=== PATIENT | male | born 1955 | race Caucasian/White ===

== ENCOUNTER → 2016-06-10 | Outpatient (CLI) | payer OTHER ==
[2015-01-23 12:28] VITALS: BP 140/76
--- NOTE | 2016-06-10 16:49 | VAS ---
HISTORY: Bilateral leg pain. Both feet swollen. Study: Bilateral lower extremity venous Doppler Comparison: None. TECHNIQUE: Real-time dynamic grayscale, color flow and complete spectral Doppler ultrasound examina tion of the major deep venous structures were obtained of both lower extremities. FINDINGS: Right lower extremity: Real-time examination shows no evidence of thrombus within the common femora l, superficial femoral, or popliteal veins. There is normal compressibility throughout. Color flow i maging shows normal venous blood flow within the major vessels. Doppler examination shows normal katie ous waveforms with appropriate respiratory variation and augmentation. Left lower extremity: Real-time examination shows no evidence of thrombus within the common femoral, superficial femoral, or popliteal veins. There is normal compressibility throughout. Color flow bob ging shows normal venous blood flow within the major vessels. Doppler examination shows normal venou s waveforms with appropriate respiratory variation and augmentation. IMPRESSION: 1. Normal bilateral lower extremity venous Doppler, without evidence of DVT. Reported By:
== END ==
LOC: RAD 15:32
PROVIDERS: ATTEND Internal Medicine
DX: M79.604 Pain in right leg (principal); M79.605 Pain in left leg; R60.1 Generalized edema
CPT/HCPCS: 93970

== ENCOUNTER → 2016-07-20 | Outpatient (CLI) | payer OTHER ==
[2015-01-23 12:28] VITALS: BP 140/76
--- NOTE | 2016-07-20 16:54 | MRI ---
MRI right shoulder without contrast Indication: Right shoulder pain. Comparison: Radiograph 05/26/2016 Technique: Multiplanar, multisequence MR images of the right shoulder were obtained without contrast . Findings: There is widening of the AC joint, similar to the recent radiograph, without significant d isplacement of the distal clavicle in the craniocaudal plane. There is a moderate amount of fluid wi thin and about the AC joint. The coracoclavicular and coracoacromial ligaments appear grossly intact . There is a high-grade undersurface tear of the anterior distal supraspinatus with tear propagation t hrough the intra substance supraspinatus critical zone fibers, likely into the infra spinatus at the musculotendinous junction, as there is a small amount of fluid noted in this region. There is a full-thickness tear component involving the leading edge supraspinatus fibers, with approximately 1. 6 cm of medial tendon retraction. There is also a high-grade partial undersurface tear of the distal supraspinatus, associated with significant medial dislocation of the long head biceps tendon just a nterior to the glenohumeral articulation. The biceps tendon is diffusely thickened and frayed in thi s region, suggesting partial intrasubstance tear. The teres minor is intact. There is cystic change of superior humeral head underlying the conjoined tendon footplate, consisten t with chronic tendinopathy. There is mild diffuse glenohumeral chondrosis, without full-thickness c hondral defect. There is degenerative fraying of the superior labrum. No overt labral tear is identi fied. There is a moderate-sized joint effusion. No significant muscle atrophy is appreciated. Impression: 1. High-grade articular sided tear of the supraspinatus with mildly retracted full-thickness compone nt involving the leading edge fibers. There is also tear propagation posteriorly to the infraspinatus tendon, where there is a delaminating component along the musculotendinous junction. 2. High-grade subscapularis tear with with medial dislocation of the long head biceps tendon with pr obable intra substance biceps tendon tear. 3. Low grade AC joint injury 4. Joint effusion Reported By:
== END | disposition home or self-care (01) ==
LOC: RAD 13:13
PROVIDERS: ATTEND Internal Medicine
DX: M25.511 Pain in right shoulder (principal); S49.81XA Other specified injuries of right shoulder and upper arm, initial encounter; M25.411 Effusion, right shoulder; S46.811A Strain of other muscles, fascia and tendons at shoulder and upper arm level, right arm, initial encounter; X58.XXXA Exposure to other specified factors, initial encounter
CPT/HCPCS: 73221

== ENCOUNTER → 2017-04-25 | Outpatient (CLI) | payer OTHER ==
[2015-01-23 12:28] VITALS: BP 140/76
[~2017-04-25] MED LIST: NS 100 ML IV 100 ML IV ONE
[2017-04-25 11:07] LABS: CREATININE 1.26 mg/dL (0.70-1.30)
--- NOTE | 2017-04-25 12:59 | CT ---
HISTORY: Bronchopneumonia, mild cysts, and cough. Study: CT chest with contrast Comparison: Chest x-ray dated January 26, 2014. Technique: Multiple axial images of the chest were obtained from the thoracic inlet to the upper abdo men after the administration of IV contrast. MIP images were obtained. Dose reduction techniques incl uding Automated Exposure Control (AEC) and adjustment of mA and kV were utilized. Findings: The mediastinum does not demonstrate significant pathological lymphadenopathy. There is no paracardi al effusion observed. The thoracic aorta is normal in its contour without evidence for aneurysmal di latation. The central pulmonary arterial system does not demonstrate central filling defects to sugg est pulmonary emboli. Moderate atherosclerotic vascular calcifications of the coronary arteries. Biapical scarring. Scattered tree-in-bud and ground-glass opacities are seen throughout the lungs. No suspicious pulmonary nodules, masses, pleural effusion, focal consolidation, or pneumothorax. The ga llbladder is surgically absent. 1.7 cm simple appearing cyst within the left interpolar kidney. Remai brandon upper abdominal structures demonstrate a normal contrast appearance. Mild degenerative changes o f the spine. No aggressive osseous lesions. IMPRESSION: 1. Bilateral scattered tree-in-bud and ground-glass opacities are seen throughout the lungs. This li donya represents an underlying atypical mycobacterial infection. However, recommend clinical/laborator y correlation. 2. No CT evidence to suggest pulmonary embolus. 3. Other chronic findings as above. Reported By:
== END ==
LOC: RAD 10:40
PROVIDERS: ATTEND Internal Medicine
DX: J18.0 Bronchopneumonia, unspecified organism (principal); R05 Cough; R04.2 Hemoptysis
CPT/HCPCS: 36415; 71260; 82565; 84520; A4222

== ENCOUNTER 2017-05-31 22:37 | Inpatient (IN) | payer OTHER ==
[2017-05-31] MEDS ORDERED: NS 1000 ML 1,000 ML ONE (22:48)
--- NOTE | 2017-05-31 23:17 | DR.ABDMALE ---
HPI - Time seen Time seen: 23:00 - PCP Primary Care Physician: Farhan - Complaint Chief Complaint Doctors Comments: Patient admits to having epigastric pain around 1500 today, pain would not ease tried to vomit but pain got worse. He admits to a history of pancreatitis diagnosed 2013. The pain is epigastric non- radiating. Chief Complaint:: Started having severe abdominal pain around 3:00pm today which has became worse - Mode of arrival Mode of Arrival: EMS - Timing Onset of Chief Complaint: 05/31/17 PMH - PMH Past Medical History: Yes Past Medical History: GERD Past Medical History Comment: Hx. of Pancreatitis Past Surgical History: Yes Surgical History: Cholecystectomy, Ortho Surgery - Family History History of Family Medical Conditions: No Family Medical History: Diabetes Mellitus, Coronary Artery Disease, Hypertension - Social History Does any household member use tobacco: No Alcohol Use: None Do you use any recreational Drugs:: No Lives With: Significant Other Lives Where: Home - infectious screening In the last 2 months have you had wt loss of >10#?: NO Have you traveled outside the country in the last 6 months?: No Isolation: Standard ROS - Review of Systems Eyes: No Symptoms Reported ENTM: No Symptoms Reported Respiratoy: No Symptoms Reported Cardiovascular: No Symptoms Reported Gastrointestinal/Abdominal: No Symptoms Reported Genitourinary: No Symptoms Reported Neurological: No Symptoms Reported Musculoskeletal: No Symptoms Reported Integumentary: No Symptoms Reported Hematologic/Lymphatic: No Symptoms Reported Endocrine: No Symptoms Reported Psychiatric: No Symptoms Reported All Other Systems: Reviewed and Negative PE - Vital Signs Vital Signs: Temp Pulse Resp BP BP BP Pulse Ox 06/01/17 00:30 205/99 05/31/17 22:40 97.2 F L 58 L 18 181/95 96 01/23/15 12:00 140/76 140/76 01/22/15 04:00 136/82 - General Limitations: No Limitations General Appearance: Alert, In No Apparent Distress - Head Head Exam: Normal Inspection, Atraumatic - Eyes Eye exam: Normal Appearance, PERRL, EOMI - ENT ENT Exam: Normal Exam - Neck Neck Exam: Normal Inspection, Full ROM - Chest Chest Inspection: Normal Inspection - Respiratory Respiratory Exam: Normal Lung Sounds Bilat Respiratory Exam: Bilateral Clear to Auscultation - Cardiovascular Cardiovascular Exam: Regular Rate, Normal Rhythm - Abdominal Exam Abdominal Exam: Normal Inspection, Distention, Tenderness (epigastric). negative: Rebound, Rigidity Abdominal Tenderness: Epigastrium - Rectal Rectal Exam: Deferred - Back Back Exam: Normal Inspection - Extremeties Extremities Exam: Normal Inspection, Full ROM - Exam: Male: Deferred - Neurologic Neurological Exam: Alert, Oriented X3, CN II-XII Intact - Psychiatric Psychiatric Exam: Normal Affect - Skin Skin Exam: Warm, Dry, Intact Course - Reevaluation 1st: Improved - Consultation Called: 01:10 - Education/Counseling Educated On: Treatment, Diagnosis, Prognosis ROR - Labs Reviewed Result Diagrams: 05/31/17 23:40 05/31/17 23:40 Laboratory: WBC 17.5 X10^3/uL (3.6-10.0) H 05/31/17 23:40 RBC 4.68 X10^6/uL (4.7-6.0) L 05/31/17 23:40 Hgb 15.2 g/dL (13.5-18.0) 05/31/17 23:40 Hct 43.2 % (42.0-54.0) 05/31/17 23:40 MCV 92.3 fL (80.0-100.0) 05/31/17 23:40 MCH 32.5 pg (27.0-34.0) 05/31/17 23:40 MCHC 35.2 g/dL (33.0-35.0) H 05/31/17 23:40 RDW 14.5 % (11.6-16.5) 05/31/17 23:40 Plt Count 300 X10^3/uL (150.0-450.0) 05/31/17 23:40 MPV 7.8 fL (7.4-11.0) 05/31/17 23:40 Neut % 87.4 % (42.0-75.0) H 05/31/17 23:40 Lymph % 6.9 % (21.0-51.0) L 05/31/17 23:40 Jasper % 5.3 % (0.0-13.0) 05/31/17 23:40 Eos % 0.1 % (0.9-2.9) L 05/31/17 23:40 Baso % 0.3 % (0.2-1.0) 05/31/17 23:40 Neut # 15.3 x10^3/uL (2.2-4.8) H 05/31/17 23:40 Lymph # 1.2 X10^3/uL (1.3-2.9) L 05/31/17 23:40 Jasper # 0.9 x10^3/uL (0.3-0.8) H 05/31/17 23:40 Eos # 0.0 x10^3/uL (0.0-0.2) 05/31/17 23:40 Baso # 0.0 X10^3/uL (0.0-0.1) 05/31/17 23:40 Absolute Nucleated RBC 0.0 /100WBC 05/31/17 23:40 Sodium 141 mmol/L (136-145) 05/31/17 23:40 Corrected Sodium TNP 05/31/17 23:40 Potassium 2.3 mmol/L (3.5-5.1) L* 05/31/17 23:40 Chloride 99 mmol/L (98-107) 05/31/17 23:40 Carbon Dioxide 35.7 mmol/L (21-32) H 05/31/17 23:40 BUN 5 mg/dL (7-18) L 05/31/17 23:40 Creatinine 1.05 mg/dL (0.70-1.30) 05/31/17 23:40 Est GFR (MDRD) Af Amer > 60 (>60) 05/31/17 23:40 Est GFR (MDRD) Non-Af > 60 (>60) 05/31/17 23:40 Glucose 105 mg/dL (65-99) H 05/31/17 23:40 Calcium 8.5 mg/dL (8.5-10.1) 05/31/17 23:40 Corrected Calcium TNP 05/31/17 23:40 Total Bilirubin 0.40 mg/dL (0.2-1.0) 05/31/17 23:40 AST 20 Units/L (15-37) 05/31/17 23:40 ALT 16 Units/L (12-78) 05/31/17 23:40 Alkaline Phosphatase 74 Units/L (46-116) 05/31/17 23:40 C-Reactive Protein 8.10 mg/L (0-3.0) H 05/31/17 23:40 Total Protein 8.1 g/dL (6.4-8.2) 05/31/17 23:40 Albumin 3.9 g/dL (3.4-5.0) 05/31/17 23:40 Globulin 4.2 g/dL (2.5-4.5) 05/31/17 23:40 Albumin/Globulin Ratio 0.9 Ratio (1.1-2.1) L 05/31/17 23:40 Amylase 648 Units/L (25-115) H 05/31/17 23:40 Lipase 4958 Units/L (73-393) H 05/31/17 23:40 H. pylori IgG Antibody Positive (NEGATIVE) A 05/31/17 23:40 - XRAY XRAY Interpreted by: Radiologist (CT Abdomen: There is peripancreatic stranding , particularly about the head of the pancreas with small calcific density seen on axial image 33 near the proximal pancreas duct. There is fluid around the pancreas in the adjacvent mesenteric. There is mild thickening of the adjacent duodenum. Intrahepatic biliary dilatation noted. The gallbladder is absent. The liver, spleen, adrenal glands, stomach and small bowel are normal. Colonic diverticulosis is noted without inflammatory change. The colon and appendix show no acute abnormality. Vasculature shows minimal palque. The kidneys show no hydronephrosis with a few cyst noted. The urinary bladder and rectum are irvin. Prostate gland is normal. Inpression; Acute pancreatitis without convincing pancreas necrosis or organized fluid collection. Biliary dilatation, colonic diverticulosis, renal cysts and patchy pulmonary opacities. Chronic interstitial lung change favored.) - Diagnosis Discharge Problem: Hypokalemia Acute pancreatitis Qualifiers: Pancreatitis type: unspecified pancreatitis type Acute pancreatitis complication: unspecified Qualified Code(s): K85.90 - Acute pancreatitis without necrosis or infection, unspecified - Discharge Plan Condition: Stable - Follow ups/Referrals Follow ups/Referrals: Micah Real [Primary Care Provider] - 3 days - Instructions
[2017-05-31] MEDS ORDERED: NS 1000 ML 1,000 ML IV SCH (23:45)
[2017-05-31 23:55] LABS: BASOPHILS % (AUTO) 0.3 % (0.2-1.0); EOSINOPHILS % (AUTO) 0.1 % (0.9-2.9); HEMATOCRIT 43.2 % (42.0-54.0); HEMOGLOBIN 15.2 g/dL (13.5-18.0); LYMPHOCYTES # (AUTO) 1.2 X10^3/uL (1.3-2.9); LYMPHOCYTES % (AUTO) 6.9 % (21.0-51.0); MEAN CORPUSCULAR HEMOGLOBIN 32.5 pg (27.0-34.0); MEAN CORPUSCULAR HGB CONC 35.2 g/dL (33.0-35.0); MEAN CORPUSCULAR VOLUME 92.3 fL (80.0-100.0); MEAN PLATELET VOLUME 7.8 fL (7.4-11.0); MONOCYTES # (AUTO) 0.9 x10^3/uL (0.3-0.8); MONOCYTES % (AUTO) 5.3 % (0.0-13.0); NEUTROPHILS # (AUTO) 15.3 x10^3/uL (2.2-4.8); NEUTROPHILS % (AUTO) 87.4 % (42.0-75.0); PLATELET COUNT 300 X10^3/uL (150.0-450.0); RED BLOOD COUNT 4.68 X10^6/uL (4.7-6.0); RED CELL DISTRIBUTION WIDTH 14.5 % (11.6-16.5); WHITE BLOOD COUNT 17.5 X10^3/uL (3.6-10.0)
[2017-05-31 23:59] LABS: BLOOD UREA NITROGEN 5 mg/dL (7-18); CALCIUM 8.5 mg/dL (8.5-10.1); CARBON DIOXIDE 35.7 mmol/L (21-32); CHLORIDE 99 mmol/L (98-107); CREATININE 1.05 mg/dL (0.70-1.30); SODIUM 141 mmol/L (136-145); eGFR BLACK RACES > 60 (>60); eGFR NON BLACK RACES > 60 (>60)
[2017-06-01 00:04] LABS: ALANINE AMINOTRANSFERASE 16 Units/L (12-78); ALBUMIN 3.9 g/dL (3.4-5.0); ALKALINE PHOSPHATASE 74 Units/L (46-116); AMYLASE 648 Units/L (25-115); ASPARTATE AMINO TRANSFERASE 20 Units/L (15-37); TOTAL PROTEIN 8.1 g/dL (6.4-8.2)
[2017-06-01] MEDS ORDERED: K-LYTE EFFERVESCENT PO ONE (00:06)
[2017-06-01] MEDS ORDERED: K-LYTE EFFERVESCENT ONE (00:13)
[2017-06-01] MEDS ORDERED: DILAUDID INJ IVP ONE (00:20)
[2017-06-01] MEDS ORDERED: DILAUDID INJ ONE (00:22)
[2017-06-01 00:37] LABS: LIPASE 4958 Units/L (73-393)
[2017-06-01] MEDS ORDERED: CATAPRES TAB 0.2 MG ONE ×2 (00:43→02:47)
[2017-06-01] MEDS ORDERED: CATAPRES TAB 0.2 MG PO ONE ×2 (01:00→02:45)
--- NOTE | 2017-06-01 01:51 | CT ---
CT abdomen and pelvis with contrast Indication: Abdominal pain and pancreatitis Technique: Helical images through the abdomen and pelvis after IV contrast. Coronal and sagittal re formats provided. Comparison: 01/29/2014 CT Findings: Limited images through the lower chest shows patchy peribronchial thickening. Review of b one windows shows no destructive osseous lesion. Abdomen: There is peripancreatic stranding, particularly about the head of the pancreas with small c alcific density seen on axial image 33 near the proximal pancreas duct. There is fluid around the pa ncreas in the adjacent mesenteric. There is mild thickening of the adjacent duodenum. Intrahepatic biliary dilatation noted. The gallbladder is absent. The liver, spleen, adrenal glands, stomach and small bowel are normal. Colonic diverticulosis is noted without inflammatory change. The colon and appendix show no acute abnormality. Vasculature shows minimal plaque. The kidneys show no hydronep hrosis with a few cyst noted. Pelvis: The urinary bladder and rectum are normal. Prostate gland is normal. Impression: 1. Acute pancreatitis without convincing pancreas necrosis or organized fluid collection. 2. Biliary dilatation, colonic diverticulosis, renal cysts, and patchy pulmonary opacities. Chronic interstitial lung change favored. Reported By:
[2017-06-01] MEDS ORDERED: DILAUDID INJ IVP PRN (02:47)
[2017-06-01] MEDS ORDERED: NS + KCL 20 MEQ/L 1,000 ML IV ONE (03:30)
[2017-06-01] MEDS: NS IV SCH ×6 (03:41→20:34)
[2017-06-01] MEDS: POTASSIUM CHLORIDE IV SCH ×6 (03:41→20:34)
[2017-06-01] MEDS: NICOTINE PATCH TD SCH ×2 (03:42→08:54)
[2017-06-01] MEDS: ZANAFLEX PO SCH ×3 (05:24→21:42)
[2017-06-01 06:26] LABS: BLOOD UREA NITROGEN 6 mg/dL (7-18); CALCIUM 8.3 mg/dL (8.5-10.1); CHLORIDE 100 mmol/L (98-107); COR NA(FOR HYPERGLY) 143 mmol/L (136-145); CREATININE 1.04 mg/dL (0.70-1.30); SODIUM 142 mmol/L (136-145); eGFR BLACK RACES > 60 (>60); eGFR NON BLACK RACES > 60 (>60)
[2017-06-01] MEDS ORDERED: MAG-OX TAB PO PRN (06:28)
[2017-06-01] MEDS ORDERED: K-LYTE EFFERVESCENT PO PRN (06:28)
[2017-06-01] MEDS ORDERED: MAGNESIUM SULFATE 1 GM/100 mL PREMIX 1 GM/100 ML BAG IV PRN (06:28)
[2017-06-01] MEDS ORDERED: POTASSIUM CHL 40 MEQ/NS 0.45% 500 ML IV PRN (06:28)
[2017-06-01] MEDS ORDERED: POTASSIUM CHLORIDE LIQ 20 MEQ UDC PO PRN (06:28)
[2017-06-01] MEDS ORDERED: K-RIDER 10 MEQ/NS 100 ML 10 MEQ/100 ML BAG IV PRN (06:28)
[2017-06-01] MEDS: POTASSIUM CHL 60 MEQ/NS 0.45% 500 ML IV PRN ×2 (06:44→17:50)
[2017-06-01 08:17] LABS: BILIRUBIN,URINE NEGATIVE (NEGATIVE); BLOOD/HEMOGLOBIN,URINE 1+ (NEGATIVE); GLUCOSE, URINE NEGATIVE (NEGATIVE); KETONES,URINE NEGATIVE (NEGATIVE); LEUKOCYTE ESTERASE ,URINE NEGATIVE (NEGATIVE); NITRITES,URINE NEGATIVE (NEGATIVE); PROTEIN,URINE 2+ (NEGATIVE); UROBILINOGEN,URINE NORMAL (NORMAL)
[2017-06-01 08:26] LABS: APPEARANCE,URINE CLEAR (CLEAR); BACTERIA,URINE TRACE /HPF (NEGATIVE); COLOR,URINE YELLOW (YELLOW); RBC,URINE 0-3 /HPF (NONE SEEN); SQUAMOUS EPITHELIAL CELL,UR RARE /HPF (NEGATIVE)
[2017-06-01] MEDS: VALIUM PO PRN (08:52)
[2017-06-01] MEDS: ZEBETA TAB 5 MG PO SCH (08:52)
[2017-06-01] MEDS: FOLIC ACID TAB 1 MG PO SCH (08:52)
[2017-06-01] MEDS: NORVASC TAB 5 MG PO SCH (08:52)
[2017-06-01] MEDS: CELEBREX PO SCH (08:53)
[2017-06-01] MEDS ORDERED: NEBIVOLOL HCL 10 MG PO SCH (09:00)
[2017-06-01] MEDS: DILAUDID INJ IVP PRN ×3 (10:21→20:31)
--- NOTE | 2017-06-01 12:48 | DR.H&P ---
H&P - History & Physical for Day of: H&P Date: 06/01/17 (A) - Chief Complaint Chief Complaint: ABDOMINAL PAIN - Allergies Allergies/Adverse Reactions: Allergies Allergy/AdvReac Type Severity Reaction Status Date / Time No Known Drug Allergies Allergy Verified 06/01/17 00:31 - History of Present Illness History of Present Illness: IS A 61 YEAR OLD PATIENT OF OURS WHO PRESENTED TO THE EMERGENCY ROOM WITH COMPLAINTS OF SEVERE ABDOMINAL PAIN. PATIENT REPORTS THAT PAIN BEGAN AROUND 12 HOURS PRIOR TO ARRIVAL TO THE ER AND HAS PROGRESSIVELY GOTTEN WORSE. PATIENT REPORTS THAT PAIN IS IN THE EPIGASTRIC AREA AND IS NON-RADIATING. MEDICAL HISTORY INCLUDES GERD, HTN, CAD, HYPERLIPIDEMIA, HX OF PANCREATITIS, CHRONIC NECK AND BACK PAIN, ANXIETY, DEPRESSION, CHOLECYSTECTOMY, BILATERAL TKA, NECK SURGERY, AND ORAL SURGERY. ON ARRIVAL TO THE ER, VITALS WERE 97.2-58-18-96%-181/95. LABS WERE OBTAINED. ABNORMAL LAB VALUES INCLUDE THE FOLLOWING: WBC 17.5, RBC 4.68, POTASSIUM 2.6, BUN 6, GLUCOSE 126, CALCIUM 8.3, CRP 8.10, AMYLASE 648, LIPASE 4958. PATIENT WAS ALSO POSITIVE FOR H-PYLORI. AN ABD/PELVIS CT WAS OBTAINED AND REVEALED: Acute pancreatitis without convincing pancreas necrosis or organized fluid collection. Biliary dilatation, colonic diverticulosis, renal cysts and patchy pulmonary opacities. Chronic interstitial lung change favored. PATIENT WAS GIVEN CATAPRES 0.2MG PO X 2TABS, DILAUDID 1MG IV X 1, K-LYTE EFFERVESCENT TABS 25MEQ X 2, AND NORMAL SALINE @125ML/HR IN THE ER. HE REPORTED SLIGHT IMPROVEMENT IN PAIN. A DECREASE IN BLOOD PRESSURE TO 129/74 WAS NOTED. WE ADMITTED PATIENT TO THE HOSPITAL FOR FURTHER TREATMENT AND EVALUATION. WE PLAN TO FOLLOW UP WITH AM LABS AND CONTINUE TO MONITOR PATIENT. - Past Medical History Past Medical History: Anxiety, Arthritis, Coronary Artery Disease, Depression, Dyslipidemia, GERD, Hypertension Additional Medical History: Muscle Weakness, Chronic Neck and Back pain, PANCREATITIS - Past Surgical History Surgical History: Cholecystectomy, Ortho Surgery - Family History Family Medical History: Diabetes Mellitus, Coronary Artery Disease, Hypertension - Social History Does patient currently use any type of tobacco product: Yes Have you used tobacco products in the last 12 months: Yes Type of Tobacco Use: Cigarettes Does any household member use tobacco: No Alcohol Use: None Drug Use: None - Medications Home Medications: Alprazolam [Alprazolam] 1 tab PO HS 06/01/17 [History Confirmed 06/01/17] Celecoxib [CELEBREX 100 MG *] 200 mg PO DAILY 06/01/17 [History Confirmed ] Clonazepam [Clonazepam] 2 mg PO HS 06/01/17 [History Confirmed 06/01/17] Clonidine HCl [CATAPRES 0.2 MG TAB *] 1 tab PO HS 06/01/17 [History Confirmed ] Diazepam [Valium] 5 mg PO Q8H PRN 06/01/17 [History Confirmed 06/01/17] Esomeprazole Magnesium [Nexium 20 mg] 1 - 2 tabs PO DAILY 06/01/17 [History Confirmed 06/01/17] Folic Acid [Folic Acid] 1 tab PO DAILY 06/01/17 [History Confirmed 06/01/17] Meloxicam [Meloxicam] 1 tab PO DAILY 06/01/17 [History Confirmed 06/01/17] Oxycodone HCl/Acetaminophen [Oxycodone/Acetaminophen 10-325 mg] 1 tab PO BID PRN 06/01/17 [History Confirmed 06/01/17] Tizanidine HCl [Tizanidine HCl] 1 tab PO TID 06/01/17 [History Confirmed ] Zolpidem Tartrate [Zolpidem Tartrate] 1 tab PO HS 06/01/17 [History Confirmed ] - Review of Systems Constitutional: No Symptoms Reported Eyes: No Symptoms Reported. denies: See HPI, Pain, Vision Change, Conjunctivae Inflammation, Eyelid Inflammation, Redness, Other ENT: No Symptoms Reported. denies: See HPI, Ear Pain, Ear Discharge, Nose Pain , Nose Discharge, Nose Congestion, Mouth Pain, Mouth Swelling, Throat Pain, Throat Swelling, Other Respiratory: No Symptoms Reported. denies: See HPI, Cough, Dry, Shortness of Breath, Hemoptysis, SOB with Excertion, Pleuritic Pain, Sputum, Wheezing, Other Cardiovascular: No Symptoms Reported. denies: Chest Pain, See HPI, Palpitations , Orthopnea, Paroxysmal Noc. Dyspnea, Edema, Light Headedness, Other Gastrointestinal: See HPI, Nausea, Vomiting, Abdominal Pain Genitourinary: No Symptoms Reported. denies: See HPI, Dysuria, Frequency, Incontinence, Hematuria, Retention, Other Musculoskeletal: No Symptoms Reported. denies: See HPI, Shoulder Pain, Arm Pain , Back Pain, Hand Pain, Leg Pain, Foot Pain, Neck Pain, Other Skin: No Symptoms Reported. denies: See HPI, Rash, Lesions, Jaundice, Bruising , Wound, Ecchymosis, Other Neurological: No Symptoms Reported. denies: See HPI, Weakness, Numbness, Incoordination, Change in Speech, Confusion, Seizures, Other - Physical Exam Vital Signs: Temperature 98 F Pulse Rate [Left Brachial] 57 Pulse Rate [Apical] 65 Pulse Rate 58 Respiratory Rate 18 Blood Pressure [Left Arm] 149/83 Blood Pressure [Right Arm] 129/74 Blood Pressure 181/95 O2 Sat by Pulse Oximetry 96 Oriented: Normal. negative: Time, Person, Place, Not Oriented, Unable to test, Other Eyes: Normal. negative: Blurred Vision, Diplopia, Discharge, Pain, Redness, Photophobia, Other Ear: Normal. negative: Right, Left, Swelling, Ecchymosis, Hemotypanum, Abrasion , Laceration Nose: Normal Throat: Normal Respiratory: Clear Throughout Cardiovascular: Normal : Normal Auscultation: Bowel Sounds: Normal Palpation: Normal Tenderness: Epigastric, Moderate. negative: Rebound, Guarding, Rigidity Skin: Normal Musculoskeletal: Normal Psychiatric: Normal Mood Description: Calm Affect: Normal Speech Pattern: Clear - Assessment/Plan (1) Acute pancreatitis Qualifiers: Pancreatitis type: unspecified pancreatitis type Acute pancreatitis complication: unspecified Qualified Code(s): K85.90 - Acute pancreatitis without necrosis or infection, unspecified Status: Acute Plan: NORMAL SALINE WITH 20MEQ KCL @ 125ML/HR, DILAUDID 2MG IV Q4H, CONTINUE TO MONITOR
[2017-06-01] MEDS: CATAPRES TAB 0.2 MG PO SCH (20:28)
[2017-06-01] MEDS: AMBIEN PO SCH (20:28)
[2017-06-01] MEDS: XANAX PO SCH (20:29)
[2017-06-01] MEDS: KLONOPIN TAB 1 MG PO SCH (20:29)
[2017-06-01] MEDS ORDERED: PATIENT'S HOME MEDICATION (Alprazolam [Alprazolam] 1 TAB) PO SCH (21:00)
[2017-06-02] MEDS: DILAUDID INJ IVP PRN ×4 (02:50→19:59)
[2017-06-02] MEDS: VALIUM PO PRN (02:50)
[2017-06-02] MEDS: NS IV SCH ×2 (03:53)
[2017-06-02] MEDS: POTASSIUM CHLORIDE IV SCH ×2 (03:53)
[2017-06-02 05:25] LABS: BASOPHILS % (AUTO) 0.4 % (0.2-1.0); EOSINOPHILS # (AUTO) 0.4 x10^3/uL (0.0-0.2); EOSINOPHILS % (AUTO) 3.3 % (0.9-2.9); HEMATOCRIT 44.2 % (42.0-54.0); HEMOGLOBIN 15.5 g/dL (13.5-18.0); LYMPHOCYTES # (AUTO) 2.2 X10^3/uL (1.3-2.9); MEAN CORPUSCULAR HEMOGLOBIN 32.3 pg (27.0-34.0); MEAN CORPUSCULAR VOLUME 92.3 fL (80.0-100.0); MEAN PLATELET VOLUME 7.9 fL (7.4-11.0); MONOCYTES # (AUTO) 1.1 x10^3/uL (0.3-0.8); MONOCYTES % (AUTO) 9.6 % (0.0-13.0); NEUTROPHILS # (AUTO) 7.4 x10^3/uL (2.2-4.8); NEUTROPHILS % (AUTO) 66.7 % (42.0-75.0); PLATELET COUNT 259 X10^3/uL (150.0-450.0); RED BLOOD COUNT 4.78 X10^6/uL (4.7-6.0); RED CELL DISTRIBUTION WIDTH 14.8 % (11.6-16.5); WHITE BLOOD COUNT 11.1 X10^3/uL (3.6-10.0)
[2017-06-02] MEDS: ZANAFLEX PO SCH ×3 (05:31→21:41)
[2017-06-02 05:36] LABS: ALANINE AMINOTRANSFERASE 17 Units/L (12-78); ALBUMIN 3.4 g/dL (3.4-5.0); ALKALINE PHOSPHATASE 78 Units/L (46-116); AMYLASE 366 Units/L (25-115); ASPARTATE AMINO TRANSFERASE 16 Units/L (15-37); BLOOD UREA NITROGEN 7 mg/dL (7-18); CALCIUM 8.1 mg/dL (8.5-10.1); CARBON DIOXIDE 31.9 mmol/L (21-32); CHLORIDE 104 mmol/L (98-107); CREATININE 0.99 mg/dL (0.70-1.30); LIPASE 1500 Units/L (73-393); SODIUM 142 mmol/L (136-145); TOTAL PROTEIN 7.4 g/dL (6.4-8.2); eGFR BLACK RACES > 60 (>60); eGFR NON BLACK RACES > 60 (>60)
[2017-06-02 08:36] LABS: CHOL/HDL RATIO 5.8 (0.0-5.0)
[2017-06-02] MEDS: CELEBREX PO SCH (09:22)
[2017-06-02] MEDS: NORVASC TAB 5 MG PO SCH (09:22)
[2017-06-02] MEDS: ZEBETA TAB 5 MG PO SCH (09:22)
[2017-06-02] MEDS: FOLIC ACID TAB 1 MG PO SCH (09:22)
[2017-06-02] MEDS: NICOTINE PATCH TD SCH (09:23)
[2017-06-02 09:36] VITALS: BMI 24.4
[2017-06-02] MEDS ORDERED: NS 1000 ML 1,000 ML IV ONE ×2 (09:42→10:11)
[2017-06-02] MEDS: NS 1000 ML 1,000 ML IV SCH ×2 (14:05→19:58)
[2017-06-02] MEDS: AMBIEN PO SCH (20:42)
[2017-06-02] MEDS: CATAPRES TAB 0.2 MG PO SCH (20:43)
[2017-06-02] MEDS: MILK OF MAGNESIA PO SCH (20:43)
[2017-06-02] MEDS: XANAX PO SCH (20:43)
[2017-06-02] MEDS: KLONOPIN TAB 1 MG PO SCH (20:43)
[2017-06-03] MEDS: NS 1000 ML 1,000 ML IV SCH (04:35)
[2017-06-03] MEDS: DILAUDID INJ IVP PRN (05:12)
[2017-06-03] MEDS: ZANAFLEX PO SCH (05:18)
[2017-06-03 06:07] LABS: BASOPHILS % (AUTO) 0.4 % (0.2-1.0); EOSINOPHILS # (AUTO) 0.3 x10^3/uL (0.0-0.2); EOSINOPHILS % (AUTO) 3.6 % (0.9-2.9); HEMATOCRIT 39.6 % (42.0-54.0); LYMPHOCYTES # (AUTO) 1.9 X10^3/uL (1.3-2.9); LYMPHOCYTES % (AUTO) 22.8 % (21.0-51.0); MEAN CORPUSCULAR HEMOGLOBIN 32.5 pg (27.0-34.0); MEAN CORPUSCULAR HGB CONC 35.4 g/dL (33.0-35.0); MEAN CORPUSCULAR VOLUME 91.7 fL (80.0-100.0); MEAN PLATELET VOLUME 7.9 fL (7.4-11.0); MONOCYTES # (AUTO) 0.8 x10^3/uL (0.3-0.8); MONOCYTES % (AUTO) 9.5 % (0.0-13.0); NEUTROPHILS # (AUTO) 5.5 x10^3/uL (2.2-4.8); NEUTROPHILS % (AUTO) 63.7 % (42.0-75.0); PLATELET COUNT 277 X10^3/uL (150.0-450.0); RED BLOOD COUNT 4.32 X10^6/uL (4.7-6.0); RED CELL DISTRIBUTION WIDTH 14.4 % (11.6-16.5); WHITE BLOOD COUNT 8.6 X10^3/uL (3.6-10.0)
[2017-06-03 06:25] LABS: ALANINE AMINOTRANSFERASE 37 Units/L (12-78); ALKALINE PHOSPHATASE 158 Units/L (46-116); AMYLASE 126 Units/L (25-115); ASPARTATE AMINO TRANSFERASE 89 Units/L (15-37); BLOOD UREA NITROGEN 6 mg/dL (7-18); CALCIUM 7.4 mg/dL (8.5-10.1); CARBON DIOXIDE 28.1 mmol/L (21-32); CHLORIDE 105 mmol/L (98-107); COR CA(FOR HYPOALB) 8.2 mg/dL (8.5-10.1); CREATININE 0.91 mg/dL (0.70-1.30); LIPASE 856 Units/L (73-393); SODIUM 141 mmol/L (136-145); TOTAL PROTEIN 6.8 g/dL (6.4-8.2); eGFR BLACK RACES > 60 (>60); eGFR NON BLACK RACES > 60 (>60)
[2017-06-03] MEDS: POTASSIUM CHL 60 MEQ/NS 0.45% 500 ML IV PRN (08:53)
[2017-06-03] MEDS: NORVASC TAB 5 MG PO SCH (08:57)
[2017-06-03] MEDS: FOLIC ACID TAB 1 MG PO SCH (08:57)
[2017-06-03] MEDS: MILK OF MAGNESIA PO SCH ×2 (08:57→09:03)
[2017-06-03] MEDS: ZEBETA TAB 5 MG PO SCH (08:57)
[2017-06-03] MEDS: CELEBREX PO SCH (08:57)
[2017-06-03] MEDS: NICOTINE PATCH TD SCH (08:58)
[2017-06-03 13:49] VITALS: BP 150/77
== END 2017-06-03 12:50 | disposition home or self-care (01) | DRG 440 ==
LOC: ER 22:40 → MED/SURG 06-01 02:37
PROVIDERS: ADMIT Internal Medicine; ATTEND Internal Medicine
DX: K85.80 Other acute pancreatitis without necrosis or infection (principal); B96.81 Helicobacter pylori [H. pylori] as the cause of diseases classified elsewhere; R10.13 Epigastric pain; E87.6 Hypokalemia; R10.84 Generalized abdominal pain; K21.9 Gastro-esophageal reflux disease without esophagitis; I10 Essential (primary) hypertension; I25.10 Atherosclerotic heart disease of native coronary artery without angina pectoris; E78.2 Mixed hyperlipidemia
CPT/HCPCS: 36415; 74177; 80048; 80053; 80061; 81001; 82150; 83690; 83735; 84132; 85025; 86140; 86677; 94760; 96365; 96367; 96374; 99284; A4216; J1170; J3480

== ENCOUNTER 2019-08-11 16:05 | Inpatient (IN) ==
[2019-08-11] MEDS ORDERED: CATAPRES TAB 0.2 MG PO ONE (16:15)
[2019-08-11] MEDS ORDERED: CATAPRES TAB 0.2 MG ONE (16:16)
--- NOTE | 2019-08-11 16:28 | DR.AMS ---
HPI Time Seen Time Seen by Provider: 08/11/19 16:23 PCP Primary Care Physician: DR MARIO HPI Comment HPI Comment: PATIENT IS 63YR OLS MALE WITH HISTORY OF HYPERTENSIN CURRENTLY ON BYSTORIC 10MG DAILY, NORVASE 5MG DAILY AND CLONIDINE IS IN ER WITH ELEVATED BP AND AMS THAT HAVE IMPROVE. HR IS NOTED TO BE IN THE 40S. PATIENT HAVE SLIGHT HEADACHE BUT DENIES CHEST PAIN. NO FEVER, COUGH OR CONGESTION. Complaint Cheif Complaint Doctors Comments: ELEVATED BP TIMES 2 DAYS. 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 Chief Complaint:: ACCORDING TO NURSE AT [facility] PT HAS HAD HIGH BP X 2 DAYS. TODAY NURSE STATES THAT PT "JUST WASN'T ACTING HIMSELF AND SEEMED TO BE MORE CONFUSED THAN USUAL. " PT IS ALERT COVID-19 Coronavirus risk:travel/contact w/high risk person: No Has patient experienced Coronavirus symptoms: No Reviewed Nurses Notes Reviewed: Yes Source History Provided: Patient and Law Enforcement Mode of Arrival Mode of Arrival: Ambulatory Timing Onset of Chief Complaint: 08/11/19 Came On: Suddenly Symptoms: Improving Symptom Onset: Unknown Duration Duration: Intermittent Duration: Days Quality Quality: Decreased Alertness Context Recent: None History Of: None Associated Signs and Symptoms Associated Signs and Symptoms: Headache and Other (DECREASE ALERTNESS.) PMH PMH Past Medical History: Yes Past Medical History: Anxiety, Arthritis, Coronary Artery Disease, Depression, Dyslipidemia, GERD and Hypertension Past Surgical History: Yes Surgical History: Cholecystectomy and Ortho Surgery Family History History of Family Medical Conditions: Yes Family Medical History: Diabetes Mellitus, Coronary Artery Disease and Hypertension Social History Have you used tobacco products in the last 12 months: No Type of Tobacco Use: None Alcohol Use: None Do you use any recreational Drugs:: No Lives With: Other Lives Where: [facility] Travel Risk Coronavirus risk:travel/contact w/high risk person: No Has patient experienced Coronavirus symptoms: No Infectious screening In the last 2 months have you had wt loss of >10#?: NO Have you had fever, night sweats or hemotysis?: No Have you traveled outside the country in the last 6 months?: No Isolation: Standard ROS Review of Systems Constitutional: See HPI, Weakness and Fatigue; negative Fever Eyes: No Symptoms Reported and See HPI; negative Blurred Vision and Diplopia ENTM: No Symptoms Reported and See HPI; negative Ear Pain, Nose Discharge, Nose Congestion and Throat Pain Respiratoy: No Symptoms Reported and See HPI; negative Moist Cough, Short of Breath and Wheezing Cardiovascular: No Symptoms Reported and See HPI; negative Chest Pain, Edema and Palpitations Gastrointestinal/Abdominal: No Symptoms Reported and See HPI; negative Abdominal Pain, Diarrhea, Nausea and Vomiting Genitourinary: No Symptoms Reported and See HPI; negative Dysuria, Frequency and Hematuria Neurological: No Symptoms Reported, See HPI, Headache and Weakness; negative Dizziness Musculoskeletal: No Symptoms Reported and See HPI; negative Back Pain and Muscle Pain Integumentary: No Symptoms Reported and See HPI; negative Change in Color, Rash and Juandice Hematologic/Lymphatic: No Symptoms Reported and See HPI; negative Easy Bruising and Swollen Glands Endocrine: No Symptoms Reported and See HPI; negative Increased Thirst, Increased Urine and Decreased Appetite Psychiatric: No Symptoms Reported and See HPI All Other Systems: Reviewed and Negative PE Vitals Vital Signs: Temp Pulse Resp BP BP BP Pulse Ox 08/11/19 22:30 53 L 19 164/80 97 08/11/19 22:21 50 L 18 164/80 98 08/11/19 22:15 50 L 18 95 08/11/19 22:00 47 L 17 188/99 98 08/11/19 21:53 185/88 08/11/19 21:45 44 L 20 192/93 97 08/11/19 21:41 46 L 21 192/93 97 08/11/19 21:33 47 L 18 96 08/11/19 21:28 51 L 18 180/95 97 08/11/19 21:21 50 L 19 180/95 98 08/11/19 21:15 53 L 20 98 08/11/19 21:01 49 L 18 192/79 08/11/19 21:00 48 L 20 08/11/19 20:45 48 L 19 08/11/19 20:41 50 L 20 179/82 08/11/19 20:30 60 42 H 08/11/19 20:21 51 L 20 205/87 08/11/19 20:15 53 L 19 08/11/19 20:01 52 L 19 177/82 08/11/19 20:00 52 L 20 08/11/19 19:45 66 08/11/19 19:41 52 L 19 202/90 08/11/19 19:30 59 L 22 08/11/19 19:21 63 167/96 08/11/19 19:15 51 L 19 08/11/19 19:00 54 L 19 178/91 08/11/19 18:45 53 L 18 08/11/19 18:40 54 L 20 190/134 08/11/19 18:30 54 L 19 96 08/11/19 18:21 54 L 19 186/91 96 08/11/19 18:15 54 L 19 96 08/11/19 18:01 51 L 19 198/91 96 08/11/19 18:00 53 L 19 96 08/11/19 17:45 47 L 18 98 08/11/19 17:41 48 L 17 175/86 98 08/11/19 17:30 48 L 19 99 08/11/19 17:19 50 L 18 161/84 97 08/11/19 17:15 49 L 17 97 08/11/19 17:00 49 L 18 98 08/11/19 16:50 48 L 17 98 08/11/19 16:30 52 L 17 98 08/11/19 16:20 58 L 24 179/87 97 08/11/19 16:15 47 L 22 98 08/11/19 16:14 53 L 20 196/91 99 08/11/19 16:10 48 L 18 98 08/11/19 16:06 98.4 F 48 L 18 200/93 99 09/29/17 17:43 119/62 119/62 09/29/17 17:00 194/96 General Limitations: No Limitations General Appearance: Alert Head Head Exam: Normal Inspection and Atraumatic Head Exam Physical: Other (NONE NOTED.) Eyes Eye exam: Normal Appearance, PERRL and EOMI; negative Scleral Icterus and Conjunctival Injection Pupils: Regular, Round: Bilateral and Reactive: Bilateral ENT ENT Exam: Normal Exam, Normal Oropharynx, Normal External Ear Exam and TM's Normal Bilaterally External Ear Exam: Normal External Inspection; negative Mastoid Tenderness TM/Canal Exam: Bilateral: Normal Nose Exam: Normal Nose Exam; negative Sinus Tenderness, Nasal Deviation and Septal Hematoma Mouth Exam: Normal Inspection; negative Lip Swelling and Tongue Swelling Throat Exam: Normal Inspection; negative Tonsillar Erythema, Tonsillomegaly and Tonsillar Exudate Neck Neck Exam: Normal Inspection and Trachea Midline; negative Tenderness and Lymphadenopathy Chest Chest Inspection: Normal Inspection; negative Symmetric Chest Wall Rise and Tenderness Respiratory Respiratory Exam: Normal Lung Sounds Bilat; negative Accessory Muscle Use, Chest Wall Tenderness and Respiratory Distress Respiratory Exam: Bilateral: Clear to Auscultation Cardiovascular Cardiovascular Exam: Regular Rate, Normal Rhythm and Normal Heart Sounds; negative Systolic Murmur and Diastolic Murmur Abdominal Exam Abdominal Exam: Normal Inspection, Normal Bowel Sounds and Soft; negative Tenderness Extremities Extremities Exam: Normal Inspection; negative Edema Back Back Exam: Normal Inspection; negative (R) CVA Tenderness and (L) CVA Tenderness Neurological Neurological Exam: Alert, Oriented X3 and CN II-XII Intact Patient Oriented To: Person, Place and Time Cranial Nerve Exam: EOM Function (II, III, IV, ): Normal, Facial Sensation (V): Normal, Facial Palsy (VII): Normal, Gag reflex (XI): Normal, Spinal Accessory Function (XI): Normal and Tongue Deviation: Normal Motor Strength - LUE: 5/5 Motor Strength - RUE: 5/5 Motor Strength - LLE: 5/5 Motor Strength - RLE: 5/5 Upper Motor Neuron Exam: Babinski Sign: Normal Psychological Psychiatric Exam: Normal Affect and Normal Mood Skin Skin Exam: Warm, Dry, Intact and Normal Color MDM Differential Diagnosis Metabolic: Dehydration, Hypercalcemia, Hypernatremia, Hypoglycemia and Hyponatremia Structural: CVA and Mass Lesion Infectious: UTI COURSE Treatment Treatment: SEE ORDERS. CLONIDINE 1.2MG PO. Reevaluation 1st: Improved (BP SLIGHTLY DECREASE BUT STILL HIGH.) Consultation Consultation Comments: DISCUSSED PATIENT WITH DR. FERRIS. SHE WILL ADMIT PATIENT. Education/Counseling Education/Counseling: Patient Educated On: Diagnosis ROR Labs Reviewed Laboratory Results Reviewed?: Yes Result Diagrams: 08/13/19 05:17 08/13/19 08:54 Laboratory: WBC 8.7 X10^3/uL (3.6-10.0) 08/11/19 17:14 RBC 5.48 X10^6/uL (4.7-6.0) 08/11/19 17:14 Hgb 16.9 g/dL (13.5-18.0) 08/11/19 17:14 Hct 48.8 % (42.0-54.0) 08/11/19 17:14 MCV 89.1 fL (80.0-100.0) 08/11/19 17:14 MCH 30.8 pg (27.0-34.0) 08/11/19 17:14 MCHC 34.6 g/dL (33.0-35.0) 08/11/19 17:14 RDW 13.7 % (11.6-16.5) 08/11/19 17:14 Plt Count 319 X10^3/uL (150.0-450.0) 08/11/19 17:14 MPV 7.8 fL (7.4-11.0) 08/11/19 17:14 Neut % (Auto) 58.9 % (42.0-75.0) 08/11/19 17:14 Lymph % (Auto) 26.7 % (21.0-51.0) 08/11/19 17:14 [place] % (Auto) 13.5 % (0.0-13.0) H 08/11/19 17:14 Eos % (Auto) 0.5 % (0.9-2.9) L 08/11/19 17:14 Baso % (Auto) 0.4 % (0.2-1.0) 08/11/19 17:14 Neut # (Auto) 5.1 x10^3/uL (2.2-4.8) H 08/11/19 17:14 Lymph # (Auto) 2.3 X10^3/uL (1.3-2.9) 08/11/19 17:14 [place] # (Auto) 1.2 x10^3/uL (0.3-0.8) H 08/11/19 17:14 Eos # (Auto) 0.0 x10^3/uL (0.0-0.2) 08/11/19 17:14 Baso # (Auto) 0.0 X10^3/uL (0.0-0.1) 08/11/19 17:14 Absolute Nucleated RBC 0.1 /100WBC 08/11/19 17:14 Sodium 143 mmol/L (136-145) 08/11/19 17:14 Corrected Sodium TNP 08/11/19 17:14 Potassium 2.2 mmol/L (3.5-5.1) L* 08/11/19 17:14 Chloride 101 mmol/L (98-107) 08/11/19 17:14 Carbon Dioxide 37.0 mmol/L (21-32) H 08/11/19 17:14 BUN 22 mg/dL (7-18) H 08/11/19 17:14 Creatinine 1.33 mg/dL (0.70-1.30) H 08/11/19 17:14 Est GFR (MDRD) Af Amer > 60 (>60) 08/11/19 17:14 Est GFR (MDRD) Non-Af 58 (>60) L 08/11/19 17:14 Glucose 109 mg/dL (65-99) H 08/11/19 17:14 Calcium 8.7 mg/dL (8.5-10.1) 08/11/19 17:14 Corrected Calcium TNP 08/11/19 17:14 Total Bilirubin 0.40 mg/dL (0.2-1.0) 08/11/19 17:14 AST 76 Units/L (15-37) H 08/11/19 17:14 ALT 83 Units/L (12-78) H 08/11/19 17:14 Alkaline Phosphatase 78 Units/L (46-116) 08/11/19 17:14 Creatine Kinase 250 Units/L (39-308) 08/11/19 19:30 CK-MB (CK-2) 2.5 ng/mL (0-4.0) 08/11/19 19:30 CK/CKMB % Calc 1.0 % (<4) 08/11/19 19:30 Troponin I 0.03 ng/mL (0-1.5) 08/11/19 19:30 Total Protein 7.9 g/dL (6.4-8.2) 08/11/19 17:14 Albumin 3.7 g/dL (3.4-5.0) 08/11/19 17:14 Globulin 4.2 g/dL (2.5-4.5) 08/11/19 17:14 Albumin/Globulin Ratio 0.9 Ratio (1.1-2.1) L 08/11/19 17:14 XRAY XRAY Interpreted by: Radiologist (REPORT NOTED AND DISCUSSED WITH PATIENT.) and Self (NO ACUTE FINDINGS.) EKG Rate: 45 [place]: Normal Rhythm: SB and PVCs Block: None and IVCD Hypertrophy: LAE and LVH ST: Old, Inf, Infarct and Nonsp Opioid Opioid Risk Tool Age (Deejay box if 16-45): No History of Preadolescent Sexual Abuse: No Total: 0 Total Score Risk Category: Low Risk Copyright: Cabrera BARILLAS predicting aberrant behaviors Diagnosis Discharge Problem: Accelerated hypertension, Bradycardia, sinus, Hip pain, right
--- NOTE | 2019-08-11 17:00 | CT ---
HISTORYAMSSTUDYCT of the brain without contrastCOMPARISONNoneNoncontrast CT of the brain is performed in the axial plane and reconstructed with multiplanar sequences.Radiation dose reduction was achieved through individualized adjustment of kVP and/or mA, through adaptive statistical iterative reconstruction, and/or through automated tube current modulation.FINDINGSAge related cortical volume loss is observed. There is commensurate dilation of the lateral ventricles. [id number] chronic microangiopathic ischemic white matter changes of the supratentorial brain are observed. There is a chronic lacunar infarct associated with the right caudate head, contiguous with subjacent hypoattenuation of the right chandler radiata. This is consistent with chronic small-vessel ischemic event. There is no evidence of an acute intracranial hemorrhage or extra-axial fluid collection. There is no mass effect, shift or cerebral edema. Atherosclerotic calcifications are associated with the cavernous ICA segments. There is no acute stage, large artery territorial infarct.The imaged paranasal sinuses and mastoids are clear. The calvarium is intact.IMPRESSIONNo acute intracranial abnormalities. Chronic age related involutional changes and microangiopathic ischemic changes as discussed aboveElectronically signed by: SURAJ LIU (August 11, 2019 16:59:07)
[2019-08-11 17:26] LABS: BASOPHILS % (AUTO) 0.4 % (0.2-1.0); EOSINOPHILS % (AUTO) 0.5 % (0.9-2.9); HEMATOCRIT 48.8 % (42.0-54.0); HEMOGLOBIN 16.9 g/dL (13.5-18.0); LYMPHOCYTES # (AUTO) 2.3 X10^3/uL (1.3-2.9); LYMPHOCYTES % (AUTO) 26.7 % (21.0-51.0); MEAN CORPUSCULAR HEMOGLOBIN 30.8 pg (27.0-34.0); MEAN CORPUSCULAR HGB CONC 34.6 g/dL (33.0-35.0); MEAN CORPUSCULAR VOLUME 89.1 fL (80.0-100.0); MEAN PLATELET VOLUME 7.8 fL (7.4-11.0); MONOCYTES # (AUTO) 1.2 x10^3/uL (0.3-0.8); MONOCYTES % (AUTO) 13.5 % (0.0-13.0); NEUTROPHILS # (AUTO) 5.1 x10^3/uL (2.2-4.8); NEUTROPHILS % (AUTO) 58.9 % (42.0-75.0); PLATELET COUNT 319 X10^3/uL (150.0-450.0); RED BLOOD COUNT 5.48 X10^6/uL (4.7-6.0); RED CELL DISTRIBUTION WIDTH 13.7 % (11.6-16.5); WHITE BLOOD COUNT 8.7 X10^3/uL (3.6-10.0)
--- NOTE | 2019-08-11 17:34 | RAD ---
HISTORYAMSSTUDYCHEST, [address] of the chestTECHNIQUEPortable chest x-rayFINDINGSHeart size is mildly increased with accentuation of the left heart border, and mediastinal contours are normal. Lungs are clear as are the pleural spaces. No free air or pneumothorax. No acute bony abonormality. A skin fold overlies the right chest wall. Sub cm nodular opacity projecting over the right lower lung field likely represents a nipple shadow. This may be confirmed with nipple markers if warranted.IMPRESSIONMild cardiomegaly with accentuation of the left heart border. Otherwise no acute radiographic abnormalities of the chest.Electronically signed by: SURAJ LIU (August 11, 2019 17:33:38)
[2019-08-11 17:47] LABS: ALANINE AMINOTRANSFERASE 83 Units/L (12-78); ALBUMIN 3.7 g/dL (3.4-5.0); ALKALINE PHOSPHATASE 78 Units/L (46-116); ASPARTATE AMINO TRANSFERASE 76 Units/L (15-37); BLOOD UREA NITROGEN 22 mg/dL (7-18); CALCIUM 8.7 mg/dL (8.5-10.1); CHLORIDE 101 mmol/L (98-107); CKMB % 1.1 % (<4); CREATINE KINASE 258 Units/L (39-308); CREATINE KINASE MB 2.8 ng/mL (0-4.0); CREATININE 1.33 mg/dL (0.70-1.30); SODIUM 143 mmol/L (136-145); TOTAL PROTEIN 7.9 g/dL (6.4-8.2); TROPONIN I 0.03 ng/mL (0-1.5); eGFR NON BLACK RACES 58 (>60)
[2019-08-11] MEDS ORDERED: KLOR-CON ONE (17:53)
--- NOTE | 2019-08-11 17:57 | RAD ---
HISTORYright hip pain htn, cad, ortho, gbSTUDYHIP-RIGHTCOMPARISONNoneFINDINGSThere is mild joint space narrowing both hips. No fracture or d islocation is seen. The pelvis is intact. The bones are well mineralized.IMPRESSIONMild joint space n arrowing in both hips with no acute bony abnormality.Electronically signed by: BARRNIGTON RAY (August 11, 2019 17:56:17)
[2019-08-11] MEDS ORDERED: KLOR-CON PO SCH (18:00)
[2019-08-11] MEDS ORDERED: ZESTRIL TAB 20 MG PO ONE (18:56)
[2019-08-11] MEDS ORDERED: ZESTRIL TAB 20 MG ONE (19:13)
[2019-08-11 19:55] LABS: CREATINE KINASE MB 2.5 ng/mL (0-4.0); TROPONIN I 0.03 ng/mL (0-1.5)
[2019-08-11] MEDS ORDERED: CATAPRES TAB 0.1 MG PO ONE (20:48)
[2019-08-11] MEDS ORDERED: CATAPRES TAB 0.1 MG ONE (20:51)
[2019-08-11] MEDS ORDERED: NS 1000 ML 1,000 ML IV SCH (23:00)
[2019-08-11] MEDS ORDERED: NS 1000 ML 1,000 ML ONE (23:15)
[2019-08-11] MEDS ORDERED: MICRO K EXTEN CAP 10 MEQ PO PRN (23:35)
[2019-08-11] MEDS ORDERED: K-RIDER 10 MEQ/NS 100 ML 10 MEQ/100 ML BAG IV PRN (23:35)
[2019-08-11] MEDS ORDERED: POTASSIUM CHLORIDE LIQ 20 MEQ UDC PO PRN (23:35)
[2019-08-11] MEDS ORDERED: POTASSIUM CHL 40 MEQ/NS 0.45% 500 ML IV PRN (23:35)
[2019-08-11] MEDS ORDERED: MAGNESIUM SULFATE 1 GRAM/100 mL PREMIX 1 GM/100 ML BAG IV PRN (23:35)
[2019-08-11] MEDS ORDERED: POTASSIUM CHL 60 MEQ/NS 0.45% 500 ML IV PRN (23:35)
[2019-08-11 23:36] LABS: CKMB % 1.1 % (<4); CREATINE KINASE MB 2.7 ng/mL (0-4.0); TROPONIN I 0.03 ng/mL (0-1.5)
[2019-08-11 23:49] LABS: MAGNESIUM 2.2 mg/dL (1.7-2.9)
[2019-08-12] MEDS: KLOR-CON PO PRN (00:14)
[2019-08-12 01:01] VITALS: BMI 24.4
[2019-08-12 06:06] LABS: BASOPHILS % (AUTO) 0.3 % (0.2-1.0); EOSINOPHILS # (AUTO) 0.1 x10^3/uL (0.0-0.2); EOSINOPHILS % (AUTO) 0.7 % (0.9-2.9); HEMATOCRIT 46.9 % (42.0-54.0); HEMOGLOBIN 16.3 g/dL (13.5-18.0); LYMPHOCYTES # (AUTO) 2.4 X10^3/uL (1.3-2.9); LYMPHOCYTES % (AUTO) 28.2 % (21.0-51.0); MEAN CORPUSCULAR HEMOGLOBIN 30.7 pg (27.0-34.0); MEAN CORPUSCULAR HGB CONC 34.7 g/dL (33.0-35.0); MEAN CORPUSCULAR VOLUME 88.5 fL (80.0-100.0); MEAN PLATELET VOLUME 7.6 fL (7.4-11.0); MONOCYTES # (AUTO) 1.1 x10^3/uL (0.3-0.8); MONOCYTES % (AUTO) 12.3 % (0.0-13.0); NEUTROPHILS % (AUTO) 58.5 % (42.0-75.0); PLATELET COUNT 304 X10^3/uL (150.0-450.0); RED CELL DISTRIBUTION WIDTH 13.9 % (11.6-16.5); WHITE BLOOD COUNT 8.5 X10^3/uL (3.6-10.0)
[2019-08-12 06:16] LABS: ALANINE AMINOTRANSFERASE 68 Units/L (12-78); ALBUMIN 3.5 g/dL (3.4-5.0); ALKALINE PHOSPHATASE 61 Units/L (46-116); ASPARTATE AMINO TRANSFERASE 54 Units/L (15-37); BLOOD UREA NITROGEN 21 mg/dL (7-18); CALCIUM 8.5 mg/dL (8.5-10.1); CARBON DIOXIDE 37.1 mmol/L (21-32); CHLORIDE 102 mmol/L (98-107); CKMB % 1.2 % (<4); CREATINE KINASE 170 Units/L (39-308); CREATINE KINASE MB 2.1 ng/mL (0-4.0); CREATININE 1.16 mg/dL (0.70-1.30); SODIUM 145 mmol/L (136-145); TOTAL PROTEIN 7.5 g/dL (6.4-8.2); TROPONIN I 0.03 ng/mL (0-1.5); eGFR NON BLACK RACES > 60 (>60)
[2019-08-12 06:25] LABS: BILIRUBIN,URINE NEGATIVE (NEGATIVE); BLOOD/HEMOGLOBIN,URINE NEGATIVE (NEGATIVE); GLUCOSE, URINE NEGATIVE (NEGATIVE); KETONES,URINE NEGATIVE (NEGATIVE); LEUKOCYTE ESTERASE ,URINE NEGATIVE (NEGATIVE); NITRITES,URINE NEGATIVE (NEGATIVE); PROTEIN,URINE 2+ (NEGATIVE); UROBILINOGEN,URINE 1+ (NORMAL)
[2019-08-12 06:27] LABS: APPEARANCE,URINE HAZY (CLEAR); COLOR,URINE YELLOW (YELLOW)
[2019-08-12 06:28] LABS: AMORPHOUS SEDIMENT,UR 2+ /HPF (NEGATIVE); BACTERIA,URINE TRACE /HPF (NEGATIVE); RBC,URINE 0-2 /HPF (0-3); SQUAMOUS EPITHELIAL CELL,UR RARE /HPF (NEGATIVE)
[2019-08-12] MEDS ORDERED: K-RIDER 10 MEQ/NS 100 ML 10 MEQ/100 ML BAG IV ONE (06:30)
[2019-08-12] MEDS: K-RIDER 10 MEQ/NS 100 ML 10 MEQ/100 ML BAG IV PRN ×2 (06:43→08:20)
[2019-08-12] MEDS: NORVASC TAB 5 MG PO SCH (08:19)
[2019-08-12] MEDS: ZESTRIL TAB 40 MG PO SCH (08:19)
[2019-08-12] MEDS: NS + KCL 40 MEQ/L 1,000 ML IV SCH ×3 (14:55→22:44)
--- NOTE | 2019-08-12 22:06 | DR.H&P ---
H&P - History & Physical for Day of: H&P Date: 08/11/19 - Chief Complaint Chief Complaint: HIGH BLOOD PRESSURE, AMS, HEADACHE, BILATERAL HIP PAIN - History of Present Illness History of Present Illness: IS A 63 YEAR OLD PATIENT OF OURS. HE WAS BROUGHT TO THE EMERGENCY ROOM FROM [facility]. ACCORDING TO NURSE AT THE ASSISTED, PATIENT HAS HAD INCREASED BLOOD PRESSURE FOR THE PAST TWO DAYS. SHE REPORTED THAT PATIENT WAS CONFUSED AND WASNT ACTING HIMSELF. PATIENT REPORTS THAT HE WAS TAKING BYSTOLIC 10MG PO DAILY, NORVASC 5MG PO DAILY, AND CLONIDINE 0.2MG PO HS, HOWEVER, THE ASSISTED HAD NOT BEEN GIVING HIM THE BYSTOLIC. HE DENIES CHEST PAIN FEVER, COUGH, OR CONGESTION, BUT DOES REPORT A MILD HEADACHE AND BILATERAL HIP PAIN. HIP PAIN IS CHRONIC. PAIN IS RATED 4/10. HE IS NOTED TO HAVE DECREASED ALERTNESS. PMH INCLUDES ANXIETY, ARTHRITIS, CAD, DEPRESSION, DYSLIPIDEMIA, GERD, HTN, DRUG ABUSE, AND CHOLECYSTECTOMY. ON ARRIVAL TO THE ER, VITALS WERE 98.4-48-18-99%-200/93. LABS WERE OBTAINED. ABNORMAL LAB VALUES INCLUDE THE FOLLOWING: POTASSIUM 2.2, CARBON DIOXIDE 37.0, BUN 22, CREATININE 1.33, GLUCOSE 109, AST 76, ALT 83. CARDIAC ENZYMES ARE WITHIN NORMAL LIMITS. A URINALYSIS WAS OBTAINED AND REVEALED: WBC 0-2, RBC 0-2, LEUKOCYTES NEGATIVE, BACTERIA TRACE, PROTEIN 2+. AN EKG WAS OBTAINED AND REVEALED: SINUS BRADYCARDIA WITH HR 47. A CHEST XRAY WAS OBTAINED AND REVEALED: Mild cardiomegaly with accentuation of the left heart border. Otherwise no acute radiographic abnormalities of the chest. BILATERAL HIP XRAY OBTAINED AND REVEALED: Mild joint space narrowing in both hips with no acute bony abnormality. A BRAIN CT WAS OBTAINED AND REVEALED: No acute intracranial abnormalities. Chronic age related involutional changes and microangiopathic ischemic changes. HE WAS GIVEN CATAPRES 0.2MG PO X 1 AND POTASSIUM 40MEQ PO X 1 IN THE ER. BLOOD PRESSURE DECREASED TO 161/84, BUT EVENTUALLY STARTED TO RISE AGAIN. HE WAS THEN GIVEN LISINOPRIL 20MG PO X 1 AND THEN CATAPRES 0.1MG PO X 1. BLOOD PRESSURE DECREASED TO 150/83. HE WAS ADMITTED TO THE HOSPITAL FOR FURTHER EVALUATION AND TREATMENT OF HYPOKALEMIA, ACCELERATED HTN, AMS, AND BRADYCARDIA. HE WAS STARTED ON NS AT 40MEQ KCL AT 150 ML/HR, NORVASC 5MG PO DAILY, ZESTRIL 40MG PO DAILY, AND THE POTASSIUM PROTOCOL. WE WILL REPEAT HIS POTASSIUM AT 1300 AND MAKE ADJUSTMENTS ACCORDINGLY. OTHERWISE, WE WILL FOLLOW UP WITH AM LABS AND CONTINUE TO MONITOR. - Past Medical History Past Medical History: Coronary Artery Disease, Hypertension, Dyslipidemia, Depression, Anxiety, GERD, Arthritis Additional Medical History: Muscle Weakness, Chronic Neck and Back pain, PANCREATITIS - Past Surgical History Surgical History: Cholecystectomy, Ortho Surgery - Family History Family Medical History: Diabetes Mellitus, Coronary Artery Disease, Hypertension - Social History Have you used tobacco products in the last 12 months: No Type of Tobacco Use: None Alcohol Use: None Drug Use: Prescription Drugs - Medications Home Medications: No Known Drug Allergies Allergy (Verified 09/29/17 12:43) CONTINUE taking the following medications nebivolol [Bystolic] 10 mg PO DAILY 08/11/19 [History] zolpidem [Ambien] 10 mg PO HS 08/11/19 [History] esomeprazole magnesium 40 mg PO DAILY 08/12/19 [History] gabapentin 600 mg PO BID 08/12/19 [History] hydrocodone-acetaminophen 1 tab PO Q6H PRN 08/12/19 [History] ibuprofen 800 mg PO TID 08/12/19 [History] naproxen 500 mg PO BID 08/12/19 [History] oxycodone-acetaminophen 1 tab PO BID 08/12/19 [History] tadalafil 5 mg PO DIRECTED PRN 08/12/19 [History] - Review of Systems Constitutional: See HPI Eyes: No Symptoms Reported ENT: No Symptoms Reported Respiratory: No Symptoms Reported Cardiovascular: No Symptoms Reported Gastrointestinal: No Symptoms Reported Genitourinary: No Symptoms Reported Musculoskeletal: See HPI, Other (BILATERAL HIP PAIN ) Skin: No Symptoms Reported Neurological: See HPI, Confusion, Other (HEADACHE ) - Physical Exam Vital Signs: Temperature 97.6 F Pulse Rate [Right Brachial] 59 Pulse Rate [Brachial] 62 Pulse Rate 50 Respiratory Rate 18 Blood Pressure [Left Arm] 177/76 Blood Pressure [Right Arm] 180/100 Blood Pressure 150/83 O2 Sat by Pulse Oximetry 99 Oriented: Normal Eyes: Normal Ear: Normal Nose: Normal Throat: Normal Respiratory: Diminished Throughout Cardiovascular: Bradycardia. negative: S3, S4, Murmur : Normal Auscultation: Bowel Sounds: Normal Palpation: Normal Tenderness: Normal Skin: Normal Musculoskeletal: Right, Left, Hip, Tender Psychiatric: Other (DECREASED ALERTNESS ) Mood Description: Calm Affect: Normal Speech Pattern: Clear - Assessment/Plan (1) Hypokalemia Status: Acute Plan: ADMIT, NS AT 40MEQ KCL AT 150 ML/HR, NORVASC 5MG PO DAILY, ZESTRIL 40MG PO DAILY, AND THE POTASSIUM PROTOCOL (2) Accelerated hypertension Status: Acute (3) Bradycardia, sinus Status: Acute Plan: DISCONTINUE BYSTOLIC - Allergies Allergies/Adverse Reactions: Allergies Allergy/AdvReac Type Severity Reaction Status Date / Time No Known Drug Allergies Allergy Verified 09/29/17 12:43
[2019-08-13] MEDS: NS + KCL 40 MEQ/L 1,000 ML IV SCH ×4 (02:35→19:07)
[2019-08-13 06:14] LABS: BASOPHILS % (AUTO) 0.3 % (0.2-1.0); EOSINOPHILS % (AUTO) 0.6 % (0.9-2.9); HEMATOCRIT 47.6 % (42.0-54.0); HEMOGLOBIN 16.4 g/dL (13.5-18.0); LYMPHOCYTES # (AUTO) 2.1 X10^3/uL (1.3-2.9); LYMPHOCYTES % (AUTO) 26.9 % (21.0-51.0); MEAN CORPUSCULAR HEMOGLOBIN 30.8 pg (27.0-34.0); MEAN CORPUSCULAR HGB CONC 34.4 g/dL (33.0-35.0); MEAN CORPUSCULAR VOLUME 89.6 fL (80.0-100.0); MONOCYTES # (AUTO) 0.9 x10^3/uL (0.3-0.8); NEUTROPHILS # (AUTO) 4.9 x10^3/uL (2.2-4.8); NEUTROPHILS % (AUTO) 61.2 % (42.0-75.0); PLATELET COUNT 287 X10^3/uL (150.0-450.0); RED BLOOD COUNT 5.31 X10^6/uL (4.7-6.0); RED CELL DISTRIBUTION WIDTH 13.9 % (11.6-16.5)
[2019-08-13 06:19] LABS: ALANINE AMINOTRANSFERASE 57 Units/L (12-78); ALBUMIN 3.4 g/dL (3.4-5.0); ALKALINE PHOSPHATASE 71 Units/L (46-116); ASPARTATE AMINO TRANSFERASE 40 Units/L (15-37); BLOOD UREA NITROGEN 15 mg/dL (7-18); CALCIUM 8.2 mg/dL (8.5-10.1); CARBON DIOXIDE 28.4 mmol/L (21-32); CHLORIDE 106 mmol/L (98-107); MAGNESIUM 1.7 mg/dL (1.7-2.9); SODIUM 144 mmol/L (136-145); TOTAL PROTEIN 7.5 g/dL (6.4-8.2); eGFR NON BLACK RACES > 60 (>60)
[2019-08-13] MEDS: KLOR-CON PO PRN ×2 (06:28→14:07)
[2019-08-13] MEDS: ZESTRIL TAB 40 MG PO SCH (09:13)
[2019-08-13] MEDS: NORVASC TAB 5 MG PO SCH (09:13)
[2019-08-13] MEDS: MAGNESIUM SULFATE 1 GRAM/100 mL PREMIX 1 GM/100 ML BAG IV PRN ×2 (09:13→10:22)
[2019-08-13] MEDS: LOPRESSOR TAB 25 MG PO SCH ×2 (10:21→20:15)
[2019-08-13] MEDS: KLONOPIN TAB 0.5 MG PO PRN (10:21)
[2019-08-13] MEDS: K-DUR TAB 20 MEQ PO PRN (20:15)
[2019-08-14] MEDS: KLONOPIN TAB 0.5 MG PO PRN (01:46)
[2019-08-14] MEDS: NS + KCL 40 MEQ/L 1,000 ML IV SCH ×4 (03:04→20:47)
[2019-08-14 06:12] LABS: ALANINE AMINOTRANSFERASE 58 Units/L (12-78); ALBUMIN 3.4 g/dL (3.4-5.0); ALKALINE PHOSPHATASE 67 Units/L (46-116); ASPARTATE AMINO TRANSFERASE 35 Units/L (15-37); BLOOD UREA NITROGEN 12 mg/dL (7-18); CALCIUM 8.1 mg/dL (8.5-10.1); CARBON DIOXIDE 26.5 mmol/L (21-32); CHLORIDE 107 mmol/L (98-107); MAGNESIUM 1.8 mg/dL (1.7-2.9); SODIUM 142 mmol/L (136-145); TOTAL PROTEIN 7.6 g/dL (6.4-8.2); eGFR NON BLACK RACES > 60 (>60)
[2019-08-14 06:16] LABS: BASOPHILS % (AUTO) 0.3 % (0.2-1.0); EOSINOPHILS # (AUTO) 0.1 x10^3/uL (0.0-0.2); EOSINOPHILS % (AUTO) 0.9 % (0.9-2.9); HEMATOCRIT 46.8 % (42.0-54.0); LYMPHOCYTES # (AUTO) 2.7 X10^3/uL (1.3-2.9); LYMPHOCYTES % (AUTO) 28.3 % (21.0-51.0); MEAN CORPUSCULAR HEMOGLOBIN 30.6 pg (27.0-34.0); MEAN CORPUSCULAR HGB CONC 34.2 g/dL (33.0-35.0); MEAN CORPUSCULAR VOLUME 89.3 fL (80.0-100.0); MEAN PLATELET VOLUME 8.1 fL (7.4-11.0); MONOCYTES # (AUTO) 0.9 x10^3/uL (0.3-0.8); MONOCYTES % (AUTO) 9.8 % (0.0-13.0); NEUTROPHILS # (AUTO) 5.8 x10^3/uL (2.2-4.8); NEUTROPHILS % (AUTO) 60.7 % (42.0-75.0); PLATELET COUNT 277 X10^3/uL (150.0-450.0); RED BLOOD COUNT 5.24 X10^6/uL (4.7-6.0); RED CELL DISTRIBUTION WIDTH 14.1 % (11.6-16.5); WHITE BLOOD COUNT 9.6 X10^3/uL (3.6-10.0)
[2019-08-14] MEDS: MAGNESIUM SULFATE 1 GRAM/100 mL PREMIX 1 GM/100 ML BAG IV PRN (06:36)
[2019-08-14] MEDS: K-DUR TAB 20 MEQ PO PRN ×2 (06:47→15:47)
[2019-08-14] MEDS: NORVASC TAB 5 MG PO SCH (09:19)
[2019-08-14] MEDS: LOPRESSOR TAB 25 MG PO SCH ×2 (09:19→20:48)
[2019-08-14] MEDS: ZESTRIL TAB 40 MG PO SCH (09:19)
[2019-08-14] MEDS ORDERED: HALDOL INJ IM PRN (09:58)
--- NOTE | 2019-08-14 10:28 | PCM.PROG ---
Progress Note - Progress Note for Day of Date of Exam: 08/13/19 - Subjective Subjective: IS BEING TREATED FOR HYPOKALEMIA, ACCELERATED HTN, AND BRADYCARDIA. TODAY, HE IS LYING IN BED WITH EYES CLOSED ON MORNING ROUNDS. HE AWAKENS EASILY TO VERBAL STIMULI. HE REPORTS WEAKNESS, BUT DENIES PAIN ON MORNING ROUNDS. STAFF REPORTS THAT HE HAS BEEN AGITATED AT TIMES THROUGHOUT THE NIGHT AND HAS ALSO HAD DIARRHEA. PATIENT DOES HAVE A HISTORY OF SUBSTANCE ABUSE. HE IS CURRENTLY IN CUSTODY OF THE LOCAL [facility]. HE WAS PLACED IN CUSTODY LESS THAN A WEEK AGO. STAFF EXPRESSES CONCERNS THAT HE MAY BE HAVING WITHDRAWS. ON EXAMINATION, HEART IS REGULAR IN RATE AND RHYTHM. BILATERAL LUNGS ARE NOTED WITH DIMINISHED LUNG SOUNDS THROUGHOUT. ABDOMEN IS ROUND, SOFT, AND NON-TENDER WITH N ORMAL BOWEL SOUNDS NOTED IN ALL QUADRANTS. HIS VITALS THIS MORNING ARE: 97.9-68-22-98%-195/95. LABS WERE OBTAINED. ABNORMAL LAB VALUES INCLUDE THE FOLLOWING: POTASSIUM 2.6, CALCIUM 8.2, AST 40. HE HAS RECEIVED SEVERAL DOSES OF POTASSIUM AND HE IS RECEIVING POTASSIUM IN HIS IV FLUIDS, HOWEVER, POTASSIUM REMAINS LOW. HIS MAGNESIUM IS ALSO SLIGHTLY LOW TODAY, AT 1.7. HIS BLOOD PRESSURE HAS REMAINED ELEVATED THROGHOUT THE NIGHT. HIS HEART RATE HAS INCREASED TO THE 60s. HE IS CURRENTLY RECEIVING NS AT 40MEQ KCL AT 150 ML/HR, NORVASC 5MG PO DAILY, ZESTRIL 40MG PO DAILY, AND THE POTASSIUM PROTOCOL. TODAY, WE WILL ADD LOPRESSOR 25MG PO BID AND KLONOPIN 0.5MG PO TID PRN FOR AGITATION. WE WILL RECHECK HIS POTASSIUM AT 1200 AND 1700 TODAY AND MAKE ADJUSTMENTS ACCORDINGLY. OTHERWISE, WE PLAN TO FOLLOW UP WITH AM LABS. - Past Medical Family Social History Past Med/Fam/Surg Hx: No changes since H&P Allergies: Allergies No Known Drug Allergies Allergy (Verified 09/29/17 12:43) - Review of Systems ROS: No change since H&P - Vital Signs and I&O's Vital Signs: Temperature 98.3 F Pulse Rate [Right Brachial] 68 Pulse Rate [Brachial] 62 Pulse Rate 50 Respiratory Rate 20 Blood Pressure [Left Arm] 177/76 Blood Pressure [Right Arm] 209/109 Blood Pressure 150/83 O2 Sat by Pulse Oximetry 97 Intake and Output: Intake & Output 0508/12/19 08/13/19 08/14/19 11:59 11:59 11:59 11:59 Intake Total 600 / 600 4514 / 4514 4140 / 4140 Output Total 0 / 0 1050 / 1050 Balance 600 / 600 3464 / 3464 4140 / 4140 - Physical Exam Oriented: Normal Eyes: Normal Ear: Normal Nose: Normal Throat: Normal Respiratory: Generalized, Diminished Cardiovascular: Normal. negative: S3, S4, Murmur : Normal Auscultation: Bowel Sounds: Normal Palpation: Normal Tenderness: Normal Skin: Normal Musculoskeletal: Right, Left, Hip, Tender Psychiatric: Other (DECREASED ALERTNESS ) Mood Description: Calm Affect: Normal Speech Pattern: Clear, Delayed - Laboratory and Diagnostics Result Diagrams: 08/14/19 05:18 08/14/19 05:18 Labs: Laboratory WBC 9.6 X10^3/uL (3.6-10.0) 08/14/19 05:18 RBC 5.24 X10^6/uL (4.7-6.0) 08/14/19 05:18 Hgb 16.0 g/dL (13.5-18.0) 08/14/19 05:18 Hct 46.8 % (42.0-54.0) 08/14/19 05:18 MCV 89.3 fL (80.0-100.0) 08/14/19 05:18 MCH 30.6 pg (27.0-34.0) 08/14/19 05:18 MCHC 34.2 g/dL (33.0-35.0) 08/14/19 05:18 RDW 14.1 % (11.6-16.5) 08/14/19 05:18 Plt Count 277 X10^3/uL (150.0-450.0) 08/14/19 05:18 MPV 8.1 fL (7.4-11.0) 08/14/19 05:18 Neut % (Auto) 60.7 % (42.0-75.0) 08/14/19 05:18 Lymph % (Auto) 28.3 % (21.0-51.0) 08/14/19 05:18 [place] % (Auto) 9.8 % (0.0-13.0) 08/14/19 05:18 Eos % (Auto) 0.9 % (0.9-2.9) 08/14/19 05:18 Baso % (Auto) 0.3 % (0.2-1.0) 08/14/19 05:18 Neut # (Auto) 5.8 x10^3/uL (2.2-4.8) H 08/14/19 05:18 Lymph # (Auto) 2.7 X10^3/uL (1.3-2.9) 08/14/19 05:18 [place] # (Auto) 0.9 x10^3/uL (0.3-0.8) H 08/14/19 05:18 Eos # (Auto) 0.1 x10^3/uL (0.0-0.2) 08/14/19 05:18 Baso # (Auto) 0.0 X10^3/uL (0.0-0.1) 08/14/19 05:18 Absolute Nucleated RBC 0.1 /100WBC 08/14/19 05:18 Sodium 142 mmol/L (136-145) 08/14/19 05:18 Corrected Sodium TNP 08/14/19 05:18 Potassium 3.2 mmol/L (3.5-5.1) L 08/14/19 05:18 Chloride 107 mmol/L (98-107) 08/14/19 05:18 Carbon Dioxide 26.5 mmol/L (21-32) 08/14/19 05:18 BUN 12 mg/dL (7-18) 08/14/19 05:18 Creatinine 0.90 mg/dL (0.70-1.30) 08/14/19 05:18 Est GFR (MDRD) Af Amer > 60 (>60) 08/14/19 05:18 Est GFR (MDRD) Non-Af > 60 (>60) 08/14/19 05:18 Glucose 98 mg/dL (65-99) 08/14/19 05:18 Calcium 8.1 mg/dL (8.5-10.1) L 08/14/19 05:18 Corrected Calcium TNP 08/14/19 05:18 Magnesium 1.8 mg/dL (1.7-2.9) 08/14/19 05:18 Total Bilirubin 0.50 mg/dL (0.2-1.0) 08/14/19 05:18 AST 35 Units/L (15-37) 08/14/19 05:18 ALT 58 Units/L (12-78) 08/14/19 05:18 Alkaline Phosphatase 67 Units/L (46-116) 08/14/19 05:18 Creatine Kinase 170 Units/L (39-308) 08/12/19 04:46 CK-MB (CK-2) 2.1 ng/mL (0-4.0) 08/12/19 04:46 CK/CKMB % Calc 1.2 % (<4) 08/12/19 04:46 Troponin I 0.03 ng/mL (0-1.5) 08/12/19 04:46 Total Protein 7.6 g/dL (6.4-8.2) 08/14/19 05:18 Albumin 3.4 g/dL (3.4-5.0) 08/14/19 05:18 Globulin 4.2 g/dL (2.5-4.5) 08/14/19 05:18 Albumin/Globulin Ratio 0.8 Ratio (1.1-2.1) L 08/14/19 05:18 Specimen Type Clean catch urine 08/12/19 06:05 Urine Color Yellow (YELLOW) 08/12/19 06:05 Urine Appearance Hazy (CLEAR) 08/12/19 06:05 Urine pH 7.0 (5.0 - 8.0) 08/12/19 06:05 Ur Specific [place] 1.010 (1.000-1.030) 08/12/19 06:05 Urine Protein 2+ (NEGATIVE) 08/12/19 06:05 Urine Glucose (UA) Negative (NEGATIVE) 08/12/19 06:05 Urine Ketones Negative (NEGATIVE) 08/12/19 06:05 Urine Occult Blood Negative (NEGATIVE) 08/12/19 06:05 Urine Nitrite Negative (NEGATIVE) 08/12/19 06:05 Urine Bilirubin Negative (NEGATIVE) 08/12/19 06:05 Urine Urobilinogen 1+ (NORMAL) 08/12/19 06:05 Ur Leukocyte Esterase Negative (NEGATIVE) 08/12/19 06:05 Urine RBC 0-2 /HPF (0-3) 08/12/19 06:05 Urine WBC 0-2 /HPF (0-5) 08/12/19 06:05 Ur Squamous Epith Cells Rare /HPF (NEGATIVE) 08/12/19 06:05 Amorphous Sediment 2+ /HPF (NEGATIVE) 08/12/19 06:05 Urine Bacteria Trace /HPF (NEGATIVE) 08/12/19 06:05 Ur Culture Indicated? No/not indicated 08/12/19 06:05 - Plan (1) Hypokalemia Status: Acute Plan: NS AT 40MEQ KCL AT 150 ML/HR, NORVASC 5MG PO DAILY, ZESTRIL 40MG PO DAILY, LOPRESSOR 25MG PO BID, AND THE POTASSIUM AND MAGNESIUM PROTOCOL, MONITOR POTASSIUM LEVELS (2) Accelerated hypertension Status: Acute Plan: NORVASC 5MG PO DAILY, ZESTRIL 40MG PO DAILY, LOPRESSOR 25MG PO BID (3) Agitation Status: Acute Plan: KLONOPIN 0.5MG PO TID PRN, CONTINUE TO MONITOR
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
[2019-08-14] MEDS: LIBRIUM PO SCH ×3 (10:54→21:00)
[2019-08-14] MEDS ORDERED: CATAPRES-TTS-2 TD SCH (11:00)
[2019-08-15] MEDS: NS + KCL 40 MEQ/L 1,000 ML IV SCH ×4 (03:58→20:05)
[2019-08-15 05:10] LABS: BASOPHILS % (AUTO) 0.3 % (0.2-1.0); EOSINOPHILS # (AUTO) 0.1 x10^3/uL (0.0-0.2); EOSINOPHILS % (AUTO) 1.6 % (0.9-2.9); HEMATOCRIT 50.4 % (42.0-54.0); HEMOGLOBIN 17.5 g/dL (13.5-18.0); LYMPHOCYTES # (AUTO) 2.1 X10^3/uL (1.3-2.9); LYMPHOCYTES % (AUTO) 25.1 % (21.0-51.0); MEAN CORPUSCULAR HEMOGLOBIN 30.5 pg (27.0-34.0); MEAN CORPUSCULAR HGB CONC 34.6 g/dL (33.0-35.0); MEAN CORPUSCULAR VOLUME 88.3 fL (80.0-100.0); MEAN PLATELET VOLUME 7.8 fL (7.4-11.0); MONOCYTES # (AUTO) 0.8 x10^3/uL (0.3-0.8); MONOCYTES % (AUTO) 9.2 % (0.0-13.0); NEUTROPHILS # (AUTO) 5.4 x10^3/uL (2.2-4.8); NEUTROPHILS % (AUTO) 63.8 % (42.0-75.0); PLATELET COUNT 287 X10^3/uL (150.0-450.0); RED BLOOD COUNT 5.71 X10^6/uL (4.7-6.0); RED CELL DISTRIBUTION WIDTH 13.7 % (11.6-16.5); WHITE BLOOD COUNT 8.5 X10^3/uL (3.6-10.0)
[2019-08-15 05:22] LABS: ALANINE AMINOTRANSFERASE 71 Units/L (12-78); ALBUMIN 3.7 g/dL (3.4-5.0); ALKALINE PHOSPHATASE 82 Units/L (46-116); ASPARTATE AMINO TRANSFERASE 42 Units/L (15-37); BLOOD UREA NITROGEN 11 mg/dL (7-18); CALCIUM 8.4 mg/dL (8.5-10.1); CARBON DIOXIDE 27.1 mmol/L (21-32); CHLORIDE 105 mmol/L (98-107); CREATININE 1.05 mg/dL (0.70-1.30); MAGNESIUM 1.8 mg/dL (1.7-2.9); SODIUM 140 mmol/L (136-145); TOTAL PROTEIN 8.1 g/dL (6.4-8.2); eGFR NON BLACK RACES > 60 (>60)
[2019-08-15] MEDS: LIBRIUM PO SCH ×3 (05:51→21:05)
[2019-08-15] MEDS: KLOR-CON PO PRN (08:57)
[2019-08-15] MEDS: NORVASC TAB 5 MG PO SCH (08:58)
[2019-08-15] MEDS: LOPRESSOR TAB 25 MG PO SCH ×2 (08:58→20:07)
[2019-08-15] MEDS: ZESTRIL TAB 40 MG PO SCH (08:58)
[2019-08-15] MEDS ORDERED: CATAPRES-TTS-3 TD SCH (11:00)
--- NOTE | 2019-08-15 12:30 | PCM.PROG ---
Progress Note - Progress Note for Day of Date of Exam: 08/15/19 - Subjective Subjective: IS BEING TREATED FOR HYPOKALEMIA, ACCELERATED HTN, AND AMS. TODAY, HE IS LYING IN BED WITH EYES OPEN ON MORNING ROUNDS. HE COMPLAINS OF ABDOMINAL PAIN, AROUND UMBILICUS AT THIS TIME. STAFF AND OFFICER REPORT THAT HE CONTINUES WITH DISORIENTATION AND AGITATION AT TIMES. ON EXAMINATION, HEART IS REGULAR IN RATE AND RHYTHM. BILATERAL LUNGS ARE NOTED WITH DIMINISHED LUNG SOUNDS THROUGHOUT. ABDOMEN IS ROUND, SOFT, AND NON-TENDER WITH NORMAL BOWEL SOUNDS NOTED IN ALL QUADRANTS. HIS VITALS THIS MORNING ARE: 97.9-52-18-95%-178/82. LABS WERE OBTAINED. ABNORMAL LAB VALUES INCLUDE THE FO LLOWING: POTASSIUM 3.3, CALCIUM 8.4, AST 42. HIS MAGNESIUM AND POTASSIUM HAVE INCREASED SINCE YESTERDAY. HIS BLOOD PRESSURE HAS REMAINED ELEVATED THROGHOUT THE NIGHT. HE IS CURRENTLY RECEIVING NS AT 40MEQ KCL AT 150 ML/HR, NORVASC 5MG PO DAILY, ZESTRIL 40MG PO DAILY, LOPRESSOR 25MG PO BID, LIBRIUM 10MG PO TID, A CLONIDINE 0.2MG/HR TD PATCH, AND HALDOL 2-4MG IM Q4H PRN AGITATION, AND THE POTASSIUM AND MAGNESIUM PROTOCOL. WE ARE ARRANGING PLACEMENT WITH BEHAVIORAL HEALTH TODAY. WE WILL INCREASE THE CLONIDINE PATCH TO 0.3MG/HR TD PATCH. OTHERWISE, WE WILL CONTINUE TO MONITOR BLOOD PRESSURE AND LABS LONG HE IS HERE AND MAKE CHANGES ACCORDINGLY. - Past Medical Family Social History Past Med/Fam/Surg Hx: No changes since H&P Allergies: Allergies No Known Drug Allergies Allergy (Verified 09/29/17 12:43) - Review of Systems ROS: No change since H&P - Vital Signs and I&O's Vital Signs: Temperature 97.9 F Pulse Rate [Right Brachial] 52 Pulse Rate [Brachial] 62 Pulse Rate 50 Respiratory Rate 18 Blood Pressure [Left Arm] 177/76 Blood Pressure [Right Arm] 178/82 Blood Pressure 150/83 O2 Sat by Pulse Oximetry 95 Intake and Output: Intake & Output 08/13/19 08/14/19 08/15/19 08/16/19 11:59 11:59 11:59 11:59 Intake Total 4514 / 4514 4140 / 4140 2079 / 2079 Output Total 1050 / 1050 Balance 3464 / 3464 4140 / 4140 2079 / 2079 - Physical Exam Oriented: Normal Eyes: Normal Ear: Normal Nose: Normal Throat: Normal Respiratory: Generalized, Diminished Cardiovascular: Normal. negative: S3, S4, Murmur : Normal Auscultation: Bowel Sounds: Normal Tenderness: Normal Skin: Normal Musculoskeletal: Right, Left, Hip, Tender Psychiatric: Other (DECREASED ALERTNESS ) Mood Description: Calm Affect: Normal Speech Pattern: Clear, Appropriate - Laboratory and Diagnostics Result Diagrams: 08/15/19 04:20 08/15/19 04:20 Labs: Laboratory WBC 8.5 X10^3/uL (3.6-10.0) 08/15/19 04:20 RBC 5.71 X10^6/uL (4.7-6.0) 08/15/19 04:20 Hgb 17.5 g/dL (13.5-18.0) 08/15/19 04:20 Hct 50.4 % (42.0-54.0) 08/15/19 04:20 MCV 88.3 fL (80.0-100.0) 08/15/19 04:20 MCH 30.5 pg (27.0-34.0) 08/15/19 04:20 MCHC 34.6 g/dL (33.0-35.0) 08/15/19 04:20 RDW 13.7 % (11.6-16.5) 08/15/19 04:20 Plt Count 287 X10^3/uL (150.0-450.0) 08/15/19 04:20 MPV 7.8 fL (7.4-11.0) 08/15/19 04:20 Neut % (Auto) 63.8 % (42.0-75.0) 08/15/19 04:20 Lymph % (Auto) 25.1 % (21.0-51.0) 08/15/19 04:20 [place] % (Auto) 9.2 % (0.0-13.0) 08/15/19 04:20 Eos % (Auto) 1.6 % (0.9-2.9) 08/15/19 04:20 Baso % (Auto) 0.3 % (0.2-1.0) 08/15/19 04:20 Neut # (Auto) 5.4 x10^3/uL (2.2-4.8) H 08/15/19 04:20 Lymph # (Auto) 2.1 X10^3/uL (1.3-2.9) 08/15/19 04:20 [place] # (Auto) 0.8 x10^3/uL (0.3-0.8) 08/15/19 04:20 Eos # (Auto) 0.1 x10^3/uL (0.0-0.2) 08/15/19 04:20 Baso # (Auto) 0.0 X10^3/uL (0.0-0.1) 08/15/19 04:20 Absolute Nucleated RBC 0.1 /100WBC 08/15/19 04:20 Sodium 140 mmol/L (136-145) 08/15/19 04:20 Corrected Sodium TNP 08/15/19 04:20 Potassium 3.3 mmol/L (3.5-5.1) L 08/15/19 04:20 Chloride 105 mmol/L (98-107) 08/15/19 04:20 Carbon Dioxide 27.1 mmol/L (21-32) 08/15/19 04:20 BUN 11 mg/dL (7-18) 08/15/19 04:20 Creatinine 1.05 mg/dL (0.70-1.30) 08/15/19 04:20 Est GFR (MDRD) Af Amer > 60 (>60) 08/15/19 04:20 Est GFR (MDRD) Non-Af > 60 (>60) 08/15/19 04:20 Glucose 93 mg/dL (65-99) 08/15/19 04:20 Calcium 8.4 mg/dL (8.5-10.1) L 08/15/19 04:20 Corrected Calcium TNP 08/15/19 04:20 Magnesium 1.8 mg/dL (1.7-2.9) 08/15/19 04:20 Total Bilirubin 0.40 mg/dL (0.2-1.0) 08/15/19 04:20 AST 42 Units/L (15-37) H 08/15/19 04:20 ALT 71 Units/L (12-78) 08/15/19 04:20 Alkaline Phosphatase 82 Units/L (46-116) 08/15/19 04:20 Creatine Kinase 170 Units/L (39-308) 08/12/19 04:46 CK-MB (CK-2) 2.1 ng/mL (0-4.0) 08/12/19 04:46 CK/CKMB % Calc 1.2 % (<4) 08/12/19 04:46 Troponin I 0.03 ng/mL (0-1.5) 08/12/19 04:46 Total Protein 8.1 g/dL (6.4-8.2) 08/15/19 04:20 Albumin 3.7 g/dL (3.4-5.0) 08/15/19 04:20 Globulin 4.4 g/dL (2.5-4.5) 08/15/19 04:20 Albumin/Globulin Ratio 0.8 Ratio (1.1-2.1) L 08/15/19 04:20 Specimen Type Clean catch urine 08/12/19 06:05 Urine Color Yellow (YELLOW) 08/12/19 06:05 Urine Appearance Hazy (CLEAR) 08/12/19 06:05 Urine pH 7.0 (5.0 - 8.0) 08/12/19 06:05 Ur Specific [place] 1.010 (1.000-1.030) 08/12/19 06:05 Urine Protein 2+ (NEGATIVE) 08/12/19 06:05 Urine Glucose (UA) Negative (NEGATIVE) 08/12/19 06:05 Urine Ketones Negative (NEGATIVE) 08/12/19 06:05 Urine Occult Blood Negative (NEGATIVE) 08/12/19 06:05 Urine Nitrite Negative (NEGATIVE) 08/12/19 06:05 Urine Bilirubin Negative (NEGATIVE) 08/12/19 06:05 Urine Urobilinogen 1+ (NORMAL) 08/12/19 06:05 Ur Leukocyte Esterase Negative (NEGATIVE) 08/12/19 06:05 Urine RBC 0-2 /HPF (0-3) 08/12/19 06:05 Urine WBC 0-2 /HPF (0-5) 08/12/19 06:05 Ur Squamous Epith Cells Rare /HPF (NEGATIVE) 08/12/19 06:05 Amorphous Sediment 2+ /HPF (NEGATIVE) 08/12/19 06:05 Urine Bacteria Trace /HPF (NEGATIVE) 08/12/19 06:05 Ur Culture Indicated? No/not indicated 08/12/19 06:05 - Plan (1) Hypokalemia Status: Acute Plan: NS AT 40MEQ KCL AT 150 ML/HR, NORVASC 5MG PO DAILY, ZESTRIL 40MG PO DAILY, LOPRESSOR 25MG PO BID, CLONIDINE 0.3MG/HR TD PATCH, AND THE POTASSIUM AND MAGNESIUM PROTOCOL, MONITOR POTASSIUM LEVELS (2) Accelerated hypertension Status: Acute Plan: NORVASC 5MG PO DAILY, ZESTRIL 40MG PO DAILY, LOPRESSOR 25MG PO BID, CLONIDINE 0.3MG/HR TD PATCH (3) Agitation Status: Acute Plan: LIBRIUM 10MG PO TID, AND HALDOL 2-4MG IM Q4H PRN AGITATION, CONTACT BEHAVIORAL HEALTH, CONTINUE TO MONITOR
--- NOTE | 2019-08-15 15:07 | RAD ---
HISTORY:Abdominal painStudy: KUBComparison:NoneFindings/Impression:Cholecystectomy clips are noted. There is moderate gaseous dist ention of the colon with retained stool at the rectum. No dilated small bowel loops are seen. No abno rmal calcifications to suggest renal calculi. The soft tissues are intact.Electronically signed by: Delfino GALLAGHER (August 15, 2019 15:06:37)
[2019-08-15] MEDS: K-DUR TAB 20 MEQ PO PRN (16:55)
[2019-08-15] MEDS ORDERED: VISTARIL PO PRN (23:18)
[2019-08-15] MEDS ORDERED: VISTARIL PO ONE (23:21)
[2019-08-16] MEDS: NS + KCL 40 MEQ/L 1,000 ML IV SCH ×3 (02:06→09:50)
[2019-08-16] MEDS: LIBRIUM PO SCH ×2 (05:20→13:23)
[2019-08-16 05:27] LABS: BASOPHILS % (AUTO) 0.5 % (0.2-1.0); EOSINOPHILS # (AUTO) 0.2 x10^3/uL (0.0-0.2); EOSINOPHILS % (AUTO) 1.8 % (0.9-2.9); HEMATOCRIT 46.9 % (42.0-54.0); HEMOGLOBIN 16.1 g/dL (13.5-18.0); LYMPHOCYTES # (AUTO) 2.9 X10^3/uL (1.3-2.9); LYMPHOCYTES % (AUTO) 31.1 % (21.0-51.0); MEAN CORPUSCULAR HEMOGLOBIN 30.5 pg (27.0-34.0); MEAN CORPUSCULAR HGB CONC 34.3 g/dL (33.0-35.0); MEAN CORPUSCULAR VOLUME 88.9 fL (80.0-100.0); MEAN PLATELET VOLUME 8.1 fL (7.4-11.0); MONOCYTES # (AUTO) 0.8 x10^3/uL (0.3-0.8); MONOCYTES % (AUTO) 8.5 % (0.0-13.0); NEUTROPHILS # (AUTO) 5.4 x10^3/uL (2.2-4.8); NEUTROPHILS % (AUTO) 58.1 % (42.0-75.0); PLATELET COUNT 283 X10^3/uL (150.0-450.0); RED BLOOD COUNT 5.27 X10^6/uL (4.7-6.0); RED CELL DISTRIBUTION WIDTH 13.5 % (11.6-16.5); WHITE BLOOD COUNT 9.4 X10^3/uL (3.6-10.0)
[2019-08-16 05:37] LABS: ALANINE AMINOTRANSFERASE 76 Units/L (12-78); ALBUMIN 3.4 g/dL (3.4-5.0); ALKALINE PHOSPHATASE 71 Units/L (46-116); ASPARTATE AMINO TRANSFERASE 37 Units/L (15-37); BLOOD UREA NITROGEN 9 mg/dL (7-18); CALCIUM 8.3 mg/dL (8.5-10.1); CARBON DIOXIDE 23.9 mmol/L (21-32); CHLORIDE 107 mmol/L (98-107); CREATININE 1.04 mg/dL (0.70-1.30); SODIUM 141 mmol/L (136-145); TOTAL PROTEIN 7.4 g/dL (6.4-8.2); eGFR NON BLACK RACES > 60 (>60)
[2019-08-16] MEDS: NORVASC TAB 5 MG PO SCH (08:34)
[2019-08-16] MEDS: ZESTRIL TAB 40 MG PO SCH (08:34)
[2019-08-16] MEDS: LOPRESSOR TAB 25 MG PO SCH (08:35)
[2019-08-16 15:53] VITALS: BP 155/83
== END 2019-08-16 16:15 | disposition home or self-care (01) | DRG 641 ==
LOC: ER 16:05 → MED/SURG 16:05 → OBSVTOIN 22:45 → MED/SURG 23:20
PROVIDERS: ADMIT Internal Medicine; ATTEND Internal Medicine
DX: I25.10 Atherosclerotic heart disease of native coronary artery without angina pectoris; E87.6 Hypokalemia; R94.31 Abnormal electrocardiogram [ECG] [EKG]; R45.1 Restlessness and agitation; R41.82 Altered mental status, unspecified; R51 Headache; I10 Essential (primary) hypertension; R00.1 Bradycardia, unspecified; M25.551 Pain in right hip; R10.84 Generalized abdominal pain
CPT/HCPCS: 36415; 70450; 71010; 71045; 73501; 74000; 74018; 80053; 81001; 82550; 82553; 83735; 84132; 84484; 85025; 93005; 94760; 96365; 99284; A4222; J3475; J3480; J7030; Q0177

== ENCOUNTER 2021-04-20 19:41 | Inpatient (IN) ==
[2021-04-20 20:27] LABS: BASOPHILS # (AUTO) 0.1 X10^3/uL (0.0-0.1); BASOPHILS % (AUTO) 0.4 % (0.2-1.0); EOSINOPHILS # (AUTO) 0.2 x10^3/uL (0.0-0.2); EOSINOPHILS % (AUTO) 1.1 % (0.9-2.9); HEMATOCRIT 44.3 % (42.0-54.0); HEMOGLOBIN 15.1 g/dL (13.5-18.0); LYMPHOCYTES # (AUTO) 1.7 X10^3/uL (1.3-2.9); LYMPHOCYTES % (AUTO) 9.4 % (21.0-51.0); MEAN CORPUSCULAR HEMOGLOBIN 31.4 pg (27.0-34.0); MEAN CORPUSCULAR VOLUME 92.3 fL (80.0-100.0); MEAN PLATELET VOLUME 7.8 fL (7.4-11.0); MONOCYTES # (AUTO) 1.3 x10^3/uL (0.3-0.8); MONOCYTES % (AUTO) 7.4 % (0.0-13.0); NEUTROPHILS # (AUTO) 14.4 x10^3/uL (2.2-4.8); NEUTROPHILS % (AUTO) 81.7 % (42.0-75.0); RED CELL DISTRIBUTION WIDTH 13.4 % (11.6-16.5); WHITE BLOOD COUNT 17.7 X10^3/uL (3.6-10.0)
[2021-04-20] MEDS ORDERED: APRESOLINE INJ 20 MG VIAL IVP ONE (20:38)
[2021-04-20] MEDS ORDERED: APRESOLINE INJ 20 MG VIAL ONE (20:40)
--- NOTE | 2021-04-20 21:02 | CT ---
EXAM: HEAD CT WITHOUT INTRAVENOUS CONTRASTHISTORY: Altered mental status.TECHNIQUE: Spiral axial CT images are obtained through the brain without the administration of intravenous contrast. Additional sagittal and coronal reformatted images are reconstructed.DOSIMETRY: Total DLP 1222.6 mGycm; CTDI 67.4 mGyCOMPARISON: Head CT dated August 11, 2019.FINDINGS:There are parenchymal lucencies within the white matter tracks of the centrum semiovale, consistent with chronic sequela of atherosclerotic microvascular ischemic disease. Nonspecific pineal gland calcification is seen.There is diffuse cerebral cortical atrophy. The centrum semiovale, basal ganglia, cerebellum, and brainstem are otherwise grossly unremarkable for a noncontrast CT scan. There is no acute intracranial hemorrhage, gross acute infarction, mass lesion, midline shift, or hydrocephalus seen. No extra-axial mass or abnormal fluid collection noted.The calvarium is intact. The partially imaged paranasal sinuses, middle ear cavities and mastoid air cells are clear.IMPRESSION:1. Chronic microvascular ischemic disease, but no discernible acute infarction seen. Consider followup MRI with diffusion-weighted imaging to rule out occult acute infarction if clinically warranted.2. No skull fracture, intracranial hemorrhage, mass lesion, midline shift, or hydrocephalus seen.3. No significant interval change seen.Electronically signed by: Dc Limon (Apr 20, 2021 21:01:18)
[2021-04-20 21:04] LABS: ALANINE AMINOTRANSFERASE 26 Units/L (12-78); ALBUMIN 3.6 g/dL (3.4-5.0); ALKALINE PHOSPHATASE 135 Units/L (46-116); ASPARTATE AMINO TRANSFERASE 31 Units/L (15-37); BLOOD UREA NITROGEN 14 mg/dL (7-18); CALCIUM 8.8 mg/dL (8.5-10.1); CHLORIDE 101 mmol/L (98-107); CKMB % 3.6 % (<4); CREATINE KINASE 208 Units/L (39-308); CREATININE 1.24 mg/dL (0.70-1.30); SODIUM 140 mmol/L (136-145); TOTAL PROTEIN 8.6 g/dL (6.4-8.2); eGFR NON BLACK RACES > 60 (>60)
[2021-04-20 21:06] LABS: CREATINE KINASE MB 7.5 ng/mL (0-4.0)
[2021-04-20] MEDS ORDERED: LOPRESSOR INJ 5 MG AMP IVP ONE (21:07)
[2021-04-20] MEDS ORDERED: NITRO-BID OINT 2% UD (E.R. USE ONLY) TD ONE (21:07)
--- NOTE | 2021-04-20 21:08 | DR.CP ---
HPI Time Seen Time Seen by Provider: 04/20/21 20:25 PCP Primary Care Physician: MARIA FERNANDA MOSQUEDA HPI Comment HPI Comment: Brought in by who reports that pt has been talking and acting funny for the past five hours; started after a visit to dentist today; he has not had pain med since this morning; he has had a cough for a few days but no fever, chills, abd pain, n/v/d; currently appears agitated somewhat with trembling all over and picking at crotch of pants; attempts to answer questions but no actual words are appreciated. Complaint Chief Complaint:: PT STATES THAT THEY WAS ON THE WAY HOME FROM [facility] THEY HAD A DENIST APPT AND THEY WAS COMING THROUGH [place] ABOUT 4 WHEN SHE NOTICE HE STARTED ACTING DIFFERENT NOT BEING ABLE TO TELL HIS DATE OF BUT CAN TELL YOU HIS NAMES. ONLY BUMPLING CANT GET WORDS OUT. PT COMPLAINS OF CHEST PAIN WELL COVID-19 Coronavirus risk:travel/contact w/high risk person: No Has patient experienced Coronavirus symptoms: No Source History Provided: Patient Mode of Arrival Mode of Arrival: Ambulatory Timing Onset of Chief Complaint: 04/20/21 PMH PMH Past Medical History: Yes Past Medical History: COPD and Hypertension Past Surgical History: Yes Surgical History: Ortho Surgery Family History History of Family Medical Conditions: Yes Family Medical History: Diabetes Mellitus and Hypertension Social History Does patient currently use any type of tobacco product: Yes Have you used tobacco products in the last 12 months: Yes Type of Tobacco Use: Cigarettes How many years tobacco product used: 35 Does any household member use tobacco: No Alcohol Use: None Do you use any recreational Drugs:: No Lives With: Spouse Lives Where: Home Travel Risk Coronavirus risk:travel/contact w/high risk person: No Has patient experienced Coronavirus symptoms: No Infectious screening In the last 2 months have you had wt loss of >10#?: NO Have you had fever, night sweats or hemotysis?: No Have you traveled outside the country in the last 6 months?: No Isolation: Standard ROS Review of Systems Unable to Obtain Due To: Altered mental status PE Vitals Vitals: Temperature 98.6 F Pulse Rate 70 Respiratory Rate 31 Blood Pressure [Left Arm] 188/92 Blood Pressure [Right Arm] 155/83 Blood Pressure 193/89 O2 Sat by Pulse Oximetry 88 General Limitations: No Limitations General Appearance: Alert and In No Apparent Distress Head Head Exam: Normal Inspection and Atraumatic Eyes Eye exam: Normal Appearance ENT ENT Exam: Normal Exam Chest Chest Inspection: Normal Inspection Respiratory Respiratory Exam: Bilateral: Wheezing (scattered lt greater than rt ) Cardiovascular Cardiovascular Exam: Regular Rate and Normal Rhythm Pulse: Normal Edema: Normal Abdominal Exam Abdominal Exam: Normal Inspection, Normal Bowel Sounds and Soft Extremities Extremities Exam: Normal Inspection Back Back Exam: Normal Inspection Neurologic Neurological Exam: Other (disoriented, nonsensical speech) Psychiatric Psychiatric Exam: Agitated Skin Skin Exam: Warm, Dry, Intact and Normal Color COURSE Consultation Call Returned: 00:45 (Dr Real accepts admission.) Critical Care Notes Total Time (mins): 30 Critical Diagnosis: hypoxia, sepsis, multilobar pneu, metabolic encephalopathy Critical Interventions: labs and xray evaluation, oxygen management, haldol/ativan for agitation, discussion of dx and need for admission with son and , discussion with Dr Real re: admission and need for retesting for covid ROR Labs Reviewed Laboratory Results Reviewed?: Yes Result Diagrams: 04/23/21 05:35 04/23/21 05:35 Laboratory: WBC 17.7 X10^3/uL (3.6-10.0) H 04/20/21 20:16 RBC 4.80 X10^6/uL (4.7-6.0) 04/20/21 20:16 Hgb 15.1 g/dL (13.5-18.0) 04/20/21 20:16 Hct 44.3 % (42.0-54.0) 04/20/21 20:16 MCV 92.3 fL (80.0-100.0) 04/20/21 20:16 MCH 31.4 pg (27.0-34.0) 04/20/21 20:16 MCHC 34.0 g/dL (33.0-35.0) 04/20/21 20:16 RDW 13.4 % (11.6-16.5) 04/20/21 20:16 Plt Count 300 X10^3/uL (150.0-450.0) 04/20/21 20:16 MPV 7.8 fL (7.4-11.0) 04/20/21 20:16 Neut % (Auto) 81.7 % (42.0-75.0) H 04/20/21 20:16 Lymph % (Auto) 9.4 % (21.0-51.0) L 04/20/21 20:16 [place] % (Auto) 7.4 % (0.0-13.0) 04/20/21 20:16 Eos % (Auto) 1.1 % (0.9-2.9) 04/20/21 20:16 Baso % (Auto) 0.4 % (0.2-1.0) 04/20/21 20:16 Neut # (Auto) 14.4 x10^3/uL (2.2-4.8) H 04/20/21 20:16 Lymph # (Auto) 1.7 X10^3/uL (1.3-2.9) 04/20/21 20:16 [place] # (Auto) 1.3 x10^3/uL (0.3-0.8) H 04/20/21 20:16 Eos # (Auto) 0.2 x10^3/uL (0.0-0.2) 04/20/21 20:16 Baso # (Auto) 0.1 X10^3/uL (0.0-0.1) 04/20/21 20:16 Absolute Nucleated RBC 0.1 /100WBC 04/20/21 20:16 D-Dimer 1.03 ug/ml (0.0-0.57) H* 04/20/21 20:16 Sample Site Lr 04/20/21 20:09 ABG pH 7.490 (7.35-7.45) H 04/20/21 20:09 ABG pCO2 41.0 mmHg (35.0-45.0) 04/20/21 20:09 ABG pO2 48.0 mmHg (80.0-100.0) L* 04/20/21 20:09 ABG HCO3 31.2 mmol/L (22-26) H* 04/20/21 20:09 ABG O2 Saturation 87.0 % (90-100) L 04/20/21 20:09 ABG Base Excess 7.2 mmol/L (-2.0-2.0) H 04/20/21 20:09 Kelvin Test Pos 04/20/21 20:09 A-a Gradient 50.0 mmHg 04/20/21 20:09 FiO2 21.0 04/20/21 20:09 Blood Gas Comments Enrique well sw 04/20/21 20:09 Sodium 140 mmol/L (136-145) 04/20/21 20:16 Corrected Sodium TNP 04/20/21 20:16 Potassium 4.8 mmol/L (3.5-5.1) 04/20/21 20:16 Chloride 101 mmol/L (98-107) 04/20/21 20:16 Carbon Dioxide 33.0 mmol/L (21-32) H 04/20/21 20:16 BUN 14 mg/dL (7-18) 04/20/21 20:16 Creatinine 1.24 mg/dL (0.70-1.30) 04/20/21 20:16 Est GFR (MDRD) Af Amer > 60 (>60) 04/20/21 20:16 Est GFR (MDRD) Non-Af > 60 (>60) 04/20/21 20:16 Glucose 97 mg/dL (65-99) 04/20/21 20:16 Calcium 8.8 mg/dL (8.5-10.1) 04/20/21 20:16 Corrected Calcium TNP 04/20/21 20:16 Total Bilirubin 0.50 mg/dL (0.2-1.0) 04/20/21 20:16 AST 31 Units/L (15-37) 04/20/21 20:16 ALT 26 Units/L (12-78) 04/20/21 20:16 Alkaline Phosphatase 135 Units/L (46-116) H 04/20/21 20:16 Creatine Kinase 177 Units/L (39-308) 04/21/21 00:14 CK-MB (CK-2) 3.9 ng/mL (0-4.0) 04/21/21 00:14 CK/CKMB % Calc 2.2 % (<4) 04/21/21 00:14 Troponin I High Sens 42.0 ng/L (4.0-60.0) 04/21/21 00:14 Total Protein 8.6 g/dL (6.4-8.2) H 04/20/21 20:16 Albumin 3.6 g/dL (3.4-5.0) 04/20/21 20:16 Globulin 5.0 g/dL (2.5-4.5) H 04/20/21 20:16 Albumin/Globulin Ratio 0.7 Ratio (1.1-2.1) L 04/20/21 20:16 Urine Opiates Screen Negative (NEG=<300) 04/20/21 21:41 Urine Methadone Screen Negative (NEG=<300) 04/20/21 21:41 Ur Barbiturates Screen Negative (NEG=<200) 04/20/21 21: Ur Phencyclidine Scrn Negative (NEG=<25) 04/20/21 21: Ur Amphetamines Screen Negative (NEG=<1000) 04/20/21 21: U Benzodiazepines Scrn Negative (NEG=<200) 04/20/21: Urine Cocaine Screen Negative (NEG=<300) 04/20/21 21: U Marijuana (THC) Screen Negative (NEG=<50) 04/20/21 21:41 Influenza Type A Ag Negative-presumptive (NEGATIVE) 04/20/21 20:23 Influenza Type B Ag Negative-presumptive (NEGATIVE) 04/20/21 20: SARS CoV-2 RNA Rapid CRISTOFER Negative (NEGATIVE) 04/20/21 20:23 XRAY XRAY Interpreted by: Radiologist X-ray Results: ct brain: 1. Chronic microvascular ischemic disease, but no discernible acute infarction seen. Consider followup MRI with diffusion-weighted imaging to rule out occult acute infarction if clinically warranted. 2. No skull fracture, intracranial hemorrhage, mass lesion, midline shift, or hydrocephalus seen. 3. No significant interval change seen. cxr: 1. Bilateral interstitial prominence. Findings may represent atypical infection, including viral etiologies. cta: 1. Extensive mild bilateral patchy subpleural groundglass parenchymal infiltrates in both lungs which could represent Covid pneumonia in the appropriate clinical setting. Clinical correlation is advised. 2. Extensive patchy bronchopulmonary lung parenchymal infiltrates throughout the central right middle lobe, right lower lobe, and especially the left lower lobe in keeping with acute bronchopneumonia. 3. Large consolidative infiltrate (approximately 6 cm AP by 6.6 cm transverse by 7 cm CC) seen in the posterior left lower lobe in keeping with consolidative bacterial pneumonia in the appropriate clinical setting. 4. Shotty mediastinal and bilateral hilar lymphadenopathy in keeping with reactive lymphadenopathy. 5. No evidence for PE, aortic aneurysm or aortic dissection. 6. No lung mass, endobronchial obstructing lesion, pleural effusion, or pneumothorax seen. Opioid Opioid Risk Tool Age (Deejay box if 16-45): No History of Preadolescent Sexual Abuse: No Total: 0 Total Score Risk Category: Low Risk Copyright: Cabrera BARILLAS predicting aberrant behaviors Diagnosis Discharge Problem: Acute metabolic encephalopathy, Multifocal pneumonia Instructions Instructions: Hypoxia Community-Acquired Pneumonia, Adult Community-Acquired Pneumonia, Adult, [id number] Sepsis, Self Care, Adult Forms: Excuse From Work or School Precautions for COVID19 [facility] Social Distancing
--- NOTE | 2021-04-20 21:17 | RAD ---
CHEST, 1 VIEWHISTORY: AMSStudy: Single view of the chest.Comparison:NoneFindings:The cardiomediastinal silhouette is normal. Bilateral interstitial prominence. No focal consolidations, pleural effusions or pneumothorax. Osseous structures demonstrate no acute abnormality.IMPRESSION:1. Bilateral interstitial prominence. Findings may represent atypical infection, including viral etiologies.Electronically signed by: JOSÉ MANUEL ANDERSON (Apr 20, 2021 21:15:19)
[2021-04-20 21:28] LABS: ABG ALLEN TEST POS; ABG BASE EXCESS 7.2 mmol/L (-2.0-2.0); ABG HCO3 31.2 mmol/L (22-26)
[2021-04-20] MEDS ORDERED: NS 100 ML IV 100 ML ONE (21:31)
[2021-04-20] MEDS ORDERED: ATIVAN INJ 2 MG VIAL IVP STA (21:57)
[2021-04-20] MEDS ORDERED: LOPRESSOR INJ 5 MG AMP ONE (22:27)
[2021-04-20] MEDS ORDERED: NITRO-BID OINT 2% UD (E.R. USE ONLY) ONE (22:27)
[2021-04-20] MEDS ORDERED: ATIVAN INJ 2 MG VIAL ONE ×2 (22:27→23:56)
--- NOTE | 2021-04-20 22:37 | CT ---
EXAM: CTA CHEST WITH INTRAVENOUS CONTRASTHISTORY: Hypoxia. Elevated D-dimer.TECHNIQUE: Spiral axial CT images are obtained through the chest with the administration of intravenous contrast. Coronal, sagittal and 3D MIP images are reformatted.DOSIMETRY: Total DLP 1079.9 mGycm; CTDI 245.9 mGyCOMPARISON: None available.FINDINGS:CARDIOVASCULAR: There is no evidence for pulmonary embolic disease. There is aortic atherosclerosis marked by calcified mural plaques. There is approximately 4.5 cm aneurysmal dilatation of the ascending thoracic aorta; no aortic dissection or rupture is seen. There is severe coronary atherosclerosis. The heart size is within normal limits. No pericardial effusion is seen.MEDIASTINUM AND GABBY: There is shotty bilateral hilar and mediastinal lymphadenopathy in keeping with reactive lymphadenopathy. No mass lesion, emphysema, or abnormal fluid collection is seen.LUNGS: There are extensive mild bilateral patchy subpleural groundglass parenchymal infiltrates in both lungs which could represent Covid pneumonia in the appropriate clinical setting. Clinical correlation is advised. There are extensive patchy bronchopulmonary lung parenchymal infiltrates throughout the central right middle lobe, right lower lobe, and especially the left lower lobe in keeping with acute bronchopneumonia. Large consolidative infiltrate (approximately 6 cm AP by 6.6 cm transverse by 7 cm CC) seen in the posterior left lower lobe in keeping with consolidative bacterial pneumonia in the appropriate clinical setting. There is no lung mass, lung nodule, or endobronchial obstructing lesion seen. No pleural effusion or pneumothorax is evident.CHEST WALL: There are no chest wall lesions seen. The visualized bony structures are within normal limits. No axillary lymphadenopathy is noted.UPPER ABDOMEN: Limited views through the upper abdomen demonstrate no gross acute abnormality.IMPRESSION:1. Extensive mild bilateral patchy subpleural groundglass parenchymal infiltrates in both lungs which could represent Covid pneumonia in the appropriate clinical setting. Clinical correlation is advised.2. Extensive patchy bronchopulmonary lung parenchymal infiltrates throughout the central right middle lobe, right lower lobe, and especially the left lower lobe in keeping with acute bronchopneumonia.3. Large consolidative infiltrate (approximately 6 cm AP by 6.6 cm transverse by 7 cm CC) seen in the posterior left lower lobe in keeping with consolidative bacterial pneumonia in the appropriate clinical setting.4. Shotty mediastinal and bilateral hilar lymphadenopathy in keeping with reactive lymphadenopathy.5. No evidence for PE, aortic aneurysm or aortic dissection.6. No lung mass, endobronchial obstructing lesion, pleural effusion, or pneumothorax seen.Electronically signed by: Dc Limon (Apr 20, 2021 22:35:10)
[2021-04-20] MEDS ORDERED: ATIVAN INJ 2 MG VIAL IVP ONE (23:54)
[2021-04-21] MEDS ORDERED: ZOSYN VIAL 3.375 GRAMS 3.375 G in NS 100 ML IV + SPIKE MINIBAG* 100 ML IV ONE (00:29)
[2021-04-21] MEDS ORDERED: HALDOL INJ IM ONE (00:34)
[2021-04-21] MEDS ORDERED: NS 100 ML IV + SPIKE MINIBAG* 100 ML IV ONE (00:35)
[2021-04-21] MEDS ORDERED: ZOSYN VIAL 3.375 GRAMS IV ONE (00:35)
[2021-04-21] MEDS ORDERED: HALDOL INJ ONE (00:40)
[2021-04-21] MEDS ORDERED: OFIRMEV IV 1000 MG VIAL 1,000 MG/100 ML VIAL IV ONE ×2 (00:47→00:48)
[2021-04-21 00:57] LABS: CKMB % 2.2 % (<4); CREATINE KINASE MB 3.9 ng/mL (0-4.0)
[2021-04-21] MEDS ORDERED: ATIVAN INJ 2 MG VIAL IVP PRN (01:09)
[2021-04-21] MEDS ORDERED: HALDOL INJ IM PRN ×2 (01:09→12:24)
[2021-04-21] MEDS ORDERED: NORCO 7.5/325 MG TAB PO PRN (01:09)
[2021-04-21] MEDS ORDERED: OFIRMEV IV 1000 MG VIAL 1,000 MG/100 ML VIAL IV PRN (01:09)
[2021-04-21] MEDS ORDERED: ZOFRAN INJ 4 MG VIAL IVP PRN (01:09)
[2021-04-21] MEDS ORDERED: NS 1,000 ML IV 1,000 ML ONE (02:45)
[2021-04-21] MEDS: NS 1,000 ML IV 1,000 ML IV SCH ×3 (03:00→18:11)
[2021-04-21 06:38] LABS: BASOPHILS % (AUTO) 0.2 % (0.2-1.0); EOSINOPHILS % (AUTO) 0.1 % (0.9-2.9); HEMATOCRIT 36.8 % (42.0-54.0); HEMOGLOBIN 12.6 g/dL (13.5-18.0); LYMPHOCYTES # (AUTO) 2.1 X10^3/uL (1.3-2.9); LYMPHOCYTES % (AUTO) 10.8 % (21.0-51.0); MEAN CORPUSCULAR HEMOGLOBIN 31.5 pg (27.0-34.0); MEAN CORPUSCULAR HGB CONC 34.3 g/dL (33.0-35.0); MEAN CORPUSCULAR VOLUME 91.8 fL (80.0-100.0); MEAN PLATELET VOLUME 8.1 fL (7.4-11.0); MONOCYTES # (AUTO) 1.5 x10^3/uL (0.3-0.8); MONOCYTES % (AUTO) 8.1 % (0.0-13.0); NEUTROPHILS # (AUTO) 15.5 x10^3/uL (2.2-4.8); NEUTROPHILS % (AUTO) 80.8 % (42.0-75.0); RED BLOOD COUNT 4.01 X10^6/uL (4.7-6.0); RED CELL DISTRIBUTION WIDTH 13.4 % (11.6-16.5); WHITE BLOOD COUNT 19.1 X10^3/uL (3.6-10.0)
[2021-04-21 07:02] LABS: ALANINE AMINOTRANSFERASE 19 Units/L (12-78); ALKALINE PHOSPHATASE 108 Units/L (46-116); ASPARTATE AMINO TRANSFERASE 25 Units/L (15-37); BLOOD UREA NITROGEN 13 mg/dL (7-18); CALCIUM 8.6 mg/dL (8.5-10.1); CARBON DIOXIDE 29.7 mmol/L (21-32); CHLORIDE 104 mmol/L (98-107); COR CA(FOR HYPOALB) 9.4 mg/dL (8.5-10.1); CREATININE 1.16 mg/dL (0.70-1.30); SODIUM 142 mmol/L (136-145); TOTAL PROTEIN 7.3 g/dL (6.4-8.2); eGFR NON BLACK RACES > 60 (>60)
[2021-04-21] MEDS ORDERED: MOTRIN TAB 800 MG PO PRN (08:29)
[2021-04-21] MEDS ORDERED: AMBIEN PO PRN (08:29)
[2021-04-21] MEDS ORDERED: NORCO 5/325 MG TAB PO PRN (08:29)
[2021-04-21] MEDS: PULMICORT NEB TX 0.5 MG NEB SCH ×2 (08:30→21:38)
[2021-04-21] MEDS: BROVANA IN SCH ×2 (08:30→21:38)
[2021-04-21] MEDS: ZOSYN VIAL 3.375 GRAMS 3.375 G in NS 100 ML IV + SPIKE MINIBAG* 100 ML IV SCH ×3 (08:31→21:12)
[2021-04-21 08:54] LABS: CKMB % 2.5 % (<4)
[2021-04-21 08:56] LABS: CREATINE KINASE MB 8.3 ng/mL (0-4.0)
[2021-04-21] MEDS: CYMBALTA PO SCH ×2 (09:37→20:25)
[2021-04-21] MEDS: NexIUM PO SCH (09:38)
[2021-04-21] MEDS: MICRO K EXTEN CAP 10 MEQ PO SCH (09:38)
[2021-04-21] MEDS: NORVASC TAB 5 MG PO SCH ×2 (09:38→20:26)
[2021-04-21] MEDS: MOBIC TAB 15 MG PO SCH (09:38)
[2021-04-21] MEDS: LEVAQUIN PREMIX IV 500 MG 500 MG/100 ML BAG IV SCH (10:35)
[2021-04-21] MEDS: NICOTINE PATCH TD SCH (10:36)
--- NOTE | 2021-04-21 12:39 | DR.H&P ---
H&P - History & Physical for Day of: H&P Date: 04/21/21 - Chief Complaint Chief Complaint: COUGH, CONGESTION, AMS - History of Present Illness History of Present Illness: IS A 65 YEAR OLD PATIENT OF PAT Code Fever. HE WAS BROUGHT TO THE ER BY HIS SPOUSE. SHE REPORTS THAT EARLIER IN THE DAY, PATIENT BEGAN HAVING CONFUSION AND WASNT ABLE TO COMPLETE HIS SENTENCES. SHE REPORTS THAT PATIENT HAS HAD COUGH, CONGESTION, AND CHEST DISCOMFORT FOR THE PAST 2-3 DAYS. HIS PMH INCLUDES COPD, HTN, AND ORTHOPEDIC SURGERY. UPON ARRIVAL TO THE ER, PATIENT WAS NOTED TO BE AGITATED AND COMBATIVE. HE ATTEMPTS TO ANSWER QUESTIONS, BUT RESPONSES ARE INAPPROPRIAT AND DELAYED. ON ARRIVAL, HIS VITALS WERE 98.6-62-20-87%RA-166/87. LABS WERE OBTAINED. WBC 17.7, HGB 15.1, HCT 44.3, D-DIMER 1.03, SODIUM 140, POTASSIUM 4.8, CARBON DIOXIDE 33.0, BUN 14, CREATININE 1.24, GLUCOSE 97, CALCIUM 8.8, ALK PHOS 135, TOTAL PROTEIN 8.6, ALBUMIN 3.6, CK- MB 7.5. TROPONIN WITHIN NORMAL LIMITS. URINE TOXICOLOGY NEGATIVE. COVID-19 AND INFLUENZA NEGATIVE. BLOOD CULTURES WERE SET UP. ABG REVEALED: PH 7.490, PC02 41, P02 48, HC03 31.2, 02 SAT 87, BASE EXCESS 7.2, A-A GRADINET 50, FIO2 21. A BRAIN CT WAS OBTAINED AND REVEALED: 1. Chronic microvascular ischemic disease, but no discernible acute infarction seen. Consider followup MRI with diffusion-weighted imaging to rule out occult acute infarction if clinically warranted. 2. No skull fracture, intracranial hemorrhage, mass lesion, midline shift, or hydrocephalus seen. 3. No significant interval change seen. A CHEST XRAY WAS OBTAINED AND REVEALED: 1. Bilateral interstitial prominence. Findings may represent atypical infection, including viral etiologies. EKG REVEALED: SINUS RHYTHM WITH HR 61. A CHEST CTA WAS OBTAINED AND REVEALED: 1. Extensive mild bilateral patchy subpleural groundglass parenchymal infiltrates in both lungs which could represent Covid pneumonia in the appropriate clinical setting. 2. Extensive patchy bronchopulmonary lung parenchymal infiltrates throughout the central right middle lobe, right lower lobe, and especially the left lower lobe in keeping with acute bronchopneumonia. 3. Large consolidative infiltrate (approximately 6 cm AP by 6.6 cm transverse by 7 cm CC) seen in the posterior left lower lobe in keeping with consolidative bacterial pneumonia in the appropriate clinical setting. 4. Shotty mediastinal and bilateral hilar lymphadenopathy in keeping with reactive lymphadenopathy. 5. No evidence for PE, aortic aneurysm or aortic dissection. 6. No lung mass, endobronchial obstructing lesion, pleural effusion, or pneumothorax seen. HIS SPOUSE REPORTS THAT SHE HAD COVID ABOUT TWO MONTHS AGO AND THAT HE HAD SYMPTOMS AT THAT TIME AND MAY HAVE BEEN POSITIVE, BUT HE WAS NEVER TESTED. IN THE ER, HE WAS GIVEN APRESOLINE 10MG IV X 1 DSOE, LOPRESSOR 5MG V X 1 DOSE, NITROBID OINTMENT X 1 DOSE, ATIVAN 1MG IV X 1 DOSE, ZOSYN 3.375G IV X 1 DOSE, HALDOL 5MG IM X 1 DOSE, AND OFIRMEV 1G IV X 1 DOSE. HE WAS ADMITTED TO THE HOSPTIAL FOR FURTHER EVALUATION AND TREATMENT OF MULTILOBAR PNEUMONIA, HYPOXIA, SEPSIS, AND METABOLIC ENCEPHALOPATHY. HE WAS STARTED ON SUPPLEMENTAL OXYGEN, NORMAL SALINE AT 125ML/HR, ZOSYN 3.375G IV TID, LEVAQUIN 500MG IV DAILY, PULMICORT NEBS BID, BROVANA BID, DUONEBS TID, HALDOL 2.5MG IM Q6H PRN, ZOFRAN 4MG IV Q8H PRN, OFIRMEV 1G IV Q6H PRN, NICOTINE PATCH DAILY, AMBIEN 10MG PO HS PRN, AND HIS HOME MEDICATIONS OF NORVASC, CYMBALTA, NEXIUM, NEURONTIN, NORCO, MOTRIN, AND MOBIC WERE RESUMED. OTHERWISE, WE PLAN TO FOLLOW UP WITH AM LABS AND CHEST XRAY AND CONTINUE TO MONITOR. TIME SPENT ON CLINICAL ASSESSMENT, REVIEWING LABS AND IMAGING, DECISION MAKING, AND DOCUMENTATION GREATER THAN 75 MINUTES. - Past Medical History Past Medical History: Hypertension, COPD Additional Medical History: Muscle Weakness, Chronic Neck and Back pain, PANCREATITIS - Past Surgical History Surgical History: Appendectomy, Cholecystectomy, Joint Replacement, Ortho Surgery, Other - Family History Family Medical History: Diabetes Mellitus, Coronary Artery Disease, Hypertension - Social History Does patient currently use any type of tobacco product: Yes Have you used tobacco products in the last 12 months: Yes Type of Tobacco Use: Cigarettes How many years tobacco product used: 40 Does any household member use tobacco: Yes Alcohol Use: None Drug Use: None - Medications Home Medications: lorazepam [From Ativan] Allergy (Verified 04/21/21 01:52) CONTINUE taking the following medications gabapentin 400 mg PO TID 04/21/21 [History] nebivolol [Bystolic] 10 mg PO DAILY 04/21/21 [History] potassium chloride 10 meq PO DAILY 04/21/21 [History] - Review of Systems Constitutional: Weakness Eyes: No Symptoms Reported ENT: Nose Congestion Respiratory: See HPI, Cough Cardiovascular: Chest Pain Gastrointestinal: No Symptoms Reported Genitourinary: No Symptoms Reported Musculoskeletal: No Symptoms Reported Skin: No Symptoms Reported Neurological: Weakness, Confusion - Physical Exam Vital Signs: Temperature 99.0 F Pulse Rate [Radial] 63 Pulse Rate 70 Respiratory Rate 24 Blood Pressure [Left Arm] 188/92 Blood Pressure [Right Arm] 171/79 Blood Pressure 193/89 O2 Sat by Pulse Oximetry 98 Oriented: Not Oriented Eyes: Normal Ear: Normal Nose: Normal Respiratory: Diminished Throughout, Rhonchi Throughout, Wheezes Throughout Cardiovascular: Normal : Normal Auscultation: Bowel Sounds: Normal Palpation: Normal Tenderness: Normal Skin: Normal Musculoskeletal: Normal Psychiatric: Agitation Mood Description: Anxious Affect: Anxious Speech Pattern: Inappropriate, Delayed - Assessment/Plan (1) Multifocal pneumonia Status: Acute Plan: ADMIT, SUPPLEMENTAL OXYGEN, NORMAL SALINE AT 125ML/HR, ZOSYN 3.375G IV TID, LEVAQUIN 500MG IV DAILY, PULMICORT NEBS BID, BROVANA BID, DUONEBS TID, HALDOL 2.5MG IM Q6H PRN, ZOFRAN 4MG IV Q8H PRN, OFIRMEV 1G IV Q6H PRN, NICOTINE PATCH DAILY, AMBIEN 10MG PO HS PRN, AND HIS HOME MEDICATIONS OF NORVASC, CYMBALTA, NEXIUM, NEURONTIN, NORCO, MOTRIN, AND MOBIC WERE RESUMED. (2) Hypoxia Status: Acute (3) Sepsis Qualifiers: Sepsis type: sepsis due to unspecified organism Sepsis acute organ dysfunction status: unspecified Qualified Code(s): A41.9 - Sepsis, unspecified organism Status: Acute (4) Acute metabolic encephalopathy Status: Acute - Allergies Allergies/Adverse Reactions: Allergies Allergy/AdvReac Type Severity Reaction Status Date / Time lorazepam [From Ativan] Allergy Verified 04/21/21 01:52
[2021-04-21 12:51] VITALS: BMI 22.2
[2021-04-21] MEDS: NEURONTIN CAP 400 MG PO SCH ×2 (13:17→21:12)
[2021-04-21] MEDS: DUONEB 0.5 MG/3 MG (3 mL) NEB SCH ×2 (13:35→21:37)
[2021-04-21 15:12] LABS: CKMB % 1.9 % (<4)
[2021-04-21 15:18] LABS: CREATINE KINASE MB 6.1 ng/mL (0-4.0)
[2021-04-21 18:20] LABS: BILIRUBIN,URINE NEGATIVE (NEGATIVE); BLOOD/HEMOGLOBIN,URINE 1+ (NEGATIVE); GLUCOSE, URINE NEGATIVE (NEGATIVE); KETONES,URINE NEGATIVE (NEGATIVE); LEUKOCYTE ESTERASE ,URINE NEGATIVE (NEGATIVE); NITRITES,URINE NEGATIVE (NEGATIVE); PH,URINE 6.5 (5.0 - 8.0); PROTEIN,URINE 2+ (NEGATIVE); UROBILINOGEN,URINE NORMAL (NORMAL)
[2021-04-21 18:23] LABS: APPEARANCE,URINE CLEAR (CLEAR); COLOR,URINE YELLOW (YELLOW)
[2021-04-21 18:24] LABS: BACTERIA,URINE TRACE /HPF (NEGATIVE); SQUAMOUS EPITHELIAL CELL,UR RARE /HPF (NEGATIVE)
[2021-04-21] MEDS: AMBIEN PO PRN (20:26)
[2021-04-21 21:10] LABS: CKMB % 1.8 % (<4)
[2021-04-21 21:13] LABS: CREATINE KINASE MB 4.7 ng/mL (0-4.0)
[2021-04-22] MEDS: NS 1,000 ML IV 1,000 ML IV SCH ×4 (05:19→20:56)
[2021-04-22] MEDS: ZOSYN VIAL 3.375 GRAMS 3.375 G in NS 100 ML IV + SPIKE MINIBAG* 100 ML IV SCH ×3 (05:21→21:00)
[2021-04-22] MEDS: NEURONTIN CAP 400 MG PO SCH ×3 (05:22→21:14)
[2021-04-22 06:09] LABS: BASOPHILS % (AUTO) 0.2 % (0.2-1.0); EOSINOPHILS # (AUTO) 0.1 x10^3/uL (0.0-0.2); EOSINOPHILS % (AUTO) 0.8 % (0.9-2.9); HEMATOCRIT 37.1 % (42.0-54.0); HEMOGLOBIN 12.9 g/dL (13.5-18.0); LYMPHOCYTES # (AUTO) 1.5 X10^3/uL (1.3-2.9); LYMPHOCYTES % (AUTO) 17.5 % (21.0-51.0); MEAN CORPUSCULAR HEMOGLOBIN 31.5 pg (27.0-34.0); MEAN CORPUSCULAR HGB CONC 34.7 g/dL (33.0-35.0); MEAN CORPUSCULAR VOLUME 90.9 fL (80.0-100.0); MEAN PLATELET VOLUME 7.8 fL (7.4-11.0); MONOCYTES # (AUTO) 0.9 x10^3/uL (0.3-0.8); MONOCYTES % (AUTO) 10.7 % (0.0-13.0); NEUTROPHILS % (AUTO) 70.8 % (42.0-75.0); RED BLOOD COUNT 4.08 X10^6/uL (4.7-6.0); RED CELL DISTRIBUTION WIDTH 13.3 % (11.6-16.5); WHITE BLOOD COUNT 8.4 X10^3/uL (3.6-10.0)
[2021-04-22] MEDS: DUONEB 0.5 MG/3 MG (3 mL) NEB SCH ×3 (06:15→20:41)
[2021-04-22 06:21] LABS: ALANINE AMINOTRANSFERASE 21 Units/L (12-78); ALBUMIN 2.8 g/dL (3.4-5.0); ALKALINE PHOSPHATASE 90 Units/L (46-116); ASPARTATE AMINO TRANSFERASE 22 Units/L (15-37); BLOOD UREA NITROGEN 8 mg/dL (7-18); CALCIUM 8.5 mg/dL (8.5-10.1); CARBON DIOXIDE 26.9 mmol/L (21-32); CHLORIDE 106 mmol/L (98-107); COR CA(FOR HYPOALB) 9.5 mg/dL (8.5-10.1); COR NA(FOR HYPERGLY) 144 mmol/L (136-145); CREATININE 1.05 mg/dL (0.70-1.30); MAGNESIUM 1.5 mg/dL (1.7-2.9); SODIUM 143 mmol/L (136-145); TOTAL PROTEIN 7.2 g/dL (6.4-8.2); eGFR NON BLACK RACES > 60 (>60)
[2021-04-22] MEDS ORDERED: POTASSIUM CHLORIDE LIQ 20 MEQ UDC PO PRN (06:31)
[2021-04-22] MEDS ORDERED: KLOR-CON PO PRN (06:31)
[2021-04-22] MEDS ORDERED: K-DUR TAB 20 MEQ PO PRN (06:31)
[2021-04-22] MEDS ORDERED: K-RIDER 10 MEQ/NS 100 ML 10 MEQ/100 ML BAG IV PRN (06:31)
[2021-04-22] MEDS ORDERED: K-DUR TAB 20 MEQ PO ONE (06:34)
--- NOTE | 2021-04-22 06:40 | RAD ---
HISTORYSmall bowel obstructionSTUDYChest AP [id number]/25/2022 chest x-ray and CTA chestFINDINGSHeart is minimally enlarged. No congestive heart failure is noted. The [place] are normal. Bilateral interstitial infiltrate are slightly more prominent than on the prior examination. The ground-glass infiltrates visible on the recent CTA chest are not yet visible on plain film. No areas of consolidation or pleural effusions are identified. No pneumothorax is present. Bony thorax is unremarkable.IMPRESSIONDiffuse bilateral interstitial infiltrates slightly more prominent than on the prior examinationMinimal cardiomegaly without congestive heart failureElectronically signed by: SEAN TEJADA (Apr 22, 2021 06:39:35)
[2021-04-22] MEDS: BROVANA IN SCH ×2 (08:35→20:41)
[2021-04-22] MEDS: PULMICORT NEB TX 0.5 MG NEB SCH ×2 (08:35→20:41)
[2021-04-22] MEDS: NexIUM PO SCH (09:49)
[2021-04-22] MEDS: MICRO K EXTEN CAP 10 MEQ PO SCH (09:56)
[2021-04-22] MEDS: CYMBALTA PO SCH ×2 (09:56→21:13)
[2021-04-22] MEDS: MOBIC TAB 15 MG PO SCH (09:56)
[2021-04-22] MEDS: LEVAQUIN PREMIX IV 500 MG 500 MG/100 ML BAG IV SCH (09:56)
[2021-04-22] MEDS: NICOTINE PATCH TD SCH (09:57)
[2021-04-22] MEDS: NORVASC TAB 5 MG PO SCH ×2 (09:57→21:12)
[2021-04-22] MEDS: AMBIEN PO PRN (21:12)
[2021-04-23] MEDS ORDERED: MAGNESIUM SULFATE 1 GRAM/100 mL PREMIX 1 G/100 ML BAG IV ONE ×2 (00:14)
[2021-04-23] MEDS: MAGNESIUM SULFATE 1 GRAM/100 mL PREMIX 1 G/100 ML BAG IV PRN ×2 (00:18→01:18)
[2021-04-23] MEDS: NEURONTIN CAP 400 MG PO SCH (05:07)
[2021-04-23] MEDS: ZOSYN VIAL 3.375 GRAMS 3.375 G in NS 100 ML IV + SPIKE MINIBAG* 100 ML IV SCH (05:08)
[2021-04-23] MEDS: DUONEB 0.5 MG/3 MG (3 mL) NEB SCH (05:21)
--- NOTE | 2021-04-23 05:55 | RAD ---
PROCEDURE: Chest X-ray 1 View .HISTORY: Dyspnea.TECHNIQUE: AP view .COMPARISON: 04/22/2021.TECHNICAL QUALITY: Satisfactory .FINDINGS:Normal size heart .Mediastinum and hilar regions show no masses or lymphadenopathy .Normal central vascularity .No pulmonary consolidation, masses, pleural fluid, or pneumothorax. Resolution of the patient's interstitial prominence.No acute bony abnormality .IMPRESSION:No active cardiopulmonary disease .Electronically signed by: Sanket Dickens (Apr 23, 2021 05:53:42)
[2021-04-23 06:17] LABS: BASOPHILS % (AUTO) 0.3 % (0.2-1.0); EOSINOPHILS % (AUTO) 0.4 % (0.9-2.9); HEMOGLOBIN 13.9 g/dL (13.5-18.0); LYMPHOCYTES # (AUTO) 1.7 X10^3/uL (1.3-2.9); MEAN CORPUSCULAR HEMOGLOBIN 31.7 pg (27.0-34.0); MEAN CORPUSCULAR HGB CONC 34.8 g/dL (33.0-35.0); MEAN CORPUSCULAR VOLUME 91.1 fL (80.0-100.0); MEAN PLATELET VOLUME 7.8 fL (7.4-11.0); MONOCYTES % (AUTO) 9.9 % (0.0-13.0); NEUTROPHILS # (AUTO) 7.6 x10^3/uL (2.2-4.8); NEUTROPHILS % (AUTO) 73.4 % (42.0-75.0); RED BLOOD COUNT 4.39 X10^6/uL (4.7-6.0); RED CELL DISTRIBUTION WIDTH 12.8 % (11.6-16.5); WHITE BLOOD COUNT 10.4 X10^3/uL (3.6-10.0)
[2021-04-23 06:43] LABS: ALANINE AMINOTRANSFERASE 23 Units/L (12-78); ALBUMIN 2.8 g/dL (3.4-5.0); ALKALINE PHOSPHATASE 90 Units/L (46-116); ASPARTATE AMINO TRANSFERASE 26 Units/L (15-37); BLOOD UREA NITROGEN 4 mg/dL (7-18); CALCIUM 8.7 mg/dL (8.5-10.1); CARBON DIOXIDE 23.2 mmol/L (21-32); CHLORIDE 107 mmol/L (98-107); COR CA(FOR HYPOALB) 9.7 mg/dL (8.5-10.1); COR NA(FOR HYPERGLY) 141 mmol/L (136-145); CREATININE 0.88 mg/dL (0.70-1.30); MAGNESIUM 1.9 mg/dL (1.7-2.9); SODIUM 141 mmol/L (136-145); TOTAL PROTEIN 7.4 g/dL (6.4-8.2); eGFR NON BLACK RACES > 60 (>60)
[2021-04-23] MEDS: BROVANA IN SCH (09:35)
[2021-04-23] MEDS: PULMICORT NEB TX 0.5 MG NEB SCH (09:35)
[2021-04-23] MEDS: NS 1,000 ML IV 1,000 ML IV SCH (09:42)
[2021-04-23] MEDS: LEVAQUIN PREMIX IV 500 MG 500 MG/100 ML BAG IV SCH (09:45)
[2021-04-23] MEDS: NICOTINE PATCH TD SCH (09:46)
[2021-04-23] MEDS: MICRO K EXTEN CAP 10 MEQ PO SCH (09:54)
[2021-04-23] MEDS: NexIUM PO SCH (09:54)
[2021-04-23] MEDS: CYMBALTA PO SCH (09:54)
[2021-04-23] MEDS: NORVASC TAB 5 MG PO SCH (09:54)
[2021-04-23] MEDS: MOBIC TAB 15 MG PO SCH (09:56)
--- NOTE | 2021-04-23 10:38 | PCM.PROG ---
Progress Note - Progress Note for Day of Date of Exam: 04/22/21 - Subjective Subjective: WAS ADMITTED FOR TREATMENT OF MULTIFOCAL PNEUMONIA, HYPOXIA, AND METABOLIC ENCEPHALOPATHY. TODAY, PATIENT IS ALERT, LYING IN BED ON MORNING ROUNDS. HE ANSWERS QUESTIONS APPROPRIATELY THIS MORNING. SPOUSE DOES REPORT THAT HE HAD SOME CONFUSION THROUGHOUT THE NIGHT. PATIENT DOES REPORT GENERALIZED WEAKNESS AND SHORTNESS OF BREATH THIS MORNING. ON EXAMINATION, HEART IS REGULAR IN RATE AND RHYTHM. BILATERAL LUNGS NOTED WITH RHONCHI THROUGHOUT. ABDOMEN IS ROUND, SOFT, AND NON-TENDER WITH NORMAL BOWEL SOUNDS NOTED IN ALL QUADRANTS. HIS VITALS THIS MORNING ARE: 98.0-60-18-93%NC-167/82. LABS WERE OBTAINED. ABNORMAL LAB VALUES INCLUDE THE FOLLOWING: RBC 4.08, HGB 12.9, HCT 37.1, POTASSIUM 2.9, GLUCOSE 151, MAGNESIUM 1.5, ALBUMIN 2.8. WBC HAS RETURNED TO NORMAL RANGE. TROPONINS HAVE BEEN NORMAL. URINE AND BLOOD CULTURES ARE PENDING. CHEST XRAY OBTAINED AND REVEALED: Diffuse bilateral interstitial infiltrates slightly more prominent than on the prior examination. Minimal cardiomegaly without congestive heart failure. HE IS CURRENTLY RECEIVING NORMAL SALINE AT 125ML/HR, ZOSYN 3.375G IV TID, LEVAQUIN 500MG IV DAILY, PULMICORT NEBS BID, BROVANA BID, DUONEBS TID, HALDOL 2.5MG IM Q6H PRN, ZOFRAN 4MG IV Q8H PRN, OFIRMEV 1G IV Q6H PRN, NICOTINE PATCH DAILY, AMBIEN 10MG PO HS PRN, AND HIS HOME MEDICATIONS OF NORVASC, CYMBALTA, NEXIUM, NEURONTIN, NORCO, MOTRIN, AND MOBIC WERE RESUMED. WE WILL CONTINUE WITH CURRENT PLAN OF CARE TODAY. OTHERWISE, WE PLAN TO FOLLOW UP WITH AM LABS AND CONTINUE TO MONITOR. TIME SPENT ON CLINICAL ASSESSMENT, REVIEWING LABS AND IMAGING, DECISION MAKING, AND DOCUMENTATION WAS GREATER THAN 45 MINUTES. - Past Medical Family Social History Past Med/Fam/Surg Hx: No changes since H&P Allergies: Allergies lorazepam [From Ativan] Allergy (Verified 04/21/21 01:52) - Review of Systems ROS: No change since H&P - Vital Signs and I&O's Vital Signs: Temperature 98.9 F Pulse Rate [Radial] 65 Pulse Rate 69 Respiratory Rate 18 Blood Pressure [Left Arm] 188/92 Blood Pressure [Right Arm] 156/82 Blood Pressure 193/89 O2 Sat by Pulse Oximetry 98 Intake and Output: Intake & Output 04/20/21 04/21/21 04/22/21 04/23/21 11:59 11:59 11:59 11:59 Intake Total 389 / 389 3396 / 3396 4911 / 4911 Output Total 60 / 60 600 / 600 Balance 329 / 329 2796 / 2796 4911 / 4911 - Physical Exam Oriented: Person Eyes: Normal Ear: Normal Nose: Normal Respiratory: Generalized, Diminished, Rhonchi Cardiovascular: Normal : Normal Auscultation: Bowel Sounds: Normal Palpation: Normal Tenderness: Normal Skin: Normal Musculoskeletal: Normal Psychiatric: Agitation Mood Description: Anxious Affect: Anxious Speech Pattern: Delayed, Slurred - Laboratory and Diagnostics Result Diagrams: 04/23/21 05:35 04/23/21 05:35 Labs: 04/21/21 18:00 Urine,Clean Catch Urine Culture - Final 04/21/21 02:39 Blood Blood Culture - Preliminary 04/21/21 01:05 Blood Blood Culture - Preliminary Laboratory WBC 10.4 X10^3/uL (3.6-10.0) H 04/23/21 05:35 RBC 4.39 X10^6/uL (4.7-6.0) L 04/23/21 05:35 Hgb 13.9 g/dL (13.5-18.0) 04/23/21 05:35 Hct 40.0 % (42.0-54.0) L 04/23/21 05:35 MCV 91.1 fL (80.0-100.0) 04/23/21 05:35 MCH 31.7 pg (27.0-34.0) 04/23/21 05:35 MCHC 34.8 g/dL (33.0-35.0) 04/23/21 05:35 RDW 12.8 % (11.6-16.5) 04/23/21 05:35 Plt Count 274 X10^3/uL (150.0-450.0) 04/23/21 05:35 MPV 7.8 fL (7.4-11.0) 04/23/21 05:35 Neut % (Auto) 73.4 % (42.0-75.0) 04/23/21 05:35 Lymph % (Auto) 16.0 % (21.0-51.0) L 04/23/21 05:35 Crisp % (Auto) 9.9 % (0.0-13.0) 04/23/21 05:35 Eos % (Auto) 0.4 % (0.9-2.9) L 04/23/21 05:35 Baso % (Auto) 0.3 % (0.2-1.0) 04/23/21 05:35 Neut # (Auto) 7.6 x10^3/uL (2.2-4.8) H 04/23/21 05:35 Lymph # (Auto) 1.7 X10^3/uL (1.3-2.9) 04/23/21 05:35 [place]p # (Auto) 1.0 x10^3/uL (0.3-0.8) H 04/23/21 05:35 Eos # (Auto) 0.0 x10^3/uL (0.0-0.2) 04/23/21 05:35 Baso # (Auto) 0.0 X10^3/uL (0.0-0.1) 04/23/21 05:35 Absolute Nucleated RBC 0.1 /100WBC 04/23/21 05:35 D-Dimer 1.03 ug/ml (0.0-0.57) H* 04/20/21 20:16 Sample Site Lr 04/20/21 20:09 ABG pH 7.490 (7.35-7.45) H 04/20/21 20:09 ABG pCO2 41.0 mmHg (35.0-45.0) 04/20/21 20:09 ABG pO2 48.0 mmHg (80.0-100.0) L* 04/20/21 20:09 ABG HCO3 31.2 mmol/L (22-26) H* 04/20/21 20:09 ABG O2 Saturation 87.0 % (90-100) L 04/20/21 20:09 ABG Base Excess 7.2 mmol/L (-2.0-2.0) H 04/20/21 20:09 Kelvin Test Pos 04/20/21 20:09 A-a Gradient 50.0 mmHg 04/20/21 20:09 FiO2 21.0 04/20/21 20:09 Blood Gas Comments Enrique well sw 04/20/21 20:09 Sodium 141 mmol/L (136-145) 04/23/21 05:35 Corrected Sodium 141 mmol/L (136-145) 04/23/21 05:35 Potassium 3.4 mmol/L (3.5-5.1) L 04/23/21 05:35 Chloride 107 mmol/L (98-107) 04/23/21 05:35 Carbon Dioxide 23.2 mmol/L (21-32) 04/23/21 05:35 BUN 4 mg/dL (7-18) L 04/23/21 05:35 Creatinine 0.88 mg/dL (0.70-1.30) 04/23/21 05:35 Est GFR (MDRD) Af Amer > 60 (>60) 04/23/21 05:35 Est GFR (MDRD) Non-Af > 60 (>60) 04/23/21 05:35 Glucose 115 mg/dL (65-99) H 04/23/21 05:35 Lactic Acid 1.4 mmol/L (0.4-2.0) 04/21/21 02:39 Calcium 8.7 mg/dL (8.5-10.1) 04/23/21 05:35 Corrected Calcium 9.7 mg/dL (8.5-10.1) 04/23/21 05:35 Magnesium 1.9 mg/dL (1.7-2.9) 04/23/21 05:35 Total Bilirubin 0.40 mg/dL (0.2-1.0) 04/23/21 05:35 AST 26 Units/L (15-37) 04/23/21 05:35 ALT 23 Units/L (12-78) 04/23/21 05:35 Alkaline Phosphatase 90 Units/L (46-116) 04/23/21 05:35 Creatine Kinase 268 Units/L (39-308) 04/21/21 20:20 CK-MB (CK-2) 4.7 ng/mL (0-4.0) H* 04/21/21 20:20 CK/CKMB % Calc 1.8 % (<4) 04/21/21 20:20 Troponin I High Sens 16.0 ng/L (4.0-60.0) 04/21/21 20:20 Total Protein 7.4 g/dL (6.4-8.2) 04/23/21 05:35 Albumin 2.8 g/dL (3.4-5.0) L 04/23/21 05:35 Globulin 4.6 g/dL (2.5-4.5) H 04/23/21 05:35 Albumin/Globulin Ratio 0.6 Ratio (1.1-2.1) L 04/23/21 05:35 Specimen Type Clean catch urine 04/21/21 18:00 Urine Color Yellow (YELLOW) 04/21/21 18:00 Urine Appearance Clear (CLEAR) 04/21/21 18:00 Urine pH 6.5 (5.0 - 8.0) 04/21/21 18:00 Ur Specific [place] 1.005 (1.000-1.030) 04/21/21 18:00 Urine Protein 2+ (NEGATIVE) 04/21/21 18:00 Urine Glucose (UA) Negative (NEGATIVE) 04/21/21 18:00 Urine Ketones Negative (NEGATIVE) 04/21/21 18:00 Urine Occult Blood 1+ (NEGATIVE) 04/21/21 18:00 Urine Nitrite Negative (NEGATIVE) 04/21/21 18:00 Urine Bilirubin Negative (NEGATIVE) 04/21/21 18:00 Urine Urobilinogen Normal (NORMAL) 04/21/21 18:00 Ur Leukocyte Esterase Negative (NEGATIVE) 04/21/21 18:00 Urine RBC 3-5 /HPF (0-3) A 04/21/21 18:00 Urine WBC None seen /HPF (0-5) 04/21/21 18:00 Ur Squamous Epith Cells Rare /HPF (NEGATIVE) 04/21/21 18:00 Urine Bacteria Trace /HPF (NEGATIVE) 04/21/21 18:00 Ur Culture Indicated? No/not indicated 04/21/21 18:00 Urine Opiates Screen Negative (NEG=<300) 04/20/21 21:41 Urine Methadone Screen Negative (NEG=<300) 04/20/21 21:41 Ur Barbiturates Screen Negative (NEG=<200) 04/20/21 21:41 Ur Phencyclidine Scrn Negative (NEG=<25) 04/20/21 21:41 Ur Amphetamines Screen Negative (NEG=<1000) 04/20/21 21:41 U Benzodiazepines Scrn Negative (NEG=<200) 04/20/21 21:41 Urine Cocaine Screen Negative (NEG=<300) 04/20/21 21:41 U Marijuana (THC) Screen Negative (NEG=<50) 04/20/21 21:41 Influenza Type A Ag Negative-presumptive (NEGATIVE) 04/20/21 20:23 Influenza Type B Ag Negative-presumptive (NEGATIVE) 04/20/21 20:23 SARS CoV-2 RNA Rapid CRISTOFER Negative (NEGATIVE) 04/20/21 20:23 - Plan (1) Multifocal pneumonia Status: Acute Plan: SUPPLEMENTAL OXYGEN, NORMAL SALINE AT 125ML/HR, ZOSYN 3.375G IV TID, LEVAQUIN 500MG IV DAILY, PULMICORT NEBS BID, BROVANA BID, DUONEBS TID, HALDOL 2.5MG IM Q6H PRN, ZOFRAN 4MG IV Q8H PRN, OFIRMEV 1G IV Q6H PRN, NICOTINE PATCH DAILY, AMBIEN 10MG PO HS PRN, AND HIS HOME MEDICATIONS OF NORVASC, CYMBALTA, NEXIUM, NEURONTIN, NORCO, MOTRIN, AND MOBIC WERE RESUMED. (2) Hypoxia Status: Acute (3) Sepsis Status: Acute Qualifiers: Sepsis type: sepsis due to unspecified organism Sepsis acute organ dysfunction status: unspecified Qualified Code(s): A41.9 - Sepsis, unspecified organism (4) Acute metabolic encephalopathy Status: Acute
[2021-04-23 12:07] VITALS: BP 186/97
== END 2021-04-23 12:18 | disposition home or self-care (01) | DRG 193 ==
LOC: ER 19:41 → SUPCPDRO 04-21 01:00 → MED/SURG 04-21 01:00
PROVIDERS: ADMIT Internal Medicine; ATTEND Internal Medicine

== ENCOUNTER 2021-11-29 17:46 | Inpatient (IN) ==
[2021-11-29] MEDS ORDERED: ZOFRAN INJ 4 MG VIAL IVP ONE (18:09)
[2021-11-29] MEDS ORDERED: NS 1,000 ML IV 1,000 ML IV ONE ×2 (18:09→19:22)
[2021-11-29] MEDS ORDERED: ZOFRAN INJ 4 MG VIAL ONE (18:10)
[2021-11-29] MEDS ORDERED: NS 1,000 ML IV 1,000 ML ONE ×2 (18:10→19:25)
[2021-11-29 18:11] LABS: ABG ALLEN TEST POS; ABG BASE EXCESS 6.7 mmol/L (-2.0-2.0); ABG HCO3 31.9 mmol/L (22-26)
[2021-11-29 18:25] LABS: BASOPHILS # (AUTO) 0.1 X10^3/uL (0.0-0.1); BASOPHILS % (AUTO) 0.6 % (0.2-1.0); EOSINOPHILS # (AUTO) 0.4 x10^3/uL (0.0-0.2); EOSINOPHILS % (AUTO) 3.3 % (0.9-2.9); HEMATOCRIT 25.6 % (42.0-54.0); HEMOGLOBIN 8.8 g/dL (13.5-18.0); LYMPHOCYTES # (AUTO) 1.9 X10^3/uL (1.3-2.9); LYMPHOCYTES % (AUTO) 14.6 % (21.0-51.0); MEAN CORPUSCULAR HEMOGLOBIN 30.1 pg (27.0-34.0); MEAN CORPUSCULAR HGB CONC 34.2 g/dL (33.0-35.0); MEAN PLATELET VOLUME 7.1 fL (7.4-11.0); MONOCYTES # (AUTO) 1.4 x10^3/uL (0.3-0.8); MONOCYTES % (AUTO) 11.4 % (0.0-13.0); NEUTROPHILS # (AUTO) 8.9 x10^3/uL (2.2-4.8); NEUTROPHILS % (AUTO) 70.1 % (42.0-75.0); RED BLOOD COUNT 2.91 X10^6/uL (4.7-6.0); RED CELL DISTRIBUTION WIDTH 14.5 % (11.6-16.5); WHITE BLOOD COUNT 12.8 X10^3/uL (3.6-10.0)
[2021-11-29 18:36] LABS: ALANINE AMINOTRANSFERASE 19 Units/L (12-78); ALBUMIN 2.5 g/dL (3.4-5.0); ALKALINE PHOSPHATASE 95 Units/L (46-116); ASPARTATE AMINO TRANSFERASE 23 Units/L (15-37); BLOOD UREA NITROGEN 27 mg/dL (7-18); CALCIUM 8.3 mg/dL (8.5-10.1); CARBON DIOXIDE 31.2 mmol/L (21-32); CHLORIDE 98 mmol/L (98-107); COR CA(FOR HYPOALB) 9.5 mg/dL (8.5-10.1); COR NA(FOR HYPERGLY) 134 mmol/L (136-145); CREATININE 1.29 mg/dL (0.70-1.30); MAGNESIUM 2.1 mg/dL (1.7-2.9); SODIUM 134 mmol/L (136-145); TOTAL PROTEIN 8.9 g/dL (6.4-8.2); eGFR NON BLACK RACES 60 (>60)
[2021-11-29 19:42] LABS: BILIRUBIN,URINE NEGATIVE (NEGATIVE); BLOOD/HEMOGLOBIN,URINE NEGATIVE (NEGATIVE); GLUCOSE, URINE NEGATIVE (NEGATIVE); KETONES,URINE NEGATIVE (NEGATIVE); LEUKOCYTE ESTERASE ,URINE NEGATIVE (NEGATIVE); NITRITES,URINE NEGATIVE (NEGATIVE); PROTEIN,URINE NEGATIVE (NEGATIVE); UROBILINOGEN,URINE NORMAL (NORMAL)
[2021-11-29 19:45] LABS: APPEARANCE,URINE CLEAR (CLEAR); COLOR,URINE PALE YELLOW (YELLOW)
--- NOTE | 2021-11-29 20:03 | CT ---
HISTORYDrowsinessSTUDYCT brain without contrastCOMPARISONAugust 2021TECHNIQUEMultiple axial images of the brain were obtained from the skull base to the vertex [without] administration of IV contrast.Dose reduction techniques including Automated Exposure Control (AEC) and adjustment of mA and kV were utlized.FINDINGS[No acute intraparenchymal hemorrhage or mass can be identified.] [No extra-axial fluid collections are seen.] [No alteration in the attenuation of the brain parenchyma can be identified to suggest acute or subacute ischemic change.] Stable small vessel ischemic changes and age-appropriate atrophy are noted. [The ventricular system is symmetric and nondilated.] [The extracranial structures are grossly unremarkable.]IMPRESSION[No acute intracranial process can be identified.]Electronically signed by: JAVIER HAWKINS (Nov 29, 2021 20:01:23)
[2021-11-29 22:30] LABS: BLOOD UREA NITROGEN 26 mg/dL (7-18); CALCIUM 7.9 mg/dL (8.5-10.1); CARBON DIOXIDE 33.3 mmol/L (21-32); CHLORIDE 102 mmol/L (98-107); CREATININE 1.21 mg/dL (0.70-1.30); SODIUM 137 mmol/L (136-145); eGFR NON BLACK RACES > 60 (>60)
--- NOTE | 2021-11-29 22:31 | DR.GENAD ---
HPI Time Seen Time Seen by Provider: 11/29/21 18:20 PCP Primary Care Physician: FUENTES MOSQUEDA HPI Comment HPI Comment: According to patient had cold like symptoms over 2 weeks ago.This was then followed by nausea vomiting .He was feeling better from nausea but was feeling weak . was concerned and called his sister to persuade patient to come to [place] .On arrival his oxygen sat was in lower 80s which improved with oxygen supplementation.Pt was sleepy drowsy and arousable . Complaint/Symptoms Chief Complaint Doctors Comments: feeling weak Chief Complaint:: PT STATES HE HAS HAD A VIRUS FOR ABOUT 2-3 WKS NOW WITH NAUSEA AND PROJECTILE VOMTING PT DENIES ANY DIARRHEA AND DENIES FEVER PT STATES HE HASNT VOMITIED IN 2 DAYS BUT FEELS VERY WEAK AND IS LOSING WEIGHT. Self Treatment fo Chief Complaint: ZOFRAN COVID-19 Coronavirus risk:travel/contact w/high risk person: No Has patient experienced Coronavirus symptoms: No Nurses notes reviewed Nurses Notes Review: Yes Source History Provided: Patient and Family Member Mode of Arrival Mode of Arrival: Wheelchair Timing Onset of Chief Complaint: 11/15/21 Came on: Gradually Duration Duration: Since Onset Duration: Weeks Severity Severity: Moderate PMH PMH Past Medical History: Yes Past Medical History: COPD and Hypertension Past Surgical History: Yes Surgical History: Appendectomy, Cholecystectomy, Joint Replacement, Ortho Surgery and Other Family History History of Family Medical Conditions: Yes Family Medical History: Hypertension Social History Does patient currently use any type of tobacco product: Yes Have you used tobacco products in the last 12 months: Yes Type of Tobacco Use: Cigarettes Does any household member use tobacco: Yes Alcohol Use: None Do you use any recreational Drugs:: No Lives With: Spouse Lives Where: Home Travel Risk Coronavirus risk:travel/contact w/high risk person: No Has patient experienced Coronavirus symptoms: No Infectious screening In the last 2 months have you had wt loss of >10#?: NO Have you had fever, night sweats or hemotysis?: No Have you traveled outside the country in the last 6 months?: No Isolation: Standard ROS Review of Systems Constitutional: Malaise, Weakness, Fatigue and Loss of Appetite Eyes: No Symptoms Reported ENTM: No Symptoms Reported Respiratoy: Short of Breath Cardiovascular: Other (low heart rate ) Gastrointestinal/Abdominal: See HPI Genitourinary: No Symptoms Reported Neurological: Weakness and Dizziness Musculoskeletal: Knee Integumentary: See HPI Hematologic/Lymphatic: Anemia Psychiatric: No Symptoms Reported PE Vital Signs Vitals: Temperature 98.8 F Pulse Rate 54 Respiratory Rate 16 Blood Pressure [Left Arm] 188/92 Blood Pressure [Right Arm] 186/97 Blood Pressure 135/67 O2 Sat by Pulse Oximetry 98 General Limitations: Altered Mental Status and Other General Appearance: Lethargic Head Head Exam: Normal Inspection, Atraumatic and Normocephalic Eyes Eye exam: PERRL, EOMI and Other (pallor) ENT ENT Exam: Mucous Membranes Dry External Ear Exam: Normal External Inspection TM/Canal Exam: Bilateral: Normal Mouth Exam: Normal Inspection Neck Neck Exam: Normal Inspection and Full ROM Chest Chest Inspection: Normal Inspection and Symmetric Chest Wall Rise Respiratory Respiratory Exam: Bilateral: Clear to Auscultation Cardiovascular Cardiovascular Exam: +S1 and +S2 Abdominal Exam Abdominal Exam: Normal Bowel Sounds and Soft Extremities Extremities Exam: Other (left knee pain) Neurologic Neurological Exam: Other (drowsy ) Skin Skin Exam: Pallor MDM Additional Information Additional Information Obtained From: Old Records and Family Findings: altered mentalsatus,hypoxia ,dehydration,copd ,bradycardia COURSE Treatment Treatment: labs,ekg,ct head ,urine drug screen ,iv fluids ROR Labs Reviewed Laboratory Results Reviewed?: Yes Result Diagrams: 11/29/21 18:17 11/30/21 00:45 Laboratory: WBC 12.8 X10^3/uL (3.6-10.0) H 11/29/21 18:17 RBC 2.91 X10^6/uL (4.7-6.0) L 11/29/21 18:17 Hgb 8.8 g/dL (13.5-18.0) L 11/29/21 18:17 Hct 25.6 % (42.0-54.0) L 11/29/21 18:17 MCV 88.0 fL (80.0-100.0) 11/29/21 18:17 MCH 30.1 pg (27.0-34.0) 11/29/21 18:17 MCHC 34.2 g/dL (33.0-35.0) 11/29/21 18:17 RDW 14.5 % (11.6-16.5) 11/29/21 18:17 Plt Count 465 X10^3/uL (150.0-450.0) H 11/29/21 18:17 MPV 7.1 fL (7.4-11.0) L 11/29/21 18:17 Neut % (Auto) 70.1 % (42.0-75.0) 11/29/21 18:17 Lymph % (Auto) 14.6 % (21.0-51.0) L 11/29/21 18:17 [place] % (Auto) 11.4 % (0.0-13.0) 11/29/21 18:17 Eos % (Auto) 3.3 % (0.9-2.9) H 11/29/21 18:17 Baso % (Auto) 0.6 % (0.2-1.0) 11/29/21 18:17 Neut # (Auto) 8.9 x10^3/uL (2.2-4.8) H 11/29/21 18:17 Lymph # (Auto) 1.9 X10^3/uL (1.3-2.9) 11/29/21 18:17 [place] # (Auto) 1.4 x10^3/uL (0.3-0.8) H 11/29/21 18:17 Eos # (Auto) 0.4 x10^3/uL (0.0-0.2) H 11/29/21 18:17 Baso # (Auto) 0.1 X10^3/uL (0.0-0.1) 11/29/21 18:17 Absolute Nucleated RBC 0.0 /100WBC 11/29/21 18:17 D-Dimer 2.90 ug/ml (0.0-0.57) H 11/30/21 01:34 Sample Site Rrad 11/29/21 18:06 ABG pH 7.440 (7.35-7.45) 11/30/21 01:19 ABG pCO2 47.0 mmHg (35.0-45.0) H 11/30/21 01:19 ABG pO2 54.0 mmHg (80.0-100.0) L 11/30/21 01:19 ABG HCO3 31.9 mmol/L (22-26) H* 11/30/21 01:19 ABG O2 Saturation 89.0 % (90-100) L 11/30/21 01:19 ABG Base Excess 6.7 mmol/L (-2.0-2.0) H 11/30/21 01:19 Kelvin Test Pos 11/29/21 18:06 A-a Gradient 37.0 mmHg 11/30/21 01:19 FiO2 21.0 11/30/21 01:19 Blood Gas Comments Enrique well ms 11/29/21 18:06 Sodium 137 mmol/L (136-145) 11/30/21 00:45 Corrected Sodium TNP 11/30/21 00:45 Potassium 5.4 mmol/L (3.5-5.1) H 11/30/21 00:45 Chloride 103 mmol/L (98-107) 11/30/21 00:45 Carbon Dioxide 33.0 mmol/L (21-32) H 11/30/21 00:45 BUN 25 mg/dL (7-18) H 11/30/21 00:45 Creatinine 1.14 mg/dL (0.70-1.30) 11/30/21 00:45 Est GFR (MDRD) Af Amer > 60 (>60) 11/30/21 00:45 Est GFR (MDRD) Non-Af > 60 (>60) 11/30/21 00:45 Glucose 71 mg/dL (65-99) 11/30/21 00:45 Calcium 8.1 mg/dL (8.5-10.1) L 11/30/21 00:45 Corrected Calcium 9.5 mg/dL (8.5-10.1) 11/29/21 18:17 Magnesium 2.1 mg/dL (1.7-2.9) 11/29/21 18:17 Total Bilirubin 0.20 mg/dL (0.2-1.0) 11/29/21 18:17 AST 23 Units/L (15-37) 11/29/21 18:17 ALT 19 Units/L (12-78) 11/29/21 18:17 Alkaline Phosphatase 95 Units/L (46-116) 11/29/21 18:17 Creatine Kinase 47 Units/L (39-308) 11/30/21 00:45 Troponin I High Sens 5.7 ng/L (4.0-60.0) 11/30/21 00:45 Total Protein 8.9 g/dL (6.4-8.2) H 11/29/21 18:17 Albumin 2.5 g/dL (3.4-5.0) L 11/29/21 18:17 Globulin 6.4 g/dL (2.5-4.5) H 11/29/21 18:17 Albumin/Globulin Ratio 0.4 Ratio (1.1-2.1) L 11/29/21 18:17 Amylase 29 Units/L (25-115) 11/30/21 00:45 Lipase 14 Units/L (73-393) L 11/30/21 00:45 Specimen Type Clean catch urine 11/29/21 19:33 Urine Color Pale yellow (YELLOW) 11/29/21 19: Urine Appearance Clear (CLEAR) 11/29/21 19: Urine pH 7.0 (5.0 - 8.0) 11/29/21 19:33 Ur Specific [place] 1.005 (1.000-1.030) 11/29/21 19:33 Urine Protein Negative (NEGATIVE) 11/29/21 19:33 Urine Glucose (UA) Negative (NEGATIVE) 11/29/21 19:33 Urine Ketones Negative (NEGATIVE) 11/29/21 19:33 Urine Blood Negative (NEGATIVE) 11/29/21: Urine Nitrite Negative (NEGATIVE) 11/29/21 19: Urine Bilirubin Negative (NEGATIVE) 11/29/21 19:33 Urine Urobilinogen Normal (NORMAL) 11/29/21 19:33 Ur Leukocyte Esterase Negative (NEGATIVE) 11/29/21 19:33 Urine Opiates Screen Negative (NEG=<300) 11/29/21 19:33 Urine Methadone Screen Negative (NEG=<300) 11/29/21 19:33 Ur Barbiturates Screen Negative (NEG=<200) 11/29/21 19:33 Ur Phencyclidine Scrn Negative (NEG=<25) 11/29/21 19: Ur Amphetamines Screen Negative (NEG=<1000) 11/29/21 19:33 U Benzodiazepines Scrn Positive (NEG=<200) 11/29/21 19:33 Urine Cocaine Screen Negative (NEG=<300) 11/29/21 19:33 U Marijuana (THC) Screen Negative (NEG=<50) 11/29/21 19:33 SARS-CoV-2 (PCR) Negative (NEGATIVE) 11/29/21 19:33 Influenza Type A (PCR) Negative (NEGATIVE) 11/29/21 19:33 Influenza Type B (PCR) Negative (NEGATIVE) 11/29/21 19:33 RSV (PCR) Negative (NEGATIVE) 11/29/21 19:33 Opioid Opioid Risk Tool Age (Deejay box if 16-45): No History of Preadolescent Sexual Abuse: No Total: 0 Total Score Risk Category: Low Risk Copyright: [facility] predicting aberrant behaviors Discharge Plan Diagnosis Discharge Problem: Acute hyperkalemia, Hypoxia, COPD (chronic obstructive pulmonary disease), Bradycardia, Anemia Discharge Plan Patient Disposition: ADMITTED INPATIENT Condition: Stable Prescriptions: No Action folic acid 1 MG tablet 1 tab PO PRN PRN Label Comments: nebivolol [Bystolic] 10 mg tablet 10 mg PO DAILY budesonide 0.5 mg/2 mL Suspension For Nebulization 1 ea NEB BIDRESP Qty: 50 1RF Rx Instructions: INHALE ONE TREATMENT TWICE A DAY FOR 7 DAYS, THEN NEEDED tizanidine 4 mg tablet 1 tab PO BID meloxicam 15 mg tablet 1 tab PO QDAY gabapentin 400 mg capsule 1 cap PO TID potassium chloride 10 mEq tablet extended release 1 tab PO QDAY amlodipine 5 mg tablet 1 tab PO BID alprazolam 0.5 mg tablet 1 tab PO BID PRN esomeprazole magnesium 40 mg capsule,delayed release(DR/EC) 1 cap PO QDAY zolpidem 10 mg tablet 1 tab PO QPM PRN duloxetine 60 mg capsule,delayed release(DR/EC) 2 cap PO QDAY nebivolol 10 mg tablet 1 tab PO QDAY PRN ipratropium-albuterol [ipratropium-albuterol] 3 ML solution for nebulization 1 neb NEB TID PRN Rx Instructions: INHALE ONE TREATMENT THREE TIMES A DAY FOR 7 DAYS, THEN NEEDED tadalafil 5 mg Tablet 5 mg PO DIRECTED PRN ibuprofen 800 mg Tablet 800 mg PO PRN PRN oxycodone-acetaminophen 10-325 mg Tablet 1 tab PO PRN PRN Health Concerns: Post Hospitalization: new medications and changes needed to prevent readmission or further decline. Pt educated and given instructions on all concerns. Plan of Treatment: Continue with present treatment and follow up plan. Pt is to keep follow up appointment as instructed and take medications as ordered. Orders to Discharge Patient Discharge Orders: Transfer (Routine); Ordered 11/30/21 Ordered By: Matheus Hilton Follow ups/Referrals Follow ups/Referrals: Micah Real [Primary Care Provider] - 3 days Instructions Stand Alone Forms: [facility], Patient Portal, Social Distancing ADDITIONAL NOTES Additional Notes Additional Notes: pts mentation improved with IV fluids,he was noted to hyperkalemia with peaked t wave .given calcium gluconate followed by insulin with d50.ser potassium improbed .d dmer elevated cxr normal cta neg .Pt cont to have hypoxia wion room air spoke with Dr Padilla.Will admit patient to be seen by Dr Real in am
[2021-11-29] MEDS ORDERED: CALCIUM GLUCONATE 10% 1 G in NS 100 ML IV 100 ML IV ONE (22:44)
[2021-11-29] MEDS ORDERED: NS 100 ML IV 100 ML ONE (22:47)
[2021-11-29] MEDS ORDERED: D50W ABBOJECT SYR IV ONE (23:32)
[2021-11-29] MEDS ORDERED: NovoLIN R (or HumuLIN R) IV ONE (23:33)
[2021-11-29] MEDS ORDERED: D50W ABBOJECT SYR ONE (23:34)
[2021-11-29] MEDS ORDERED: NovoLIN R (or HumuLIN R) ONE ×2 (23:35→23:41)
[2021-11-30 01:05] LABS: BLOOD UREA NITROGEN 25 mg/dL (7-18); CALCIUM 8.1 mg/dL (8.5-10.1); CHLORIDE 103 mmol/L (98-107); CREATININE 1.14 mg/dL (0.70-1.30); SODIUM 137 mmol/L (136-145); eGFR NON BLACK RACES > 60 (>60)
--- NOTE | 2021-11-30 01:05 | RAD ---
STUDY: FRONTAL VIEW CHESTCOMPARISON: April 20, 2021HISTORY: PT C/O NAUSEA/VOMITING X 2-3 WKS, WEIGHT LOSS AND WEAKNESS; HYPOXIAFINDINGS:Subsegmental atelectasis is noted.No focal consolidation is seen.The heart size is within normal limits.The mediastinum is unremarkable.There is no evidence of pleural effusion or gross pneumothorax.The trachea is midline.IMPRESSION:1. No focal consolidation is seen.2. The heart size is normal.Electronically signed by: Gonzalo Mckeon (Nov 30, 2021 01:03:22)
[2021-11-30 01:24] LABS: ABG BASE EXCESS 6.7 mmol/L (-2.0-2.0)
[2021-11-30 01:26] LABS: ABG HCO3 31.9 mmol/L (22-26)
[2021-11-30 01:43] LABS: AMYLASE 29 Units/L (25-115); LIPASE 14 Units/L (73-393)
--- NOTE | 2021-11-30 03:31 | CT ---
STUDY: CTA CHEST WITH CONTRASTCOMPARISON: NoneTECHNIQUE: axial images were acquired of the chest with IV contrast for a CT angiogram. Coronal and sagittal images were provided. All images were reviewed in a variety of windows and levels. 3D 8 mm thick MIPS images were provided.RADIATION REDUCTION TECHNIQUE: Automated exposure control, Adjustment of the mA and/or kV according to patient size, or iterative reconstruction techniques were used. 8 mm thick axial MIPS images were provided.HISTORY: PT C/O N/V X 2-3 WEEKS; HYPOXIA; ELEVATED D DIMERCHEST:THYROID GLAND: The thyroid gland is unremarkable.HEART AND VESSELS: The heart size is within normal limits. There is no evidence of a pericardial effusion. The thoracic aorta is normal in size without evidence of aneurysm or dissection. The main pulmonary artery size is within normal limits. There are no filling defects seen in the visualized pulmonary arteries to suggest a pulmonary embolism.LYMPHNODES: There is no evidence of axillary, mediastinal, or hilar lymphadenopathy,AIRWAY: The trachea and mainstem bronchi are patent. No intraluminal lesions are seen.LUNGS: Dependent atelectatic changes are noted. Focal consolidation is also seen in left lower lobe. Focus of conglomeration of ground-glass opacities are seen in the right midlung zone. Bronchiectasis is noted. No pleural effusion is seen. No evidence of pneumothorax. Scattered foci of ground-glass opacity seen in the left upper lung zone..There is no evidence of consolidation, pleural effusion, or pneumothorax.ESOPHAGUS: The esophagus is grossly unremarkable.BONES: The visualized bones demonstrate degenerative changes. There are no concerning lytic or blastic lesions identified.UPPER ABDOMINAL STRUCTURES: The visualized portions of the upper abdominal structures are unremarkable.IMPRESSION:1. No evidence of pulmonary embolism, thoracic aortic aneurysm, or dissection2. Heart size is normal and there is no evidence of pericardial effusion3. Focus consolidation is seen in left lower lobe with conglomeration of ground-glass opacities in the right midlung zone and left upper lung zone. This may represent acute or chronic airspace disease and therefore follow-up may be obtained as clinically indicated.Electronically signed by: Gonzalo Mckeon (Nov 30, 2021 03:30:04)
[2021-11-30] MEDS: DUONEB 0.5 MG/3 MG (3 mL) NEB PRN ×2 (05:40→20:00)
[2021-11-30 06:38] LABS: BASOPHILS % (AUTO) 0.3 % (0.2-1.0); EOSINOPHILS # (AUTO) 0.4 x10^3/uL (0.0-0.2); EOSINOPHILS % (AUTO) 3.2 % (0.9-2.9); HEMATOCRIT 26.8 % (42.0-54.0); HEMOGLOBIN 8.8 g/dL (13.5-18.0); LYMPHOCYTES # (AUTO) 1.9 X10^3/uL (1.3-2.9); LYMPHOCYTES % (AUTO) 15.9 % (21.0-51.0); MEAN CORPUSCULAR HEMOGLOBIN 29.1 pg (27.0-34.0); MEAN CORPUSCULAR HGB CONC 32.9 g/dL (33.0-35.0); MEAN CORPUSCULAR VOLUME 88.5 fL (80.0-100.0); MEAN PLATELET VOLUME 7.5 fL (7.4-11.0); MONOCYTES # (AUTO) 1.1 x10^3/uL (0.3-0.8); MONOCYTES % (AUTO) 9.1 % (0.0-13.0); NEUTROPHILS # (AUTO) 8.4 x10^3/uL (2.2-4.8); NEUTROPHILS % (AUTO) 71.5 % (42.0-75.0); RED BLOOD COUNT 3.03 X10^6/uL (4.7-6.0); RED CELL DISTRIBUTION WIDTH 14.5 % (11.6-16.5); WHITE BLOOD COUNT 11.8 X10^3/uL (3.6-10.0)
[2021-11-30 06:50] LABS: BLOOD UREA NITROGEN 25 mg/dL (7-18); CALCIUM 8.7 mg/dL (8.5-10.1); CHLORIDE 100 mmol/L (98-107); CREATININE 1.17 mg/dL (0.70-1.30); SODIUM 135 mmol/L (136-145); eGFR NON BLACK RACES > 60 (>60)
[2021-11-30 07:08] LABS: ABG ALLEN TEST POS
[2021-11-30] MEDS: PULMICORT NEB TX 0.5 MG NEB SCH ×2 (08:30→20:00)
--- NOTE | 2021-11-30 08:40 | DR.H&P ---
H&P History & Physical for Day of: H&P Date: 11/30/21 Chief Complaint Chief Complaint: Confusion Hypoxia Allergies Allergies Allergy/AdvReac Type Severity Reaction Status Date / Time lorazepam [From Ativan] Allergy Verified 04/21/21 01:52 History of Present Illness History of Present Illness: Pt is a 65 year old male past medical history of COPD, Hypertension, presenting with nausea and a "cold" over the weekend. Per , pt has been feeling weak and became a little confused. In the ED, he was found to be hypoxic and started on supplemental oxygen. Labs/imaging: Wbc 11.8, Hgb 8.8, Plt 500, Na 135, K 5.9, Creatinine 1.17, Glucose 84, UA negative, UDS:+Benzodiazepine (pt does take at home), COVID-19/Flu/RSV negative, D-dimer 2.90, ABG: pH 7.44, pCO2 47, pO2 54, HCO3 31, O2sat 89%, CT brain: no acute intracranial findings, CXR: no acute cardiopulmonary findings. CTA chest was obtained that revealed:1. No evidence of pulmonary embolism, thoracic aortic an eurysm, or dissection. 2. Heart size is normal and there is no evidence of pericardial effusion. 3. Focus consolidation is seen in left lower lobe with conglomeration of ground-glass opacities in the right midlung zone and left upper lung zone. This may represent acute or chronic airspace disease and therefore follow-up may be obtained as clinically indicated. Pt was admitted and hypoxia likely due to COPD exacerbation treated with supplemental oxygen and azithromycin. Continue with IVF and bronchodilators. Resume home medications except potassium supplements. Pt did have hyperkalemia on labs, will give kayexalate x 1 dose and repeat BMP this afternoon. Continue to closely monitor and follow up labs. Past Medical History Past Medical History: COPD and Hypertension Additional Medical History: Muscle Weakness, Chronic Neck and Back pain, PANCREATITIS Past Surgical History Surgical History: Appendectomy, Cholecystectomy, Joint Replacement, Ortho Surgery and Other Family History Family Medical History: Diabetes Mellitus, Coronary Artery Disease and Hypertension Social History Does patient currently use any type of tobacco product: Yes Have you used tobacco products in the last 12 months: Yes Type of Tobacco Use: Cigarettes How many years tobacco product used: 41 Does any household member use tobacco: Yes Alcohol Use: None Medications Home Medications: lorazepam [From Ativan] Allergy (Verified 04/21/21 01:52) CONTINUE taking the following medications alprazolam 0.5 mg tablet 1 tab PO BID PRN 11/29/21 [History] amlodipine 5 mg tablet 1 tab PO BID 11/29/21 [History] duloxetine 60 mg capsule,delayed release 2 cap PO QDAY 11/29/21 [History] esomeprazole magnesium 40 mg capsule,delayed release 1 cap PO QDAY 11/29/21 [History] gabapentin 400 mg capsule 1 cap PO TID 11/29/21 [History] ipratropium 0.5 mg-albuterol 3 mg (2.5 mg base)/3 mL nebulization soln 1 neb NEB TID PRN 11/29/21 [History] meloxicam 15 mg tablet 1 tab PO QDAY 11/29/21 [History] nebivolol 10 mg tablet 1 tab PO QDAY PRN 11/29/21 [History] potassium chloride 10 mEq tablet,extended release 1 tab PO QDAY 11/29/21 [History] tizanidine 4 mg tablet 1 tab PO BID 11/29/21 [History] zolpidem 10 mg tablet 1 tab PO QPM PRN 11/29/21 [History] Labs Result Diagrams: 12/01/21 07:56 12/01/21 07:56 Labs: Laboratory WBC 11.8 X10^3/uL (3.6-10.0) H 11/30/21 05:01 RBC 3.03 X10^6/uL (4.7-6.0) L 11/30/21 05:01 Hgb 8.8 g/dL (13.5-18.0) L 11/30/21 05:01 Hct 26.8 % (42.0-54.0) L 11/30/21 05:01 MCV 88.5 fL (80.0-100.0) 11/30/21 05:01 MCH 29.1 pg (27.0-34.0) 11/30/21 05:01 MCHC 32.9 g/dL (33.0-35.0) L 11/30/21 05:01 RDW 14.5 % (11.6-16.5) 11/30/21 05:01 Plt Count 500 X10^3/uL (150.0-450.0) H 11/30/21 05:01 MPV 7.5 fL (7.4-11.0) 11/30/21 05:01 Neut % (Auto) 71.5 % (42.0-75.0) 11/30/21 05:01 Lymph % (Auto) 15.9 % (21.0-51.0) L 11/30/21 05:01 [place] % (Auto) 9.1 % (0.0-13.0) 11/30/21 05:01 Eos % (Auto) 3.2 % (0.9-2.9) H 11/30/21 05:01 Baso % (Auto) 0.3 % (0.2-1.0) 11/30/21 05:01 Neut # (Auto) 8.4 x10^3/uL (2.2-4.8) H 11/30/21 05:01 Lymph # (Auto) 1.9 X10^3/uL (1.3-2.9) 11/30/21 05:01 [place] # (Auto) 1.1 x10^3/uL (0.3-0.8) H 11/30/21 05:01 Eos # (Auto) 0.4 x10^3/uL (0.0-0.2) H 11/30/21 05:01 Baso # (Auto) 0.0 X10^3/uL (0.0-0.1) 11/30/21 05:01 Absolute Nucleated RBC 0.0 /100WBC 11/30/21 05:01 D-Dimer 2.90 ug/ml (0.0-0.57) H 11/30/21 01:34 Sample Site [place] 11/30/21 01:19 ABG pH 7.440 (7.35-7.45) 11/30/21 01:19 ABG pCO2 47.0 mmHg (35.0-45.0) H 11/30/21 01:19 ABG pO2 54.0 mmHg (80.0-100.0) L 11/30/21 01:19 ABG HCO3 31.9 mmol/L (22-26) H* 11/30/21 01:19 ABG O2 Saturation 89.0 % (90-100) L 11/30/21 01:19 ABG Base Excess 6.7 mmol/L (-2.0-2.0) H 11/30/21 01:19 Kelvin Test Pos 11/30/21 01:19 A-a Gradient 37.0 mmHg 11/30/21 01:19 FiO2 21.0 11/30/21 01:19 Blood Gas Comments Pt caden well mt 11/30/21 01:19 Sodium 135 mmol/L (136-145) L 11/30/21 05:01 Corrected Sodium TNP 11/30/21 05:01 Potassium 5.9 mmol/L (3.5-5.1) H 11/30/21 05:01 Chloride 100 mmol/L (98-107) 11/30/21 05:01 Carbon Dioxide 31.0 mmol/L (21-32) 11/30/21 05:01 BUN 25 mg/dL (7-18) H 11/30/21 05:01 Creatinine 1.17 mg/dL (0.70-1.30) 11/30/21 05:01 Est GFR (MDRD) Af Amer > 60 (>60) 11/30/21 05:01 Est GFR (MDRD) Non-Af > 60 (>60) 11/30/21 05:01 Glucose 84 mg/dL (65-99) 11/30/21 05:01 Calcium 8.7 mg/dL (8.5-10.1) 11/30/21 05:01 Corrected Calcium 9.5 mg/dL (8.5-10.1) 11/29/21 18:17 Magnesium 2.1 mg/dL (1.7-2.9) 11/29/21 18:17 Total Bilirubin 0.20 mg/dL (0.2-1.0) 11/29/21 18:17 AST 23 Units/L (15-37) 11/29/21 18:17 ALT 19 Units/L (12-78) 11/29/21 18:17 Alkaline Phosphatase 95 Units/L (46-116) 11/29/21 18:17 Creatine Kinase 47 Units/L (39-308) 11/30/21 00:45 Troponin I High Sens 5.7 ng/L (4.0-60.0) 11/30/21 00:45 Total Protein 8.9 g/dL (6.4-8.2) H 11/29/21 18:17 Albumin 2.5 g/dL (3.4-5.0) L 11/29/21 18:17 Globulin 6.4 g/dL (2.5-4.5) H 11/29/21 18:17 Albumin/Globulin Ratio 0.4 Ratio (1.1-2.1) L 11/29/21 18:17 Amylase 29 Units/L (25-115) 11/30/21 00:45 Lipase 14 Units/L (73-393) L 11/30/21 00:45 Specimen Type Clean catch urine 11/29/21 19:33 Urine Color Pale yellow (YELLOW) 11/29/21 19: Urine Appearance Clear (CLEAR) 11/29/21 19: Urine pH 7.0 (5.0 - 8.0) 11/29/21 19: Ur Specific [place] 1.005 (1.000-1.030) 11/29/21 19:33 Urine Protein Negative (NEGATIVE) 11/29/21 19:33 Urine Glucose (UA) Negative (NEGATIVE) 11/29/21 19:33 Urine Ketones Negative (NEGATIVE) 11/29/21 19: Urine Blood Negative (NEGATIVE) 11/29/21: Urine Nitrite Negative (NEGATIVE) 11/29/21 19: Urine Bilirubin Negative (NEGATIVE) 11/29/21 19:33 Urine Urobilinogen Normal (NORMAL) 11/29/21 19:33 Ur Leukocyte Esterase Negative (NEGATIVE) 11/29/21 19:33 Urine Opiates Screen Negative (NEG=<300) 11/29/21 19:33 Urine Methadone Screen Negative (NEG=<300) 11/29/21 19:33 Ur Barbiturates Screen Negative (NEG=<200) 11/29/21 19:33 Ur Phencyclidine Scrn Negative (NEG=<25) 11/29/21 19: Ur Amphetamines Screen Negative (NEG=<1000) 11/29/21 19: U Benzodiazepines Scrn Positive (NEG=<200) 11/29/21 19: Urine Cocaine Screen Negative (NEG=<300) 11/29/21 19:33 U Marijuana (THC) Screen Negative (NEG=<50) 11/29/21 19:33 SARS-CoV-2 (PCR) Negative (NEGATIVE) 11/29/21 19:33 Influenza Type A (PCR) Negative (NEGATIVE) 11/29/21 19:33 Influenza Type B (PCR) Negative (NEGATIVE) 11/29/21 19:33 RSV (PCR) Negative (NEGATIVE) 11/29/21 19:33 Review of Systems Constitutional: Weakness Eyes: No Symptoms Reported ENT: No Symptoms Reported Respiratory: Shortness of Breath Cardiovascular: No Symptoms Reported Gastrointestinal: No Symptoms Reported Genitourinary: No Symptoms Reported Musculoskeletal: No Symptoms Reported Skin: No Symptoms Reported Neurological: No Symptoms Reported Physical Exam Vital Signs: Temperature 98.8 F Pulse Rate [Right] 68 Pulse Rate 60 Respiratory Rate 18 Blood Pressure [Left Arm] 188/92 Blood Pressure [Right Arm] 135/62 Blood Pressure 161/83 O2 Sat by Pulse Oximetry 97 Oriented: Normal Eyes: Normal Ear: Normal Nose: Normal Throat: Normal Respiratory: Diminished Throughout Cardiovascular: Normal : Normal Auscultation: Bowel Sounds: Normal Palpation: Normal Tenderness: Normal Skin: Normal Musculoskeletal: Normal Psychiatric: Normal Mood Description: Calm and Appropriate Affect: Normal Speech Pattern: Clear Assessment/Plan (1) COPD (chronic obstructive pulmonary disease): Narrative Support Text: Supplemental oxygen Bronchodilators scheduled Status: Acute (2) Hypoxia: Status: Acute (3) Acute hyperkalemia: Status: Acute Review H&P Reviewed: Yes Patient was examined?: Yes
[2021-11-30] MEDS: NEBIVOLOL 10 MG PO SCH (09:28)
[2021-11-30] MEDS: CYMBALTA PO SCH (10:04)
[2021-11-30] MEDS: NexIUM PO SCH (10:07)
[2021-11-30] MEDS: NORVASC TAB 5 MG PO SCH ×2 (10:07→21:32)
[2021-11-30] MEDS: LOVENOX INJ 40 MG SYR SC SCH (10:26)
[2021-11-30] MEDS ORDERED: KAYEXALATE SUSP PO NR (11:00)
[2021-11-30] MEDS: NORCO 5/325 MG TAB PO PRN (11:00)
[2021-11-30 14:23] VITALS: BMI 22.2
[2021-11-30 17:46] LABS: BLOOD UREA NITROGEN 22 mg/dL (7-18); CALCIUM 8.3 mg/dL (8.5-10.1); CARBON DIOXIDE 30.6 mmol/L (21-32); CHLORIDE 100 mmol/L (98-107); CREATININE 1.16 mg/dL (0.70-1.30); SODIUM 134 mmol/L (136-145); eGFR NON BLACK RACES > 60 (>60)
[2021-11-30] MEDS ORDERED: SNACK - Diabetic Appropriate PO SCH (20:00)
[2021-12-01] MEDS: NORCO 5/325 MG TAB PO PRN ×2 (01:06→08:46)
[2021-12-01] MEDS ORDERED: AMBIEN PO PRN (01:07)
[2021-12-01] MEDS: PULMICORT NEB TX 0.5 MG NEB SCH (08:08)
[2021-12-01 08:26] LABS: BASOPHILS % (AUTO) 0.2 % (0.2-1.0); EOSINOPHILS # (AUTO) 0.1 x10^3/uL (0.0-0.2); EOSINOPHILS % (AUTO) 1.1 % (0.9-2.9); HEMATOCRIT 24.5 % (42.0-54.0); HEMOGLOBIN 8.5 g/dL (13.5-18.0); LYMPHOCYTES # (AUTO) 1.8 X10^3/uL (1.3-2.9); LYMPHOCYTES % (AUTO) 17.3 % (21.0-51.0); MEAN CORPUSCULAR HEMOGLOBIN 30.2 pg (27.0-34.0); MEAN CORPUSCULAR HGB CONC 34.6 g/dL (33.0-35.0); MEAN CORPUSCULAR VOLUME 87.5 fL (80.0-100.0); MEAN PLATELET VOLUME 6.9 fL (7.4-11.0); MONOCYTES % (AUTO) 9.4 % (0.0-13.0); NEUTROPHILS # (AUTO) 7.6 x10^3/uL (2.2-4.8); RED CELL DISTRIBUTION WIDTH 14.4 % (11.6-16.5); WHITE BLOOD COUNT 10.5 X10^3/uL (3.6-10.0)
[2021-12-01] MEDS: LOVENOX INJ 40 MG SYR SC SCH (08:36)
[2021-12-01] MEDS: NexIUM PO SCH (08:37)
[2021-12-01] MEDS: CYMBALTA PO SCH (08:37)
[2021-12-01] MEDS: NORVASC TAB 5 MG PO SCH (08:37)
[2021-12-01] MEDS ORDERED: ROCEPHIN VIAL 1 GRAM 1 G in NS 100 ML IV 100 ML IV SCH (08:41)
[2021-12-01 08:42] LABS: ALANINE AMINOTRANSFERASE 16 Units/L (12-78); ALBUMIN 2.3 g/dL (3.4-5.0); ALKALINE PHOSPHATASE 89 Units/L (46-116); ASPARTATE AMINO TRANSFERASE 23 Units/L (15-37); BLOOD UREA NITROGEN 17 mg/dL (7-18); CALCIUM 8.1 mg/dL (8.5-10.1); CARBON DIOXIDE 28.8 mmol/L (21-32); CHLORIDE 102 mmol/L (98-107); COR CA(FOR HYPOALB) 9.5 mg/dL (8.5-10.1); COR NA(FOR HYPERGLY) 138 mmol/L (136-145); SODIUM 137 mmol/L (136-145); TOTAL PROTEIN 8.4 g/dL (6.4-8.2); eGFR NON BLACK RACES > 60 (>60)
[2021-12-01] MEDS ORDERED: ZITHROMAX TAB 250 MG PO ONE (09:26)
[2021-12-01] MEDS: NEBIVOLOL 10 MG PO SCH (09:29)
[2021-12-01 12:07] VITALS: BP 119/70
--- NOTE | 2021-12-01 20:05 | W.DIS.FURT ---
Summary of Discharge Discharge Summary of Date Date of Exam: 12/01/21 Admission Date Date of Admission: 11/29/21 Admission Diagnosis Patient Problems (Updated 12/01/21 @ 13:52 by Tracy Ramos) Acute hyperkalemia (Acute) E87.5 Hypoxia (Acute) R09.02 COPD (chronic obstructive pulmonary disease) (Acute) J44.9 Bradycardia (Acute) R00.1 Anemia (Acute) D64.9 Hospital Course: Pt is a 65 year old male past medical history of COPD, Hypertension, admitted for COPD exacerbation and acute hyperkalemia. His hospital/treament course included: Supplemental oxygen via nasal cannula, Antibiotics: Azithromycin, scheduled bronchodilators, and kayexelate for hyperkalemia. Labs/imaging: Wbc 10.5, Hgb 8.5, Plt 458, Na 134, K 5.4, Creatinine 1.16, Glucose 101, CT brain: no acute intracranial findings, CXR: no acute cardiopulmonary findings. CTA chest was obtained that revealed:1. No evidence of pulmonary embolism, thoracic aortic aneurysm, or dissection. 2. Heart size is normal and there is no evidence of pericardial effusion. 3. Focus consolidation is seen in left lower lobe with conglomeration of ground-glass opacities in the right midlung zone and left upper lung zone. This may represent acute or chronic airspace disease and therefore follow-up may be obtained as clinically indicated. Pt responded well to treatments. On day of discharge, pt was was alert and oriented x 3. He was also adamant about leaving the hospital even if AMA and his also supportive the narrative that she would not be able to convince him to stay or stop him. However, patient is stable and back to baseline. He was not requiring oxygen when I saw this morning but did require ambulatory oxygen on evaluation. He has been prescribed home oxygen before and has been non-compliant. Will send him home on home oxygen and set up physical therapy. Instructed to discontinue potassium supplementation. Rx Z-pack to complete antibiotic course. No wheezing on auscultation, no steroids indicated at this time, continue bronchodilators prn at home. Pt discharged in stable condition, instructed to follow up with pcp in 1 week. Vital Signs: Vital Signs (72 hours) 11/29/21 17:53 11/29/21 18:05 11/29/21 18:15 Temperature 98.8 F Pulse Rate 67 59 L 56 L Pulse Rate [Right] Respiratory Rate 18 17 20 Blood Pressure 106/58 Blood Pressure [Left Arm] Blood Pressure [Right Arm] O2 Sat by Pulse Oximetry 86 L 88 L Oxygen Delivery Method Room Air Oxygen Flow Rate FIO2% 11/29/21 18:06 11/29/21 18:30 11/29/21 18:30 Temperature Pulse Rate 61 Pulse Rate [Right] Respiratory Rate 19 Blood Pressure 112/60 Blood Pressure [Left Arm] Blood Pressure [Right Arm] O2 Sat by Pulse Oximetry Oxygen Delivery Method Nasal Cannula Oxygen Flow Rate 2 FIO2% 28 11/29/21 18:45 11/29/21 18:58 11/29/21 19:00 Temperature Pulse Rate 63 62 Pulse Rate [Right] Respiratory Rate 17 18 Blood Pressure 118/58 Blood Pressure [Left Arm] Blood Pressure [Right Arm] O2 Sat by Pulse Oximetry 92 L Oxygen Delivery Method Oxygen Flow Rate FIO2% 11/29/21 19:01 11/29/21 19:15 11/29/21 19:30 Temperature Pulse Rate 61 65 63 Pulse Rate [Right] Respiratory Rate 18 11 L 16 Blood Pressure Blood Pressure [Left Arm] Blood Pressure [Right Arm] O2 Sat by Pulse Oximetry 94 L 91 L 91 L Oxygen Delivery Method Oxygen Flow Rate FIO2% 11/29/21 19:31 11/29/21 19:31 11/29/21 19:31 Temperature Pulse Rate 60 Pulse Rate [Right] Respiratory Rate 17 Blood Pressure 115/83 115/83 Blood Pressure [Left Arm] Blood Pressure [Right Arm] O2 Sat by Pulse Oximetry 90 L Oxygen Delivery Method Oxygen Flow Rate FIO2% 11/29/21 19:31 11/29/21 19:50 11/29/21 20:00 Temperature Pulse Rate 60 57 L Pulse Rate [Right] Respiratory Rate 17 19 Blood Pressure 109/51 Blood Pressure [Left Arm] Blood Pressure [Right Arm] O2 Sat by Pulse Oximetry 90 L 90 L Oxygen Delivery Method Oxygen Flow Rate FIO2% 11/29/21 20:00 11/29/21 20:15 11/29/21 20:30 Temperature Pulse Rate 56 L 59 L Pulse Rate [Right] Respiratory Rate 16 16 Blood Pressure 101/51 Blood Pressure [Left Arm] Blood Pressure [Right Arm] O2 Sat by Pulse Oximetry 91 L 91 L Oxygen Delivery Method Oxygen Flow Rate FIO2% 11/29/21 20:30 11/29/21 20:45 11/29/21 21:02 Temperature Pulse Rate 63 58 L 54 L Pulse Rate [Right] Respiratory Rate 13 15 15 Blood Pressure Blood Pressure [Left Arm] Blood Pressure [Right Arm] O2 Sat by Pulse Oximetry 95 93 L Oxygen Delivery Method Oxygen Flow Rate FIO2% 11/29/21 21:15 11/29/21 21:30 11/29/21 21:30 Temperature Pulse Rate 57 L 55 L Pulse Rate [Right] Respiratory Rate 17 17 Blood Pressure 124/58 Blood Pressure [Left Arm] Blood Pressure [Right Arm] O2 Sat by Pulse Oximetry 93 L Oxygen Delivery Method Oxygen Flow Rate FIO2% 11/29/21 21:45 11/29/21 22:00 11/29/21 22:01 Temperature Pulse Rate 58 L 55 L Pulse Rate [Right] Respiratory Rate 18 14 Blood Pressure 118/64 Blood Pressure [Left Arm] Blood Pressure [Right Arm] O2 Sat by Pulse Oximetry 93 L 95 Oxygen Delivery Method Oxygen Flow Rate FIO2% 11/29/21 22:02 11/29/21 22:15 11/29/21 22:30 Temperature Pulse Rate 59 L 52 L 52 L Pulse Rate [Right] Respiratory Rate 13 13 17 Blood Pressure Blood Pressure [Left Arm] Blood Pressure [Right Arm] O2 Sat by Pulse Oximetry 94 L 94 L 95 Oxygen Delivery Method Oxygen Flow Rate FIO2% 11/29/21 22:33 11/29/21 22:33 11/29/21 22:45 Temperature Pulse Rate 54 L 62 Pulse Rate [Right] Respiratory Rate 18 19 Blood Pressure 127/62 Blood Pressure [Left Arm] Blood Pressure [Right Arm] O2 Sat by Pulse Oximetry 95 91 L Oxygen Delivery Method Oxygen Flow Rate FIO2% 11/29/21 23:00 11/29/21 23:01 11/29/21 23:01 Temperature Pulse Rate 52 L 51 L Pulse Rate [Right] Respiratory Rate 14 16 Blood Pressure 126/61 Blood Pressure [Left Arm] Blood Pressure [Right Arm] O2 Sat by Pulse Oximetry 94 L 94 L Oxygen Delivery Method Oxygen Flow Rate FIO2% 11/29/21 23:15 11/29/21 23:30 11/29/21 23:31 Temperature Pulse Rate 56 L 52 L Pulse Rate [Right] Respiratory Rate 17 17 Blood Pressure 120/58 Blood Pressure [Left Arm] Blood Pressure [Right Arm] O2 Sat by Pulse Oximetry 96 Oxygen Delivery Method Oxygen Flow Rate FIO2% 11/29/21 23:31 11/29/21 23:45 11/29/21 23:59 Temperature Pulse Rate 50 L 51 L 52 L Pulse Rate [Right] Respiratory Rate 18 17 14 Blood Pressure Blood Pressure [Left Arm] Blood Pressure [Right Arm] O2 Sat by Pulse Oximetry Oxygen Delivery Method Oxygen Flow Rate FIO2% 11/30/21 00:00 11/30/21 00:03 11/30/21 00:15 Temperature Pulse Rate 54 L 58 L Pulse Rate [Right] Respiratory Rate 17 19 Blood Pressure 102/59 Blood Pressure [Left Arm] Blood Pressure [Right Arm] O2 Sat by Pulse Oximetry Oxygen Delivery Method Oxygen Flow Rate FIO2% 11/30/21 00:30 11/30/21 00:30 11/30/21 00:45 Temperature Pulse Rate 62 60 Pulse Rate [Right] Respiratory Rate 19 14 Blood Pressure 110/58 Blood Pressure [Left Arm] Blood Pressure [Right Arm] O2 Sat by Pulse Oximetry 92 L Oxygen Delivery Method Oxygen Flow Rate FIO2% 11/30/21 01:00 11/30/21 01:01 11/30/21 01:17 Temperature Pulse Rate 56 L 58 L Pulse Rate [Right] Respiratory Rate 13 11 L Blood Pressure 99/53 Blood Pressure [Left Arm] Blood Pressure [Right Arm] O2 Sat by Pulse Oximetry 93 L Oxygen Delivery Method Oxygen Flow Rate FIO2% 11/30/21 01:29 11/30/21 01:30 11/30/21 01:32 Temperature Pulse Rate 55 L 56 L Pulse Rate [Right] Respiratory Rate 17 17 Blood Pressure 137/63 Blood Pressure [Left Arm] Blood Pressure [Right Arm] O2 Sat by Pulse Oximetry 96 97 Oxygen Delivery Method Oxygen Flow Rate FIO2% 11/30/21 01:46 11/30/21 02:00 11/30/21 02:00 Temperature Pulse Rate 58 L 60 Pulse Rate [Right] Respiratory Rate 15 16 Blood Pressure 125/61 Blood Pressure [Left Arm] Blood Pressure [Right Arm] O2 Sat by Pulse Oximetry 98 98 Oxygen Delivery Method Oxygen Flow Rate FIO2% 11/30/21 02:15 11/30/21 02:37 11/30/21 02:38 Temperature Pulse Rate 59 L 59 L Pulse Rate [Right] Respiratory Rate 16 14 Blood Pressure 138/70 Blood Pressure [Left Arm] Blood Pressure [Right Arm] O2 Sat by Pulse Oximetry 99 93 L Oxygen Delivery Method Oxygen Flow Rate FIO2% 11/30/21 02:45 11/30/21 03:00 11/30/21 03:00 Temperature Pulse Rate 59 L 55 L Pulse Rate [Right] Respiratory Rate 20 16 Blood Pressure 140/75 Blood Pressure [Left Arm] Blood Pressure [Right Arm] O2 Sat by Pulse Oximetry 96 97 Oxygen Delivery Method Oxygen Flow Rate FIO2% 11/30/21 03:15 11/30/21 03:30 11/30/21 03:30 Temperature Pulse Rate 54 L 54 L Pulse Rate [Right] Respiratory Rate 17 16 Blood Pressure 135/67 Blood Pressure [Left Arm] Blood Pressure [Right Arm] O2 Sat by Pulse Oximetry 97 98 Oxygen Delivery Method Oxygen Flow Rate FIO2% 11/30/21 03:45 11/30/21 04:00 11/30/21 04:01 Temperature Pulse Rate 58 L 63 Pulse Rate [Right] Respiratory Rate 15 12 Blood Pressure 161/83 Blood Pressure [Left Arm] Blood Pressure [Right Arm] O2 Sat by Pulse Oximetry Oxygen Delivery Method Oxygen Flow Rate FIO2% 11/30/21 04:01 11/30/21 04:19 11/30/21 04:15 Temperature Pulse Rate 58 L 57 L Pulse Rate [Right] Respiratory Rate 20 17 Blood Pressure Blood Pressure [Left Arm] Blood Pressure [Right Arm] O2 Sat by Pulse Oximetry 98 Oxygen Delivery Method Nasal Cannula Oxygen Flow Rate FIO2% 11/30/21 04:30 11/30/21 05:40 11/30/21 04:15 Temperature Pulse Rate 60 Pulse Rate [Right] Respiratory Rate Blood Pressure Blood Pressure [Left Arm] Blood Pressure [Right Arm] O2 Sat by Pulse Oximetry 95 Oxygen Delivery Method Nasal Cannula Nasal Cannula Oxygen Flow Rate 2 3 FIO2% 32 11/30/21 04:30 11/30/21 06:11 11/30/21 08:00 Temperature 98.8 F 99.4 F Pulse Rate Pulse Rate [Right] 60 68 71 Respiratory Rate 21 18 18 Blood Pressure Blood Pressure [Left Arm] Blood Pressure [Right Arm] 174/79 135/62 123/66 O2 Sat by Pulse Oximetry 97 97 97 Oxygen Delivery Method Nasal Cannula Nasal Cannula Nasal Cannula Oxygen Flow Rate 2 2 2 FIO2% 11/30/21 08:30 11/30/21 07:00 11/30/21 12:00 Temperature 99.4 F Pulse Rate Pulse Rate [Right] 62 Respiratory Rate 18 Blood Pressure Blood Pressure [Left Arm] Blood Pressure [Right Arm] 138/72 O2 Sat by Pulse Oximetry 95 Oxygen Delivery Method Nasal Cannula Nasal Cannula Nasal Cannula Oxygen Flow Rate 2 2 2 FIO2% 28 11/30/21 16:00 11/30/21 11:00 11/30/21 12:00 Temperature 98.8 F Pulse Rate Pulse Rate [Right] 62 Respiratory Rate 18 18 18 Blood Pressure Blood Pressure [Left Arm] 112/58 Blood Pressure [Right Arm] O2 Sat by Pulse Oximetry 96 Oxygen Delivery Method Room Air Oxygen Flow Rate FIO2% 11/30/21 20:00 11/30/21 20:00 11/30/21 19:00 Temperature Pulse Rate 72 Pulse Rate [Right] Respiratory Rate Blood Pressure Blood Pressure [Left Arm] Blood Pressure [Right Arm] O2 Sat by Pulse Oximetry 98 Oxygen Delivery Method Nasal Cannula Room Air Oxygen Flow Rate 2 FIO2% 28 11/30/21 20:00 12/01/21 01:06 12/01/21 00:00 Temperature 98.5 F 97.6 F Pulse Rate Pulse Rate [Right] 67 71 Respiratory Rate 18 20 20 Blood Pressure Blood Pressure [Left Arm] 114/70 128/60 Blood Pressure [Right Arm] O2 Sat by Pulse Oximetry 98 98 Oxygen Delivery Method Room Air Room Air Oxygen Flow Rate FIO2% 12/01/21 02:06 12/01/21 04:00 12/01/21 07:00 Temperature 99.0 F Pulse Rate Pulse Rate [Right] 85 Respiratory Rate 20 20 Blood Pressure Blood Pressure [Left Arm] 105/65 Blood Pressure [Right Arm] O2 Sat by Pulse Oximetry 98 Oxygen Delivery Method Room Air Room Air Oxygen Flow Rate FIO2% 12/01/21 08:08 12/01/21 08:08 12/01/21 08:46 Temperature Pulse Rate 81 Pulse Rate [Right] Respiratory Rate 18 Blood Pressure Blood Pressure [Left Arm] Blood Pressure [Right Arm] O2 Sat by Pulse Oximetry 97 Oxygen Delivery Method Nasal Cannula Oxygen Flow Rate 2 FIO2% 28 12/01/21 08:00 12/01/21 09:46 12/01/21 12:00 Temperature 98.6 F 98.2 F Pulse Rate Pulse Rate [Right] 77 89 Respiratory Rate 18 18 18 Blood Pressure Blood Pressure [Left Arm] 114/56 119/70 Blood Pressure [Right Arm] O2 Sat by Pulse Oximetry 98 99 Oxygen Delivery Method Nasal Cannula Nasal Cannula Oxygen Flow Rate 2 2 FIO2% Labs: Laboratory Last Values WBC 10.5 X10^3/uL (3.6-10.0) H 12/01/21 07:56 RBC 2.80 X10^6/uL (4.7-6.0) L 12/01/21 07:56 Hgb 8.5 g/dL (13.5-18.0) L 12/01/21 07:56 Hct 24.5 % (42.0-54.0) L 12/01/21 07:56 MCV 87.5 fL (80.0-100.0) 12/01/21 07:56 MCH 30.2 pg (27.0-34.0) 12/01/21 07:56 MCHC 34.6 g/dL (33.0-35.0) 12/01/21 07:56 RDW 14.4 % (11.6-16.5) 12/01/21 07:56 Plt Count 458 X10^3/uL (150.0-450.0) H 12/01/21 07:56 MPV 6.9 fL (7.4-11.0) L 12/01/21 07:56 Neut % (Auto) 72.0 % (42.0-75.0) 12/01/21 07:56 Lymph % (Auto) 17.3 % (21.0-51.0) L 12/01/21 07:56 [place] % (Auto) 9.4 % (0.0-13.0) 12/01/21 07:56 Eos % (Auto) 1.1 % (0.9-2.9) 12/01/21 07:56 Baso % (Auto) 0.2 % (0.2-1.0) 12/01/21 07:56 Neut # (Auto) 7.6 x10^3/uL (2.2-4.8) H 12/01/21 07:56 Lymph # (Auto) 1.8 X10^3/uL (1.3-2.9) 12/01/21 07:56 [place] # (Auto) 1.0 x10^3/uL (0.3-0.8) H 12/01/21 07:56 Eos # (Auto) 0.1 x10^3/uL (0.0-0.2) 12/01/21 07:56 Baso # (Auto) 0.0 X10^3/uL (0.0-0.1) 12/01/21 07:56 Absolute Nucleated RBC 0.0 /100WBC 12/01/21 07:56 ESR 38 MM/HOUR (0-15) H 11/30/21 17:30 D-Dimer 2.90 ug/ml (0.0-0.57) H 11/30/21 01:34 Sample Site [place] 11/30/21 01:19 ABG pH 7.440 (7.35-7.45) 11/30/21 01:19 ABG pCO2 47.0 mmHg (35.0-45.0) H 11/30/21 01:19 ABG pO2 54.0 mmHg (80.0-100.0) L 11/30/21 01:19 ABG HCO3 31.9 mmol/L (22-26) H* 11/30/21 01:19 ABG O2 Saturation 89.0 % (90-100) L 11/30/21 01:19 ABG Base Excess 6.7 mmol/L (-2.0-2.0) H 11/30/21 01:19 [place]vin Test Pos 11/30/21 01:19 A-a Gradient 37.0 mmHg 11/30/21 01:19 FiO2 21.0 11/30/21 01:19 Blood Gas Comments Pt caden well mt 11/30/21 01:19 Sodium 137 mmol/L (136-145) 12/01/21 07:56 Corrected Sodium 138 mmol/L (136-145) 12/01/21 07:56 Potassium 3.7 mmol/L (3.5-5.1) 12/01/21 07:56 Chloride 102 mmol/L (98-107) 12/01/21 07:56 Carbon Dioxide 28.8 mmol/L (21-32) 12/01/21 07:56 BUN 17 mg/dL (7-18) 12/01/21 07:56 Creatinine 1.10 mg/dL (0.70-1.30) 12/01/21 07:56 Est GFR (MDRD) Af Amer > 60 (>60) 12/01/21 07:56 Est GFR (MDRD) Non-Af > 60 (>60) 12/01/21 07:56 Glucose 153 mg/dL (65-99) H 12/01/21 07:56 Calcium 8.1 mg/dL (8.5-10.1) L 12/01/21 07:56 Corrected Calcium 9.5 mg/dL (8.5-10.1) 12/01/21 07:56 Magnesium 2.1 mg/dL (1.7-2.9) 11/29/21 18:17 Total Bilirubin 0.10 mg/dL (0.2-1.0) L 12/01/21 07:56 AST 23 Units/L (15-37) 12/01/21 07:56 ALT 16 Units/L (12-78) 12/01/21 07:56 Alkaline Phosphatase 89 Units/L (46-116) 12/01/21 07:56 Creatine Kinase 47 Units/L (39-308) 11/30/21 00:45 Troponin I High Sens 5.7 ng/L (4.0-60.0) 11/30/21 00:45 C-Reactive Protein 90.50 mg/L (0-3.0) H 11/30/21 17:30 Total Protein 8.4 g/dL (6.4-8.2) H 12/01/21 07:56 Albumin 2.3 g/dL (3.4-5.0) L 12/01/21 07:56 Globulin 6.1 g/dL (2.5-4.5) H 12/01/21 07:56 Albumin/Globulin Ratio 0.4 Ratio (1.1-2.1) L 12/01/21 07:56 Amylase 29 Units/L (25-115) 11/30/21 00:45 Lipase 14 Units/L (73-393) L 11/30/21 00:45 Specimen Type Clean catch urine 11/29/21 19:33 Urine Color Pale yellow (YELLOW) 11/29/21 19:33 Urine Appearance Clear (CLEAR) 11/29/21 19:33 Urine pH 7.0 (5.0 - 8.0) 11/29/21 19:33 Ur Specific [place] 1.005 (1.000-1.030) 11/29/21 19:33 Urine Protein Negative (NEGATIVE) 11/29/21 19:33 Urine Glucose (UA) Negative (NEGATIVE) 11/29/21 19:33 Urine Ketones Negative (NEGATIVE) 11/29/21 19:33 Urine Blood Negative (NEGATIVE) 11/29/21 19:33 Urine Nitrite Negative (NEGATIVE) 11/29/21 19:33 Urine Bilirubin Negative (NEGATIVE) 11/29/21 19:33 Urine Urobilinogen Normal (NORMAL) 11/29/21 19:33 Ur Leukocyte Esterase Negative (NEGATIVE) 11/29/21 19:33 Urine Opiates Screen Negative (NEG=<300) 11/29/21 19:33 Urine Methadone Screen Negative (NEG=<300) 11/29/21 19:33 Ur Barbiturates Screen Negative (NEG=<200) 11/29/21 19:33 Ur Phencyclidine Scrn Negative (NEG=<25) 11/29/21 19:33 Ur Amphetamines Screen Negative (NEG=<1000) 11/29/21 19:33 U Benzodiazepines Scrn Positive (NEG=<200) 11/29/21 19:33 Urine Cocaine Screen Negative (NEG=<300) 11/29/21 19:33 U Marijuana (THC) Screen Negative (NEG=<50) 11/29/21 19:33 SARS-CoV-2 (PCR) Negative (NEGATIVE) 11/29/21 19:33 Influenza Type A (PCR) Negative (NEGATIVE) 11/29/21 19:33 Influenza Type B (PCR) Negative (NEGATIVE) 11/29/21 19:33 RSV (PCR) Negative (NEGATIVE) 11/29/21 19:33 Reason For Visit: HYPOXIA, HYPERKALEMIA, ANEMIA, COPD, BRADYCARDIA Discharge Date Discharge Date: 12/01/21 Discharge Diagnosis All Active Problems (Updated 12/01/21 @ 13:52 by Tracy Ramos) Acute hyperkalemia (Acute) Hypoxia (Acute) COPD (chronic obstructive pulmonary disease) (Acute) Bradycardia (Acute) Anemia (Acute) Hypertension (Chronic) GERD (gastroesophageal reflux disease) (Chronic) Plan of Treatment: Continue with present treatment and follow up plan. Pt is to keep follow up appointment as instructed and take medications as ordered. Discharge Medications Discharge Medications: lorazepam [From Ativan] Allergy (Verified 04/21/21 01:52) CONTINUE taking the following medications alprazolam 0.5 mg tablet 1 tab PO BID PRN 11/29/21 [History] amlodipine 5 mg tablet 1 tab PO BID 11/29/21 [History] duloxetine 60 mg capsule,delayed release 2 cap PO QDAY 11/29/21 [History] esomeprazole magnesium 40 mg capsule,delayed release 1 cap PO QDAY 11/29/21 [History] gabapentin 400 mg capsule 1 cap PO TID 11/29/21 [History] ipratropium 0.5 mg-albuterol 3 mg (2.5 mg base)/3 mL nebulization soln 1 neb NEB TID PRN 11/29/21 [History] meloxicam 15 mg tablet 1 tab PO QDAY 11/29/21 [History] nebivolol 10 mg tablet 1 tab PO QDAY PRN 11/29/21 [History] tizanidine 4 mg tablet 1 tab PO BID 11/29/21 [History] zolpidem 10 mg tablet 1 tab PO QPM PRN 11/29/21 [History] New Prescriptions azithromycin 250 mg tablet (Zithromax Z-Geronimo) 250 mg PO QDAY #4 tabs 12/01/21 [Rx] Discharge Disposition Assessment: No acute distress noted at time of discharge. Discharge Disposition: Home Discharge Condition: Stable Discharge Plan Discharge Plan Hospital Course: Pt is a 65 year old male past medical history of COPD, Hypertension, admitted for COPD exacerbation and acute hyperkalemia. His hospital/treament course included: Supplemental oxygen via nasal cannula, Antibiotics: Azithromycin, scheduled bronchodilators, and kayexelate for hyperkalemia. Labs/imaging: Wbc 10.5, Hgb 8.5, Plt 458, Na 134, K 5.4, Creatinine 1.16, Glucose 101, CT brain: no acute intracranial findings, CXR: no acute cardiopulmonary findings. CTA chest was obtained that revealed:1. No evidence of pulmonary embolism, thoracic aortic aneurysm, or dissection. 2. Heart size is normal and there is no evidence of pericardial effusion. 3. Focus consolidation is seen in left lower lobe with conglomeration of ground-glass opacities in the right midlung zone and left upper lung zone. This may represent acute or chronic airspace disease and therefore follow-up may be obtained as clinically indicated. Pt responded well to treatments. On day of discharge, pt was was alert and oriented x 3. He was also adamant about leaving the hospital even if AMA and his also supportive the narrative that she would not be able to convince him to stay or stop him. However, patient is stable and back to baseline. He was not requiring oxygen when I saw this morning but did require ambulatory oxygen on evaluation. He has been prescribed home oxygen before and has been non-compliant. Will send him home on home oxygen and set up physical therapy. Instructed to discontinue potassium supplementation. Rx Z-pack to complete antibiotic course. No wheezing on auscultation, no steroids indicated at this time, continue bronchodilators prn at home. Pt discharged in stable condition, instructed to follow up with pcp in 1 week. Patient Disposition: HOME HEALTH SERVICE Condition: Stable Health Concerns: Post Hospitalization: new medications and changes needed to prevent readmission or further decline. Pt educated and given instructions on all concerns. Care Plan Goals: Problem: Infection Goal: Temperature within normal limits. Resolved infection. Instructions: Follow provided instructions. Follow up with primary physician as directed. Contact primary care physician or report to the closest Emergency Room if condition worsens. Plan of Treatment: Continue with present treatment and follow up plan. Pt is to keep follow up appointment as instructed and take medications as ordered. Assessment: No acute distress noted at time of discharge. Prescriptions: New azithromycin [Zithromax Z-Geronimo] 250 mg Tablet 250 mg PO QDAY Qty: 4 0RF Rx Instructions: start on day 2 of therapy Discontinued potassium chloride 10 mEq tablet extended release 1 tab PO QDAY No Action folic acid 1 MG tablet 1 tab PO PRN PRN Label Comments: nebivolol [Bystolic] 10 mg tablet 10 mg PO DAILY budesonide 0.5 mg/2 mL Suspension For Nebulization 1 ea NEB BIDRESP Qty: 50 1RF Rx Instructions: INHALE ONE TREATMENT TWICE A DAY FOR 7 DAYS, THEN NEEDED tizanidine 4 mg tablet 1 tab PO BID meloxicam 15 mg tablet 1 tab PO QDAY gabapentin 400 mg capsule 1 cap PO TID amlodipine 5 mg tablet 1 tab PO BID alprazolam 0.5 mg tablet 1 tab PO BID PRN esomeprazole magnesium 40 mg capsule,delayed release(DR/EC) 1 cap PO QDAY zolpidem 10 mg tablet 1 tab PO QPM PRN duloxetine 60 mg capsule,delayed release(DR/EC) 2 cap PO QDAY nebivolol 10 mg tablet 1 tab PO QDAY PRN ipratropium-albuterol [ipratropium-albuterol] 3 ML solution for nebulization 1 neb NEB TID PRN Rx Instructions: INHALE ONE TREATMENT THREE TIMES A DAY FOR 7 DAYS, THEN NEEDED tadalafil 5 mg Tablet 5 mg PO DIRECTED PRN ibuprofen 800 mg Tablet 800 mg PO PRN PRN oxycodone-acetaminophen 10-325 mg Tablet 1 tab PO PRN PRN Follow ups/Referrals Follow ups/Referrals: FABIO MOSQUEDA [Nurse Practitioner] - 12/08/21 10:00 am Instructions Instructions: Steps to Quit Smoking, [id number], Hypoxia, Health Risks of Smoking, Antibiotic Medicine, Adult, [id number], Hyperkalemia, [id number], Bradycardia, Adult, Leukocytosis, You've Been Prescribed an Antibiotic in the Hospital for an Infection - CDC, Managing Your Hypertension Stand Alone Forms: Precautions for [place] [id number], [facility], Patient Portal, Social Distancing Patient Education Addl Reference Links: Hypokalemia [email or web address]&[email or web address] [email or web address]=[email or web address].u=a&p erformer=PROV&[email or web address] [email or web address]=[email or web address]&[id number]
== END 2021-12-01 14:25 | disposition home health service (06) | DRG 192 ==
LOC: ER 17:46 → MED/SURG 11-30 04:12
PROVIDERS: ADMIT Family Medicine; ATTEND Family Medicine
DX: R94.31 Abnormal electrocardiogram [ECG] [EKG]; R79.82 Elevated C-reactive protein (CRP); Z72.0 Tobacco use; D64.89 Other specified anemias; Z20.822 Contact with and (suspected) exposure to COVID-19; I10 Essential (primary) hypertension; R00.1 Bradycardia, unspecified; E87.5 Hyperkalemia; J44.1 Chronic obstructive pulmonary disease with (acute) exacerbation